=== PATIENT | female | born 1950 | race African-American/Black ===

== ENCOUNTER 2016-06-23 15:23 | Inpatient (IN) | payer OTHER, MEDICAID ==
[~2016-06-23] VITALS: Ht 167.6 cm; Wt 69.0 kg
[~2016-06-23 15:23] MED LIST: AMLO-512 PO; ASPI-1093 PO; DOXY50CA2 PO; LISI-662 PO; METF500T4 PO; METO50 PO; QUET300T2 PO; SIMV20TA6 PO
[2016-06-23 17:13] LABS: BASOPHILS % (AUTO) 0.2 % (0.0-2.0); EOSINOPHILS % (AUTO) 2.3 % (1.0-6.0); HEMATOCRIT 38.1 % (36-46); HEMOGLOBIN 12.6 g/dL (12.0-16.0); LYMPHOCYTES # (AUTO) 1.6 K/uL (1.0-4.8); LYMPHOCYTES % (AUTO) 13.1 % (22.0-44.0); MEAN CORPUSCULAR HEMOGLOBIN 31.9 pg (26.0-34.0); MEAN CORPUSCULAR HGB CONC 32.9 G/dL (31.0-37.0); MEAN CORPUSCULAR VOLUME 97 fL (80-100); MONOCYTES # (AUTO) 1.1 K/uL (0.1-1.0); MONOCYTES % (AUTO) 9.1 % (2.0-9.0); NEUTROPHILS # (AUTO) 9.3 K/uL (1.8-7.7); NEUTROPHILS % (AUTO) 75.3 % (40.0-70.0); PLATELET COUNT (AUTO) 325 K/uL (150-450); RED BLOOD CELL COUNT(AUTO) 3.94 MIL/uL (4.00-5.20); RED CELL DISTRIBUTION WIDTH 14.6 % (11.5-14.5); WHITE BLOOD COUNT (AUTO) 12.4 K/uL (4.5-11.0)
[2016-06-23 17:30] LABS: ANION GAP 20 mmol/L (8-16); CALCIUM, TOTAL 9.3 mg/dL (8.8-10.5); CARBON DIOXIDE 17 mmol/L (22-29); CHLORIDE 104 mmol/L (98-107); CREATININE 2.21 mg/dL (0.60-1.30); GLOMERULAR FILTR. RATE CALC 27 mL/min (>60); SODIUM SERUM 141 mmol/L (136-145); UREA NITROGEN, BLOOD 27 mg/dL (7-18)
[2016-06-23 17:37] LABS: ALANINE AMINOTRANSFERASE 43 U/L (12-78); ALBUMIN 3.6 g/dL (3.4-5.0); ASPARTATE AMINOTRANSFERASE 41 U/L (15-37); BILIRUBIN,TOTAL 0.6 mg/dL (0.1-1.0); TOTAL PROTEIN, SERUM 7.7 g/dL (6.4-8.2)
[2016-06-23 20:40] LABS: GLUCOSE,POINT OF CARE 137 MG/DL (70-110)
[2016-06-23] MEDS ORDERED: SODIUM CHLORIDE 0.9% 1,000 ML IV ONE (22:30)
[2016-06-24] MEDS ORDERED: HALOPERIDOL 5 MG TABLET PO PRN (00:15)
[2016-06-24] MEDS ORDERED: ZOLPIDEM TARTRATE 10 MG TABLET PO PRN (00:15)
[2016-06-24 02:42] VITALS: BP 100/71
[2016-06-24 06:26] LABS: GLUCOSE,POINT OF CARE 122 MG/DL (70-110)
[2016-06-24 08:49] VITALS: BP 164/105
[2016-06-24] MEDS: AmLODIPine BESYLATE 10 MG TABLET PO SCH (10:22)
[2016-06-24] MEDS: ASPIRIN 81 MG EC TABLET PO SCH (10:22)
[2016-06-24] MEDS: SIMVASTATIN 20 MG TABLET PO SCH (10:22)
[2016-06-24] MEDS: METOPROLOL TARTRATE 50 MG TABLET PO SCH (13:07)
[2016-06-24 13:45] VITALS: BP 129/93
[2016-06-24 16:20] LABS: GLUCOSE,POINT OF CARE 177 MG/DL (70-110)
[2016-06-24] MEDS: MetFORMIN HCL 500 MG TABLET PO SCH (16:50)
[2016-06-24] MEDS: LORazepam 2 MG TABLET PO PRN (16:50)
[2016-06-24 18:07] VITALS: BP 125/72
[2016-06-24 20:35] LABS: GLUCOSE,POINT OF CARE 143 MG/DL (70-110)
[2016-06-25] MEDS: MetFORMIN HCL 500 MG TABLET PO SCH ×2 (06:49→16:35)
[2016-06-25 06:51] LABS: GLUCOSE,POINT OF CARE 135 MG/DL (70-110)
[2016-06-25 06:56] VITALS: BP 138/86
[2016-06-25] MEDS: MULTIVITAMINS WITH MINERALS, THERAPEUTIC TABLET PO SCH (09:25)
[2016-06-25] MEDS: METOPROLOL TARTRATE 50 MG TABLET PO SCH (09:25)
[2016-06-25] MEDS: AmLODIPine BESYLATE 10 MG TABLET PO SCH (09:26)
[2016-06-25] MEDS: ASPIRIN 81 MG EC TABLET PO SCH (09:26)
[2016-06-25] MEDS: SIMVASTATIN 20 MG TABLET PO SCH (09:26)
[2016-06-25 09:33] LABS: APPEARANCE,URINE CLOUDY (CLEAR); GLUCOSE, URINE (UA) NEGATIVE (NEGATIVE); KETONES,URINE 15 mg/dL (NEGATIVE); LEUKOCYTE ESTERASE ,URINE MODERATE (NEGATIVE); OCCULT BLOOD,URINE TRACE (NEGATIVE); PROTEIN,URINE SEE CONFIRM (NEGATIVE)
[2016-06-25 09:38] LABS: ADD UA MICROSCOPIC YES
[2016-06-25 09:39] LABS: SULFOSALICYLIC ACID,URINE 2+ (Negative)
[2016-06-25 09:41] LABS: RENAL EPITHELIAL CELLS,URINE Few /LPF (None Seen); SQUAMOUS EPITHELIAL CELL,UR Few /LPF (None Seen); WBC,URINE 51-100 /HPF (0-5)
[2016-06-25 11:05] LABS: GLUCOSE,POINT OF CARE 112 MG/DL (70-110)
[2016-06-25] MEDS ORDERED: PERMETHRIN 5% 60 GM CREAM TP ONE (11:30)
[2016-06-25] MEDS: CEPHALEXIN MONOHYDRATE 500 MG CAPSULE PO SCH ×2 (13:00→16:35)
[2016-06-25 16:19] VITALS: BP 145/86
[2016-06-25] MEDS: DOXYCYCLINE 100 MG CAPSULE PO SCH (16:35)
[2016-06-25 16:46] LABS: GLUCOSE COMMENT 1 Received Meds; GLUCOSE,POINT OF CARE 118 MG/DL (70-110)
[2016-06-25 17:31] VITALS: BP 130/76
[2016-06-25] MEDS: QUEtiapine FUMARATE 300 MG TABLET PO SCH (20:08)
[2016-06-25 20:36] LABS: GLUCOSE COMMENT 1 Received Meds; GLUCOSE,POINT OF CARE 168 MG/DL (70-110)
[2016-06-26] MEDS: MetFORMIN HCL 500 MG TABLET PO SCH ×2 (06:55→17:00)
[2016-06-26] MEDS: CEPHALEXIN MONOHYDRATE 500 MG CAPSULE PO SCH ×3 (09:00→16:54)
[2016-06-26] MEDS: ASPIRIN 81 MG EC TABLET PO SCH (09:00)
[2016-06-26] MEDS: SIMVASTATIN 20 MG TABLET PO SCH (09:00)
[2016-06-26] MEDS: METOPROLOL TARTRATE 50 MG TABLET PO SCH (09:00)
[2016-06-26] MEDS: MULTIVITAMINS WITH MINERALS, THERAPEUTIC TABLET PO SCH (09:00)
[2016-06-26] MEDS: DOXYCYCLINE 100 MG CAPSULE PO SCH ×2 (09:00→16:54)
[2016-06-26] MEDS: AmLODIPine BESYLATE 10 MG TABLET PO SCH (09:00)
[2016-06-26 09:25] VITALS: BP 126/93
[2016-06-26 11:26] LABS: GLUCOSE,POINT OF CARE 118 MG/DL (70-110)
[2016-06-26 16:12] VITALS: BP 155/68
[2016-06-26 17:01] LABS: GLUCOSE,POINT OF CARE 124 MG/DL (70-110)
[2016-06-26] MEDS: LORazepam 2 MG TABLET PO PRN (17:26)
[2016-06-26 20:35] VITALS: BP 161/110
[2016-06-26] MEDS: CloNIDine HCL 0.1 MG TABLET PO PRN (20:37)
[2016-06-26] MEDS: QUEtiapine FUMARATE 300 MG TABLET PO SCH (20:37)
[2016-06-26 21:44] VITALS: BP 148/73
[2016-06-27] MEDS: MetFORMIN HCL 500 MG TABLET PO SCH ×2 (07:00→17:00)
[2016-06-27 09:45] VITALS: BP 175/105
[2016-06-27] MEDS: CEPHALEXIN MONOHYDRATE 500 MG CAPSULE PO SCH ×3 (09:45→17:00)
[2016-06-27] MEDS: METOPROLOL TARTRATE 50 MG TABLET PO SCH (09:45)
[2016-06-27] MEDS: ASPIRIN 81 MG EC TABLET PO SCH (09:45)
[2016-06-27] MEDS: MULTIVITAMINS WITH MINERALS, THERAPEUTIC TABLET PO SCH (09:46)
[2016-06-27] MEDS: AmLODIPine BESYLATE 10 MG TABLET PO SCH (09:46)
[2016-06-27] MEDS: DOXYCYCLINE 100 MG CAPSULE PO SCH ×2 (09:46→17:00)
[2016-06-27] MEDS: SIMVASTATIN 20 MG TABLET PO SCH (09:46)
[2016-06-27 11:25] VITALS: BP 164/101
[2016-06-27] MEDS: LORazepam 2 MG TABLET PO PRN ×2 (11:28→17:20)
[2016-06-27] MEDS: CloNIDine HCL 0.1 MG TABLET PO PRN ×2 (11:28→17:20)
[2016-06-27 12:30] VITALS: BP 110/56
[2016-06-27 13:06] LABS: GLUCOSE,POINT OF CARE 159 MG/DL (70-110)
[2016-06-27 17:00] VITALS: BP 160/112
[2016-06-27 18:00] VITALS: BP 120/82
[2016-06-27] MEDS: QUEtiapine FUMARATE 300 MG TABLET PO SCH (20:09)
[2016-06-28 06:17] LABS: GLUCOSE,POINT OF CARE 137 MG/DL (70-110)
[2016-06-28] MEDS: MetFORMIN HCL 500 MG TABLET PO SCH ×2 (06:44→16:33)
[2016-06-28] MEDS: MULTIVITAMINS WITH MINERALS, THERAPEUTIC TABLET PO SCH (09:00)
[2016-06-28] MEDS: DOXYCYCLINE 100 MG CAPSULE PO SCH ×2 (09:00→16:33)
[2016-06-28] MEDS: ASPIRIN 81 MG EC TABLET PO SCH (09:00)
[2016-06-28] MEDS: ZINC OXIDE PASTE 60 GM TUBE TP SCH ×3 (09:00→17:00)
[2016-06-28] MEDS: AmLODIPine BESYLATE 10 MG TABLET PO SCH (09:00)
[2016-06-28] MEDS: SIMVASTATIN 20 MG TABLET PO SCH (09:00)
[2016-06-28] MEDS: CEPHALEXIN MONOHYDRATE 500 MG CAPSULE PO SCH ×3 (09:00→16:34)
[2016-06-28] MEDS: METOPROLOL TARTRATE 50 MG TABLET PO SCH (09:00)
[2016-06-28 16:24] VITALS: BP 156/90
[2016-06-28 16:31] LABS: GLUCOSE,POINT OF CARE 178 MG/DL (70-110)
[2016-06-28 19:41] LABS: GLUCOSE,POINT OF CARE 171 MG/DL (70-110)
[2016-06-28] MEDS: CloNIDine HCL 0.1 MG TABLET PO PRN (19:51)
[2016-06-28 19:52] VITALS: BP 169/116
[2016-06-28] MEDS: QUEtiapine FUMARATE 300 MG TABLET PO SCH (20:41)
[2016-06-28 21:06] VITALS: BP 150/92
[2016-06-28] MEDS: ZOLPIDEM TARTRATE 10 MG TABLET PO SCH (21:08)
[2016-06-29 01:21] VITALS: BP 144/95
[2016-06-29] MEDS: MetFORMIN HCL 500 MG TABLET PO SCH ×2 (06:56→17:12)
[2016-06-29 08:15] VITALS: BP 171/101
[2016-06-29] MEDS: AmLODIPine BESYLATE 10 MG TABLET PO SCH (08:25)
[2016-06-29] MEDS: ASPIRIN 81 MG EC TABLET PO SCH (08:25)
[2016-06-29] MEDS: CloNIDine HCL 0.1 MG TABLET PO PRN (08:25)
[2016-06-29] MEDS: SIMVASTATIN 20 MG TABLET PO SCH (08:27)
[2016-06-29] MEDS: CEPHALEXIN MONOHYDRATE 500 MG CAPSULE PO SCH ×3 (08:45→17:12)
[2016-06-29] MEDS: METOPROLOL TARTRATE 50 MG TABLET PO SCH (08:47)
[2016-06-29] MEDS: DOXYCYCLINE 100 MG CAPSULE PO SCH ×2 (08:47→17:12)
[2016-06-29] MEDS: MULTIVITAMINS WITH MINERALS, THERAPEUTIC TABLET PO SCH (08:47)
[2016-06-29] MEDS: ZINC OXIDE PASTE 60 GM TUBE TP SCH ×3 (08:54→17:00)
[2016-06-29 10:35] VITALS: BP 151/89
[2016-06-29] MEDS: LORazepam 2 MG TABLET PO PRN (16:37)
[2016-06-29 16:38] VITALS: BP 121/76
[2016-06-29 16:41] LABS: GLUCOSE,POINT OF CARE 236 MG/DL (70-110)
[2016-06-29] MEDS: INSULIN ASPART 100 UNITS/ML SQ PRN ×2 (17:27→20:27)
[2016-06-29] MEDS ORDERED: GLUCAGON,HUMAN RECOMBINANT 1 MG VIAL IM PRN (17:30)
[2016-06-29 20:01] LABS: GLUCOSE,POINT OF CARE 169 MG/DL (70-110)
[2016-06-29] MEDS: ZOLPIDEM TARTRATE 10 MG TABLET PO SCH (20:28)
[2016-06-29] MEDS: QUEtiapine FUMARATE 300 MG TABLET PO SCH (20:28)
[2016-06-29 23:15] VITALS: BP 146/96
[2016-06-29 23:35] VITALS: BP_SYST 146; BP_SYST 149; BP_DIAS 81; BP_DIAS 96
[2016-06-30] VITALS (7 sets, daily range): BP systolic 120–167; BP diastolic 70–105
[2016-06-30] MEDS: MetFORMIN HCL 500 MG TABLET PO SCH ×2 (06:56→16:45)
[2016-06-30] MEDS: METOPROLOL TARTRATE 50 MG TABLET PO SCH (09:00)
[2016-06-30] MEDS: ZINC OXIDE PASTE 60 GM TUBE TP SCH ×3 (09:00→16:08)
[2016-06-30] MEDS: DOXYCYCLINE 100 MG CAPSULE PO SCH ×2 (09:00→16:45)
[2016-06-30] MEDS: SIMVASTATIN 20 MG TABLET PO SCH (09:00)
[2016-06-30] MEDS: CEPHALEXIN MONOHYDRATE 500 MG CAPSULE PO SCH ×3 (09:00→16:46)
[2016-06-30] MEDS: MULTIVITAMINS WITH MINERALS, THERAPEUTIC TABLET PO SCH (09:00)
[2016-06-30] MEDS: AmLODIPine BESYLATE 10 MG TABLET PO SCH (09:01)
[2016-06-30] MEDS: ASPIRIN 81 MG EC TABLET PO SCH (09:02)
[2016-06-30 12:01] LABS: GLUCOSE,POINT OF CARE 121 MG/DL (70-110)
[2016-06-30] MEDS ORDERED: OxyCODONE HCL/ACETAMINOPHEN 5-325 MG TABLET PO ONE (14:15)
[2016-06-30] MEDS ORDERED: IBUPROFEN 400 MG TABLET PO PRN (15:30)
[2016-06-30] MEDS: INSULIN ASPART 100 UNITS/ML SQ PRN ×2 (16:58→20:27)
[2016-06-30 17:11] LABS: GLUCOSE COMMENT 1 Received Meds; GLUCOSE,POINT OF CARE 148 MG/DL (70-110)
[2016-06-30] MEDS: CloNIDine HCL 0.1 MG TABLET PO PRN (17:35)
[2016-06-30] MEDS: ZOLPIDEM TARTRATE 10 MG TABLET PO SCH (20:04)
[2016-06-30] MEDS: QUEtiapine FUMARATE 300 MG TABLET PO SCH (20:04)
[2016-06-30 20:26] LABS: GLUCOSE COMMENT 1 Received Meds; GLUCOSE,POINT OF CARE 158 MG/DL (70-110)
[2016-07-01] VITALS (7 sets, daily range): BP systolic 107–172; BP diastolic 76–94
[2016-07-01 06:31] LABS: GLUCOSE,POINT OF CARE 134 MG/DL (70-110)
[2016-07-01] MEDS: MetFORMIN HCL 500 MG TABLET PO SCH ×2 (06:41→16:48)
[2016-07-01] MEDS: DOXYCYCLINE 100 MG CAPSULE PO SCH ×2 (08:29→16:48)
[2016-07-01] MEDS: CEPHALEXIN MONOHYDRATE 500 MG CAPSULE PO SCH ×3 (08:30→16:48)
[2016-07-01] MEDS: ZINC OXIDE PASTE 60 GM TUBE TP SCH ×3 (08:30→17:15)
[2016-07-01] MEDS: AmLODIPine BESYLATE 10 MG TABLET PO SCH (08:30)
[2016-07-01] MEDS: SIMVASTATIN 20 MG TABLET PO SCH (08:30)
[2016-07-01] MEDS: METOPROLOL TARTRATE 25 MG TABLET PO SCH (08:30)
[2016-07-01] MEDS: ASPIRIN 81 MG EC TABLET PO SCH (08:30)
[2016-07-01] MEDS: MULTIVITAMINS WITH MINERALS, THERAPEUTIC TABLET PO SCH (08:30)
[2016-07-01 11:36] LABS: GLUCOSE,POINT OF CARE 100 MG/DL (70-110)
[2016-07-01] MEDS: ACETAMINOPHEN 325 MG TABLET PO PRN (13:52)
[2016-07-01] MEDS: NICOTINE 14 MG/24 HOUR PATCH TD SCH (15:08)
[2016-07-01 16:31] LABS: GLUCOSE,POINT OF CARE 148 MG/DL (70-110)
[2016-07-01] MEDS: INSULIN ASPART 100 UNITS/ML SQ PRN ×2 (16:50→20:53)
[2016-07-01] MEDS: DiphenhydrAMINE/ZINC ACET 30 GM CREAM TP PRN (18:01)
[2016-07-01 20:16] LABS: GLUCOSE,POINT OF CARE 172 MG/DL (70-110)
[2016-07-01] MEDS: ZOLPIDEM TARTRATE 10 MG TABLET PO SCH (20:42)
[2016-07-01] MEDS: QUEtiapine FUMARATE 100 MG TABLET PO SCH (20:46)
[2016-07-02 03:47] VITALS: BP 107/83
[2016-07-02 06:26] LABS: GLUCOSE,POINT OF CARE 111 MG/DL (70-110)
[2016-07-02] MEDS: MetFORMIN HCL 500 MG TABLET PO SCH ×2 (06:38→16:50)
[2016-07-02] MEDS: DOXYCYCLINE 100 MG CAPSULE PO SCH ×2 (08:44→16:50)
[2016-07-02] MEDS: SIMVASTATIN 20 MG TABLET PO SCH (08:44)
[2016-07-02] MEDS: MULTIVITAMINS WITH MINERALS, THERAPEUTIC TABLET PO SCH (08:44)
[2016-07-02] MEDS: METOPROLOL TARTRATE 25 MG TABLET PO SCH (08:44)
[2016-07-02] MEDS: AmLODIPine BESYLATE 10 MG TABLET PO SCH (08:44)
[2016-07-02] MEDS: CEPHALEXIN MONOHYDRATE 500 MG CAPSULE PO SCH ×3 (08:44→16:50)
[2016-07-02] MEDS: ASPIRIN 81 MG EC TABLET PO SCH (08:44)
[2016-07-02] MEDS: NICOTINE 14 MG/24 HOUR PATCH TD SCH (08:45)
[2016-07-02] MEDS: ZINC OXIDE PASTE 60 GM TUBE TP SCH ×3 (08:47→16:58)
[2016-07-02] MEDS: DiphenhydrAMINE/ZINC ACET 30 GM CREAM TP PRN (08:47)
[2016-07-02 09:21] VITALS: BP 149/83
[2016-07-02 11:46] LABS: GLUCOSE,POINT OF CARE 104 MG/DL (70-110)
[2016-07-02 16:10] VITALS: BP 142/80
[2016-07-02 16:38] VITALS: BP 142/80
[2016-07-02 16:46] LABS: GLUCOSE,POINT OF CARE 144 MG/DL (70-110)
[2016-07-02] MEDS: INSULIN ASPART 100 UNITS/ML SQ PRN (16:50)
[2016-07-02] MEDS: HYDROCORTISONE 1% 30 GM OINTMENT TP SCH (18:00)
[2016-07-02 19:48] VITALS: BP 163/94
[2016-07-02] MEDS: CloNIDine HCL 0.1 MG TABLET PO PRN (19:48)
[2016-07-02] MEDS: ACETAMINOPHEN 325 MG TABLET PO PRN (19:50)
[2016-07-02 20:30] LABS: GLUCOSE,POINT OF CARE 101 MG/DL (70-110)
[2016-07-02 20:50] VITALS: BP 124/74
[2016-07-02] MEDS: QUEtiapine FUMARATE 100 MG TABLET PO SCH (21:07)
[2016-07-02] MEDS: ZOLPIDEM TARTRATE 10 MG TABLET PO SCH (21:07)
[2016-07-03 04:49] VITALS: BP 125/83
[2016-07-03] MEDS: MetFORMIN HCL 500 MG TABLET PO SCH ×3 (06:21→16:31)
[2016-07-03 06:47] LABS: GLUCOSE,POINT OF CARE 128 MG/DL (70-110)
[2016-07-03 09:05] VITALS: BP 125/82
[2016-07-03] MEDS: ASPIRIN 81 MG EC TABLET PO SCH (09:05)
[2016-07-03] MEDS: CEPHALEXIN MONOHYDRATE 500 MG CAPSULE PO SCH ×3 (09:05→16:31)
[2016-07-03] MEDS: SIMVASTATIN 20 MG TABLET PO SCH (09:05)
[2016-07-03] MEDS: DOXYCYCLINE 100 MG CAPSULE PO SCH ×2 (09:05→16:31)
[2016-07-03] MEDS: MULTIVITAMINS WITH MINERALS, THERAPEUTIC TABLET PO SCH (09:05)
[2016-07-03] MEDS: AmLODIPine BESYLATE 10 MG TABLET PO SCH (09:05)
[2016-07-03] MEDS: METOPROLOL TARTRATE 25 MG TABLET PO SCH (09:06)
[2016-07-03] MEDS: ZINC OXIDE PASTE 60 GM TUBE TP SCH ×3 (10:10→16:33)
[2016-07-03] MEDS: HYDROCORTISONE 1% 30 GM OINTMENT TP SCH ×2 (10:10→16:33)
[2016-07-03] MEDS: NICOTINE 14 MG/24 HOUR PATCH TD SCH (10:11)
[2016-07-03 10:55] LABS: GLUCOSE COMMENT 1 Received Meds; GLUCOSE,POINT OF CARE 80 MG/DL (70-110)
[2016-07-03 16:09] VITALS: BP 124/62
[2016-07-03 16:35] LABS: GLUCOSE COMMENT 1 Received Meds; GLUCOSE,POINT OF CARE 139 MG/DL (70-110)
[2016-07-03] MEDS: ACETAMINOPHEN 325 MG TABLET PO PRN (19:31)
[2016-07-03] MEDS: ZOLPIDEM TARTRATE 10 MG TABLET PO SCH (19:58)
[2016-07-03] MEDS: QUEtiapine FUMARATE 100 MG TABLET PO SCH (19:58)
[2016-07-03 20:01] LABS: GLUCOSE COMMENT 1 Received Meds; GLUCOSE,POINT OF CARE 122 MG/DL (70-110)
[2016-07-04 06:11] LABS: GLUCOSE,POINT OF CARE 92 MG/DL (70-110)
[2016-07-04 06:33] VITALS: BP 127/97
[2016-07-04] MEDS: MetFORMIN HCL 500 MG TABLET PO SCH ×2 (07:00→16:33)
[2016-07-04] MEDS: SIMVASTATIN 20 MG TABLET PO SCH (08:52)
[2016-07-04] MEDS: ASPIRIN 81 MG EC TABLET PO SCH (08:52)
[2016-07-04] MEDS: METOPROLOL TARTRATE 25 MG TABLET PO SCH (08:52)
[2016-07-04] MEDS: AmLODIPine BESYLATE 10 MG TABLET PO SCH (08:53)
[2016-07-04] MEDS: MULTIVITAMINS WITH MINERALS, THERAPEUTIC TABLET PO SCH (08:53)
[2016-07-04] MEDS: NICOTINE 14 MG/24 HOUR PATCH TD SCH (08:53)
[2016-07-04] MEDS: CEPHALEXIN MONOHYDRATE 500 MG CAPSULE PO SCH ×3 (08:53→16:33)
[2016-07-04] MEDS: DOXYCYCLINE 100 MG CAPSULE PO SCH ×2 (08:53→16:33)
[2016-07-04 08:54] VITALS: BP 170/103
[2016-07-04] MEDS: HYDROCORTISONE 1% 30 GM OINTMENT TP SCH ×2 (09:04→16:34)
[2016-07-04] MEDS: ZINC OXIDE PASTE 60 GM TUBE TP SCH ×3 (09:04→16:33)
[2016-07-04 10:35] VITALS: BP 164/96
[2016-07-04] MEDS: CloNIDine HCL 0.1 MG TABLET PO PRN (10:45)
[2016-07-04 11:06] LABS: GLUCOSE,POINT OF CARE 108 MG/DL (70-110)
[2016-07-04 11:50] VITALS: BP 149/91
[2016-07-04 16:06] VITALS: BP 126/81
[2016-07-04 16:16] LABS: GLUCOSE,POINT OF CARE 98 MG/DL (70-110)
[2016-07-04 20:26] LABS: GLUCOSE,POINT OF CARE 123 MG/DL (70-110)
[2016-07-04] MEDS: QUEtiapine FUMARATE 100 MG TABLET PO SCH (21:04)
[2016-07-04] MEDS: ZOLPIDEM TARTRATE 10 MG TABLET PO SCH (21:04)
[2016-07-05] MEDS: MetFORMIN HCL 500 MG TABLET PO SCH ×2 (07:00→07:21)
[2016-07-05] MEDS: DOXYCYCLINE 100 MG CAPSULE PO SCH (08:33)
[2016-07-05] MEDS: ASPIRIN 81 MG EC TABLET PO SCH (08:33)
[2016-07-05] MEDS: MULTIVITAMINS WITH MINERALS, THERAPEUTIC TABLET PO SCH (08:33)
[2016-07-05] MEDS: SIMVASTATIN 20 MG TABLET PO SCH (08:33)
[2016-07-05] MEDS: AmLODIPine BESYLATE 10 MG TABLET PO SCH (08:33)
[2016-07-05] MEDS: NICOTINE 14 MG/24 HOUR PATCH TD SCH (08:33)
[2016-07-05] MEDS: METOPROLOL TARTRATE 25 MG TABLET PO SCH (08:33)
[2016-07-05] MEDS: CEPHALEXIN MONOHYDRATE 500 MG CAPSULE PO SCH ×2 (08:33→12:33)
[2016-07-05] MEDS: HYDROCORTISONE 1% 30 GM OINTMENT TP SCH (08:34)
[2016-07-05] MEDS: ZINC OXIDE PASTE 60 GM TUBE TP SCH ×2 (08:34→12:33)
[2016-07-05 08:42] VITALS: BP 128/82
[2016-07-05 11:21] LABS: GLUCOSE,POINT OF CARE 109 MG/DL (70-110)
[2016-07-05] MEDS ORDERED: ZOLP10 PO (14:06)
== END 2016-07-05 14:30 | disposition home or self-care (01) | DRG 885 ==
LOC: EMS 15:25 → B2X 06-24 00:09
PROVIDERS: ADMIT Psychiatry & Neurology Psychiatry; ATTEND Psychiatry & Neurology Psychiatry
DX: F25.0 Schizoaffective disorder, bipolar type (principal); N39.0 Urinary tract infection, site not specified; F12.10 Cannabis abuse, uncomplicated; F15.10 Other stimulant abuse, uncomplicated; K21.9 Gastro-esophageal reflux disease without esophagitis; F17.210 Nicotine dependence, cigarettes, uncomplicated; E78.00 Pure hypercholesterolemia, unspecified; I25.10 Atherosclerotic heart disease of native coronary artery without angina pectoris; J44.9 Chronic obstructive pulmonary disease, unspecified; E86.0 Dehydration; M19.90 Unspecified osteoarthritis, unspecified site; E11.22 Type 2 diabetes mellitus with diabetic chronic kidney disease; I12.9 Hypertensive chronic kidney disease with stage 1 through stage 4 chronic kidney disease, or unspecified chronic kidney disease; N18.3 Chronic kidney disease, stage 3 (moderate); E78.5 Hyperlipidemia, unspecified; L30.9 Dermatitis, unspecified; Z90.710 Acquired absence of both cervix and uterus; Z95.1 Presence of aortocoronary bypass graft; Z91.14 Patient's other noncompliance with medication regimen; Z79.899 Other long term (current) drug therapy; Z86.73 Personal history of transient ischemic attack (TIA), and cerebral infarction without residual deficits; Z79.82 Long term (current) use of aspirin; Z79.84 Long term (current) use of oral hypoglycemic drugs
CPT/HCPCS: 80307; 82962; 87081; 87086; 93005; 96360; 96361; 99285; G0480

== ENCOUNTER 2016-08-01 21:57 | Inpatient (IN) | payer MEDICARE, MEDICAID ==
[~2016-08-01] VITALS: Ht 165.1 cm; Wt 71.2 kg
[~2016-08-01 21:57] MED LIST changes: -LISI-662 PO; +ZOLP10 PO
[2016-08-01] MEDS ORDERED: ESCI10TA PO (22:15)
[2016-08-01] MEDS ORDERED: DIPH25CA48 PO (22:15)
[2016-08-01] MEDS ORDERED: LISI-662 PO (22:15)
[2016-08-01] MEDS ORDERED: CLON.1 PO (22:15)
[2016-08-01] MEDS ORDERED: BACL10TA PO (22:15)
[2016-08-01] MEDS ORDERED: LORA10TA7 PO (22:15)
[2016-08-01] MEDS ORDERED: D-ME118S13 PO (22:15)
[2016-08-01 22:16] LABS: GLUCOSE,POINT OF CARE 127 MG/DL (70-110)
[2016-08-01 23:00] LABS: BASOPHILS # (AUTO) 0.01 K/uL (0.00-0.20); BASOPHILS % (AUTO) 0.1 % (0.0-2.0); EOSINOPHILS # (AUTO) 0.46 K/uL (0.00-0.70); EOSINOPHILS % (AUTO) 3.55 % (1.0-6.0); HEMATOCRIT 40.8 % (36-46); HEMOGLOBIN 13.5 g/dL (12.0-16.0); LYMPHOCYTES # (AUTO) 2.2 K/uL (1.0-4.8); LYMPHOCYTES % (AUTO) 17.2 % (22.0-44.0); MEAN CORPUSCULAR HEMOGLOBIN 31.1 pg (26.0-34.0); MEAN CORPUSCULAR HGB CONC 33.1 G/dL (31.0-37.0); MEAN CORPUSCULAR VOLUME 94 fL (80-100); MONOCYTES # (AUTO) 0.7 K/uL (0.1-1.0); NEUTROPHILS # (AUTO) 9.7 K/uL (1.8-7.7); NEUTROPHILS % (AUTO) 74.2 % (40.0-70.0); PLATELET COUNT (AUTO) 280 K/uL (150-450); RED BLOOD CELL COUNT(AUTO) 4.34 MIL/uL (4.00-5.20); RED CELL DISTRIBUTION WIDTH 15.7 % (11.5-14.5)
[2016-08-01 23:05] LABS: APPEARANCE,URINE CLEAR (CLEAR); GLUCOSE, URINE (UA) NEGATIVE (NEGATIVE); KETONES,URINE 40 mg/dL (NEGATIVE); LEUKOCYTE ESTERASE ,URINE NEGATIVE (NEGATIVE); OCCULT BLOOD,URINE TRACE (NEGATIVE); PH,URINE 5.5 (5.0-8.0); PROTEIN,URINE SEE CONFIRM (NEGATIVE)
[2016-08-01 23:08] LABS: ADD UA MICROSCOPIC YES
[2016-08-01 23:10] LABS: ANION GAP 19 mmol/L (8-16); CALCIUM, TOTAL 9.8 mg/dL (8.8-10.5); CARBON DIOXIDE 17 mmol/L (22-29); CHLORIDE 108 mmol/L (98-107); CREATININE 1.07 mg/dL (0.60-1.30); GLOMERULAR FILTR. RATE CALC > 60 mL/min (>60); INR 1.1 (0.9-1.1); POTASSIUM 3.9 mmol/L (3.5-5.1); PROTHROMBIN TIME 11.2 SEC (9.4-11.6); SODIUM SERUM 144 mmol/L (136-145); UREA NITROGEN, BLOOD 23 mg/dL (7-18)
[2016-08-01 23:18] LABS: TROPONIN I 0.21 ng/mL (0.00-0.05)
[2016-08-01 23:34] LABS: ALANINE AMINOTRANSFERASE 20 U/L (12-78); ALBUMIN 3.7 g/dL (3.4-5.0); ASPARTATE AMINOTRANSFERASE 25 U/L (15-37); BILIRUBIN,TOTAL 0.9 mg/dL (0.1-1.0); CREATINE KINASE MB 3.1 ng/mL (0-5); CREATINE KINASE, TOTAL 98 U/L (26-192); TOTAL PROTEIN, SERUM 7.8 g/dL (6.4-8.2)
[2016-08-01 23:43] LABS: AMORPHOUS SEDIMENT,UR Few /LPF (None Seen); RBC,URINE 0-2 /HPF (0-2); SQUAMOUS EPITHELIAL CELL,UR Few /LPF (None Seen); WBC,URINE None Seen /HPF (0-5)
[2016-08-01 23:44] LABS: HYALINE CASTS, URINE 0-2 /LPF (None Seen); SULFOSALICYLIC ACID,URINE Trace (Negative)
[2016-08-02] MEDS ORDERED: LABETALOL HCL 200 MG in DEXTROSE 5%-WATER 160 ML IV PRN ×2
[2016-08-02] MEDS ORDERED: ONDANSETRON HCL 4 MG/2 ML VIAL IVP PRN (00:30)
[2016-08-02 02:57] LABS: GLUCOSE,POINT OF CARE 134 MG/DL (70-110)
[2016-08-02] MEDS ORDERED: LISINOPRIL 20 MG TABLET PO ONE (11:15)
[2016-08-02] MEDS ORDERED: NICOTINE 21 MG/24 HOUR PATCH TD ONE (16:00)
[2016-08-02 16:53] LABS: CREATINE KINASE, TOTAL 53 U/L (26-192)
[2016-08-02] MEDS ORDERED: METOPROLOL TARTRATE 50 MG TABLET PO ONE (17:30)
[2016-08-02] MEDS ORDERED: BACLOFEN 10 MG TABLET PO PRN (20:00)
[2016-08-02] MEDS ORDERED: PROMETHAZINE HCL/D-METHORPHAN HB 5 ML ORAL.SYG PO PRN (20:00)
[2016-08-02 20:44] VITALS: BP 175/98
[2016-08-02] MEDS: LISINOPRIL 20 MG TABLET PO SCH (20:44)
[2016-08-02] MEDS: LORATADINE 10 MG TABLET PO SCH (20:44)
[2016-08-02] MEDS: METOPROLOL TARTRATE 50 MG TABLET PO SCH (20:45)
[2016-08-02] MEDS: ASPIRIN 81 MG EC TABLET PO SCH (20:45)
[2016-08-02] MEDS: SIMVASTATIN 20 MG TABLET PO SCH (20:45)
[2016-08-02] MEDS ORDERED: METOPROLOL TARTRATE 25 MG TABLET PO SCH (21:00)
[2016-08-02] MEDS: ESCITALOPRAM OXALATE 10 MG TABLET PO SCH (21:40)
[2016-08-02] MEDS: CloNIDine HCL 0.1 MG TABLET PO SCH (21:40)
[2016-08-02] MEDS: DiphenhydrAMINE HCL 25 MG CAPSULE PO PRN (23:15)
[2016-08-02] MEDS: HEPARIN SODIUM,PORCINE 5,000 UNITS/ML VIAL SQ SCH (23:16)
[2016-08-02] MEDS ORDERED: -PHARMACY VACCINE NOTE- MISC ONE ×2 (23:45)
[2016-08-02] MEDS ORDERED: PNEUMOCOCCAL VACCINE POLYVALENT 0.5 ML VIAL [PPSV23] IM ONE (23:45)
[2016-08-02 23:52] VITALS: BP 148/90
[2016-08-03] LABS: CREATINE KINASE, TOTAL 56 U/L (26-192)
[2016-08-03 03:51] VITALS: BP 156/85
[2016-08-03 06:35] LABS: BASOPHILS % (AUTO) 0.3 % (0.0-2.0); EOSINOPHILS % (AUTO) 5.7 % (1.0-6.0); HEMATOCRIT 38.7 % (36-46); HEMOGLOBIN 12.6 g/dL (12.0-16.0); LYMPHOCYTES # (AUTO) 2.2 K/uL (1.0-4.8); LYMPHOCYTES % (AUTO) 25.6 % (22.0-44.0); MEAN CORPUSCULAR HGB CONC 32.6 G/dL (31.0-37.0); MEAN CORPUSCULAR VOLUME 95 fL (80-100); MONOCYTES # (AUTO) 0.7 K/uL (0.1-1.0); NEUTROPHILS # (AUTO) 5.1 K/uL (1.8-7.7); NEUTROPHILS % (AUTO) 60.4 % (40.0-70.0); PLATELET COUNT (AUTO) 271 K/uL (150-450); RED BLOOD CELL COUNT(AUTO) 4.06 MIL/uL (4.00-5.20); RED CELL DISTRIBUTION WIDTH 14.9 % (11.5-14.5); WHITE BLOOD COUNT (AUTO) 8.5 K/uL (4.5-11.0)
[2016-08-03 07:14] LABS: B-TYPE NATRIURETIC PEPTIDE 96 pg/mL (0-100)
[2016-08-03 07:33] LABS: ALANINE AMINOTRANSFERASE 15 U/L (12-78); ALBUMIN 3.4 g/dL (3.4-5.0); ANION GAP 15 mmol/L (8-16); ASPARTATE AMINOTRANSFERASE 21 U/L (15-37); BILIRUBIN,TOTAL 0.7 mg/dL (0.1-1.0); CALCIUM, TOTAL 9.7 mg/dL (8.8-10.5); CARBON DIOXIDE 20 mmol/L (22-29); CHLORIDE 110 mmol/L (98-107); CHOL/HDL RATIO 3.1 (3.9-5.7); CREATINE KINASE MB 2.2 ng/mL (0-5); CREATINE KINASE, TOTAL 112 U/L (26-192); CREATININE 1.75 mg/dL (0.60-1.30); GLOMERULAR FILTR. RATE CALC 35 mL/min (>60); PHOSPHORUS 2.8 mg/dL (2.5-4.9); POTASSIUM 3.6 mmol/L (3.5-5.1); SODIUM SERUM 145 mmol/L (136-145); THYROID STIMULATING HORMONE 1.75 uIU/mL (0.36-3.74); TOTAL PROTEIN, SERUM 7.1 g/dL (6.4-8.2); UREA NITROGEN, BLOOD 35 mg/dL (7-18)
[2016-08-03 08:06] VITALS: BP 136/90
[2016-08-03] MEDS: HEPARIN SODIUM,PORCINE 5,000 UNITS/ML VIAL SQ SCH ×3 (09:22→23:32)
[2016-08-03] MEDS: ESCITALOPRAM OXALATE 10 MG TABLET PO SCH (09:23)
[2016-08-03] MEDS: METOPROLOL TARTRATE 50 MG TABLET PO SCH (09:23)
[2016-08-03] MEDS: LORATADINE 10 MG TABLET PO SCH (09:23)
[2016-08-03] MEDS: CloNIDine HCL 0.1 MG TABLET PO SCH ×3 (09:23→21:39)
[2016-08-03] MEDS: SIMVASTATIN 20 MG TABLET PO SCH (09:24)
[2016-08-03] MEDS: LISINOPRIL 20 MG TABLET PO SCH (09:24)
[2016-08-03] MEDS: ASPIRIN 81 MG EC TABLET PO SCH (09:24)
[2016-08-03 12:06] VITALS: BP 163/83
[2016-08-03] MEDS: DiphenhydrAMINE HCL 25 MG CAPSULE PO PRN (13:36)
[2016-08-03] MEDS: GuaiFENesin/D-METHORPHAN [SUGAR-FREE] 200-20MG/10 ML SYRUP UDCUP PO PRN (13:57)
[2016-08-03] MEDS ORDERED: LORazepam 2 MG/ML VIAL IVP ONE (15:00)
[2016-08-03 16:41] VITALS: BP 163/98
[2016-08-03 20:02] VITALS: BP 134/77
[2016-08-04] VITALS (7 sets, daily range): BP systolic 106–143; BP diastolic 64–88
[2016-08-04] MEDS: ESCITALOPRAM OXALATE 10 MG TABLET PO SCH (09:11)
[2016-08-04] MEDS: LORATADINE 10 MG TABLET PO SCH (09:11)
[2016-08-04] MEDS: SIMVASTATIN 20 MG TABLET PO SCH (09:11)
[2016-08-04] MEDS: ASPIRIN 81 MG EC TABLET PO SCH (09:11)
[2016-08-04] MEDS: LISINOPRIL 20 MG TABLET PO SCH (09:11)
[2016-08-04] MEDS: CloNIDine HCL 0.1 MG TABLET PO SCH ×3 (09:11→20:21)
[2016-08-04] MEDS: METOPROLOL TARTRATE 50 MG TABLET PO SCH (09:12)
[2016-08-04] MEDS: HEPARIN SODIUM,PORCINE 5,000 UNITS/ML VIAL SQ SCH ×2 (09:12→16:00)
[2016-08-04] MEDS: GuaiFENesin/D-METHORPHAN [SUGAR-FREE] 200-20MG/10 ML SYRUP UDCUP PO PRN (20:25)
[2016-08-05] MEDS: HEPARIN SODIUM,PORCINE 5,000 UNITS/ML VIAL SQ SCH ×4 (01:04→23:27)
[2016-08-05 04:54] VITALS: BP 134/80
[2016-08-05 06:54] LABS: CALCIUM, TOTAL 9.1 mg/dL (8.8-10.5); CREATININE 1.33 mg/dL (0.60-1.30); MAGNESIUM 1.7 mg/dL (1.80-2.40)
[2016-08-05 06:58] LABS: HEMOGLOBIN A1C 6.5 % (4.5-6.2)
[2016-08-05 07:23] VITALS: BP 136/72
[2016-08-05] MEDS: LORATADINE 10 MG TABLET PO SCH (09:10)
[2016-08-05] MEDS: ASPIRIN 81 MG EC TABLET PO SCH (09:10)
[2016-08-05] MEDS: METOPROLOL TARTRATE 50 MG TABLET PO SCH (09:10)
[2016-08-05] MEDS: ESCITALOPRAM OXALATE 10 MG TABLET PO SCH (09:10)
[2016-08-05] MEDS: LISINOPRIL 20 MG TABLET PO SCH (09:10)
[2016-08-05] MEDS: CloNIDine HCL 0.1 MG TABLET PO SCH ×3 (09:10→20:34)
[2016-08-05] MEDS: SIMVASTATIN 20 MG TABLET PO SCH (09:10)
[2016-08-05 15:27] VITALS: BP 138/71
[2016-08-05] MEDS: DiphenhydrAMINE HCL 25 MG CAPSULE PO PRN (16:32)
[2016-08-05 19:30] VITALS: BP 121/66
[2016-08-05] MEDS: OxyCODONE HCL/ACETAMINOPHEN 5-325 MG TABLET PO PRN (20:35)
[2016-08-05] MEDS: RANOLAZINE 500 MG SR TABLET PO SCH (23:27)
[2016-08-05 23:43] VITALS: BP 118/63
[2016-08-06 05:09] VITALS: BP 141/77
[2016-08-06] MEDS: OxyCODONE HCL/ACETAMINOPHEN 5-325 MG TABLET PO PRN ×2 (05:15→21:03)
[2016-08-06 06:58] LABS: BASOPHILS % (AUTO) 0.5 % (0.0-2.0); EOSINOPHILS % (AUTO) 8.1 % (1.0-6.0); HEMATOCRIT 34.4 % (36-46); HEMOGLOBIN 11.3 g/dL (12.0-16.0); LYMPHOCYTES # (AUTO) 1.8 K/uL (1.0-4.8); LYMPHOCYTES % (AUTO) 38.6 % (22.0-44.0); MEAN CORPUSCULAR HEMOGLOBIN 31.3 pg (26.0-34.0); MEAN CORPUSCULAR HGB CONC 32.7 G/dL (31.0-37.0); MEAN CORPUSCULAR VOLUME 96 fL (80-100); MONOCYTES # (AUTO) 0.5 K/uL (0.1-1.0); MONOCYTES % (AUTO) 9.7 % (2.0-9.0); NEUTROPHILS % (AUTO) 43.1 % (40.0-70.0); PLATELET COUNT (AUTO) 210 K/uL (150-450); RED CELL DISTRIBUTION WIDTH 14.7 % (11.5-14.5); WHITE BLOOD COUNT (AUTO) 4.7 K/uL (4.5-11.0)
[2016-08-06 07:15] LABS: ALBUMIN 2.7 g/dL (3.4-5.0); BILIRUBIN,TOTAL 0.3 mg/dL (0.1-1.0); CALCIUM, TOTAL 8.1 mg/dL (8.8-10.5); CREATININE 1.33 mg/dL (0.60-1.30); MAGNESIUM 1.6 mg/dL (1.80-2.40); POTASSIUM 4.3 mmol/L (3.5-5.1); TOTAL PROTEIN, SERUM 6.2 g/dL (6.4-8.2)
[2016-08-06 07:55] VITALS: BP 147/81
[2016-08-06] MEDS: RANOLAZINE 500 MG SR TABLET PO SCH ×2 (08:19→21:03)
[2016-08-06] MEDS: ISOSORBIDE MONONITRATE 30 MG ER TABLET PO SCH (08:19)
[2016-08-06] MEDS: CloNIDine HCL 0.1 MG TABLET PO SCH ×3 (08:19→20:14)
[2016-08-06] MEDS: ASPIRIN 81 MG EC TABLET PO SCH (08:19)
[2016-08-06] MEDS: LISINOPRIL 20 MG TABLET PO SCH (08:19)
[2016-08-06] MEDS: METOPROLOL TARTRATE 50 MG TABLET PO SCH (08:20)
[2016-08-06] MEDS: LORATADINE 10 MG TABLET PO SCH (08:20)
[2016-08-06] MEDS: HEPARIN SODIUM,PORCINE 5,000 UNITS/ML VIAL SQ SCH ×3 (08:20→23:55)
[2016-08-06] MEDS: ESCITALOPRAM OXALATE 10 MG TABLET PO SCH (08:20)
[2016-08-06] MEDS ORDERED: QUEtiapine FUMARATE 300 MG TABLET PO SCH (08:30)
[2016-08-06] MEDS ORDERED: ATORVASTATIN CALCIUM 40 MG TABLET PO SCH (09:00)
[2016-08-06] MEDS: QUEtiapine FUMARATE 100 MG TABLET PO SCH (11:38)
[2016-08-06 12:00] VITALS: BP 60/41
[2016-08-06] MEDS: MAGNESIUM OXIDE 400 MG TABLET PO PRN ×3 (15:12→23:54)
[2016-08-06] MEDS: ATORVASTATIN CALCIUM 20 MG TABLET PO SCH (15:12)
[2016-08-06 15:31] VITALS: BP 112/67
[2016-08-06 19:40] VITALS: BP 104/62
[2016-08-06 21:00] VITALS: BP 128/73
[2016-08-07 00:07] VITALS: BP 111/57
[2016-08-07 06:17] VITALS: BP 141/66
[2016-08-07 07:26] VITALS: BP 144/73
[2016-08-07] MEDS: CloNIDine HCL 0.1 MG TABLET PO SCH ×3 (08:01→20:37)
[2016-08-07] MEDS: HEPARIN SODIUM,PORCINE 5,000 UNITS/ML VIAL SQ SCH ×3 (08:01→23:46)
[2016-08-07] MEDS: LISINOPRIL 20 MG TABLET PO SCH (08:01)
[2016-08-07] MEDS: ASPIRIN 81 MG EC TABLET PO SCH (08:01)
[2016-08-07] MEDS: RANOLAZINE 500 MG SR TABLET PO SCH ×2 (08:02→20:42)
[2016-08-07] MEDS: ISOSORBIDE MONONITRATE 30 MG ER TABLET PO SCH (08:02)
[2016-08-07] MEDS: ATORVASTATIN CALCIUM 20 MG TABLET PO SCH (08:02)
[2016-08-07] MEDS: LORATADINE 10 MG TABLET PO SCH (08:02)
[2016-08-07] MEDS: METOPROLOL TARTRATE 50 MG TABLET PO SCH (08:02)
[2016-08-07] MEDS: ESCITALOPRAM OXALATE 10 MG TABLET PO SCH (08:02)
[2016-08-07] MEDS: OxyCODONE HCL/ACETAMINOPHEN 5-325 MG TABLET PO PRN ×2 (08:11→20:39)
[2016-08-07 08:18] LABS: BASOPHILS % (AUTO) 0.4 % (0.0-2.0); EOSINOPHILS % (AUTO) 8.4 % (1.0-6.0); HEMOGLOBIN 11.1 g/dL (12.0-16.0); LYMPHOCYTES # (AUTO) 1.4 K/uL (1.0-4.8); LYMPHOCYTES % (AUTO) 31.8 % (22.0-44.0); MEAN CORPUSCULAR HEMOGLOBIN 31.2 pg (26.0-34.0); MEAN CORPUSCULAR HGB CONC 32.7 G/dL (31.0-37.0); MEAN CORPUSCULAR VOLUME 95 fL (80-100); MONOCYTES # (AUTO) 0.5 K/uL (0.1-1.0); MONOCYTES % (AUTO) 11.5 % (2.0-9.0); NEUTROPHILS # (AUTO) 2.2 K/uL (1.8-7.7); NEUTROPHILS % (AUTO) 47.9 % (40.0-70.0); PLATELET COUNT (AUTO) 204 K/uL (150-450); RED BLOOD CELL COUNT(AUTO) 3.57 MIL/uL (4.00-5.20); RED CELL DISTRIBUTION WIDTH 15.1 % (11.5-14.5); WHITE BLOOD COUNT (AUTO) 4.5 K/uL (4.5-11.0)
[2016-08-07 08:30] LABS: ALBUMIN 2.7 g/dL (3.4-5.0); BILIRUBIN,TOTAL 0.3 mg/dL (0.1-1.0); CALCIUM, TOTAL 8.2 mg/dL (8.8-10.5); CREATININE 1.38 mg/dL (0.60-1.30); MAGNESIUM 1.7 mg/dL (1.80-2.40); POTASSIUM 4.7 mmol/L (3.5-5.1); TOTAL PROTEIN, SERUM 6.2 g/dL (6.4-8.2)
[2016-08-07] MEDS: MAGNESIUM OXIDE 400 MG TABLET PO PRN ×3 (10:05→15:35)
[2016-08-07 12:16] VITALS: BP 141/69
[2016-08-07] MEDS ORDERED: BISACODYL 5 MG EC TABLET PO PRN (15:00)
[2016-08-07] MEDS ORDERED: MAGNESIUM HYDROXIDE SUSPENSION 30 ML UDCUP PO PRN (15:00)
[2016-08-07 15:22] VITALS: BP 131/90
[2016-08-07 19:27] VITALS: BP_SYST 132; BP_SYST 148; BP_DIAS 54; BP_DIAS 84
[2016-08-07] MEDS: QUEtiapine FUMARATE 100 MG TABLET PO SCH (20:38)
[2016-08-08 00:28] VITALS: BP 100/51
[2016-08-08 05:42] VITALS: BP 134/62
[2016-08-08 07:16] LABS: BASOPHILS % (AUTO) 0.3 % (0.0-2.0); EOSINOPHILS % (AUTO) 9.3 % (1.0-6.0); HEMATOCRIT 36.9 % (36-46); HEMOGLOBIN 11.9 g/dL (12.0-16.0); LYMPHOCYTES # (AUTO) 1.2 K/uL (1.0-4.8); LYMPHOCYTES % (AUTO) 30.9 % (22.0-44.0); MEAN CORPUSCULAR HEMOGLOBIN 30.9 pg (26.0-34.0); MEAN CORPUSCULAR HGB CONC 32.3 G/dL (31.0-37.0); MEAN CORPUSCULAR VOLUME 96 fL (80-100); MONOCYTES # (AUTO) 0.5 K/uL (0.1-1.0); MONOCYTES % (AUTO) 12.5 % (2.0-9.0); NEUTROPHILS # (AUTO) 1.9 K/uL (1.8-7.7); PLATELET COUNT (AUTO) 213 K/uL (150-450); RED BLOOD CELL COUNT(AUTO) 3.86 MIL/uL (4.00-5.20); RED CELL DISTRIBUTION WIDTH 14.8 % (11.5-14.5)
[2016-08-08 07:45] VITALS: BP 132/72
[2016-08-08 07:51] LABS: ALBUMIN 2.8 g/dL (3.4-5.0); BILIRUBIN,TOTAL 0.2 mg/dL (0.1-1.0); CALCIUM, TOTAL 8.6 mg/dL (8.8-10.5); CREATININE 1.36 mg/dL (0.60-1.30); MAGNESIUM 1.8 mg/dL (1.80-2.40); POTASSIUM 4.9 mmol/L (3.5-5.1)
[2016-08-08] MEDS: ASPIRIN 81 MG EC TABLET PO SCH (08:04)
[2016-08-08] MEDS: HEPARIN SODIUM,PORCINE 5,000 UNITS/ML VIAL SQ SCH ×2 (08:04→15:57)
[2016-08-08] MEDS: LISINOPRIL 20 MG TABLET PO SCH (08:05)
[2016-08-08] MEDS: ESCITALOPRAM OXALATE 10 MG TABLET PO SCH (08:05)
[2016-08-08] MEDS: METOPROLOL TARTRATE 50 MG TABLET PO SCH (08:05)
[2016-08-08] MEDS: RANOLAZINE 500 MG SR TABLET PO SCH (08:05)
[2016-08-08] MEDS: LORATADINE 10 MG TABLET PO SCH (08:05)
[2016-08-08] MEDS: ATORVASTATIN CALCIUM 20 MG TABLET PO SCH (08:05)
[2016-08-08] MEDS: CloNIDine HCL 0.1 MG TABLET PO SCH ×2 (08:05→15:57)
[2016-08-08] MEDS: OxyCODONE HCL/ACETAMINOPHEN 5-325 MG TABLET PO PRN (08:09)
[2016-08-08 08:11] LABS: RBC MORPHOLOGY COMMENT NORMAL RBC MORPH
[2016-08-08] MEDS ORDERED: ISOSORBIDE MONONITRATE 30 MG ER TABLET PO SCH (09:00)
[2016-08-08 11:05] VITALS: BP 99/67
[2016-08-08] MEDS ORDERED: ISOS30TA6 PO (14:28)
[2016-08-08] MEDS ORDERED: METO50 PO (14:29)
[2016-08-08] MEDS ORDERED: QUET300T2 PO (14:32)
[2016-08-08] MEDS ORDERED: RANO500T3 PO (14:33)
[2016-08-08 15:52] VITALS: BP 117/66
== END 2016-08-08 19:00 | disposition home or self-care (01) | DRG 280 ==
LOC: EMS 21:59 → 5N 08-02 18:15
PROVIDERS: ADMIT Family Medicine; ATTEND Family Medicine
DX: I21.4 Non-ST elevation (NSTEMI) myocardial infarction (principal); G93.40 Encephalopathy, unspecified; I16.1 Hypertensive emergency; F20.0 Paranoid schizophrenia; K70.30 Alcoholic cirrhosis of liver without ascites; F31.9 Bipolar disorder, unspecified; I25.10 Atherosclerotic heart disease of native coronary artery without angina pectoris; E11.22 Type 2 diabetes mellitus with diabetic chronic kidney disease; F20.9 Schizophrenia, unspecified; F17.210 Nicotine dependence, cigarettes, uncomplicated; K21.9 Gastro-esophageal reflux disease without esophagitis; E78.00 Pure hypercholesterolemia, unspecified; E78.5 Hyperlipidemia, unspecified; I25.119 Atherosclerotic heart disease of native coronary artery with unspecified angina pectoris; I12.9 Hypertensive chronic kidney disease with stage 1 through stage 4 chronic kidney disease, or unspecified chronic kidney disease; N18.9 Chronic kidney disease, unspecified; I25.2 Old myocardial infarction; Z86.73 Personal history of transient ischemic attack (TIA), and cerebral infarction without residual deficits; Z71.6 Tobacco abuse counseling; Z91.19 Patient's noncompliance with other medical treatment and regimen; Z79.82 Long term (current) use of aspirin; Z79.899 Other long term (current) drug therapy; Z90.710 Acquired absence of both cervix and uterus; Z95.5 Presence of coronary angioplasty implant and graft
CPT/HCPCS: 51702; 70450; 70551; 82962; 83036; 83735; 84100; 84443; 87081; 93005; 93306; 96365; 96366; 96374; 97161; 99291; G0480; J1644; J2060; J2405; J3490; J7060

== ENCOUNTER 2016-09-11 01:55 | Inpatient (IN) | payer MEDICARE, MEDICAID ==
[~2016-09-11] VITALS: Ht 165.1 cm; Wt 67.8 kg
[~2016-09-11 01:55] MED LIST changes: -AMLO-512 PO; +BACL10TA PO; +CLON.1 PO; +D-ME118S13 PO; +DIPH25CA48 PO; -DOXY50CA2 PO; +ESCI10TA PO; +ISOS30TA6 PO; +LISI-662 PO; +LORA10TA7 PO; -METF500T4 PO; +RANO500T3 PO; -ZOLP10 PO
[2016-09-11] MEDS ORDERED: NALOXONE HCL 1 MG/ML 2 ML SYG IVP ONE (02:00)
[2016-09-11] MEDS ORDERED: AMLO-512 PO (02:25)
[2016-09-11] MEDS ORDERED: IPRA4AER IH (02:25)
[2016-09-11] MEDS ORDERED: CLOP75 PO (02:25)
[2016-09-11] MEDS ORDERED: QUET100T PO (02:25)
[2016-09-11] MEDS ORDERED: D-ME118S13 PO (02:25)
[2016-09-11] MEDS ORDERED: DIPH50 PO (02:25)
[2016-09-11] MEDS ORDERED: METF500T4 PO (02:25)
[2016-09-11] MEDS ORDERED: CARV12 PO (02:25)
[2016-09-11 02:41] LABS: ABG BASE EXCESS -3.9 mmol/L (-2.0-3.0); ABG HCO3 21.6 mmol/L (22.0-26.0); ABG OXYHEMOGLOBIN 96.6 % (94.0-100.0); ABG PCO2 38 mmHg (35-45); ABG PH 7.369 (7.35-7.450); TEMPERATURE, FAHRENHEIT, BG 98.6 FAHREN (96.0-98.6)
[2016-09-11 02:42] LABS: ALLEN TEST, BLOOD GAS Positive
[2016-09-11 03:05] LABS: BASOPHILS % (AUTO) 0.1 % (0.0-2.0); EOSINOPHILS % (AUTO) 4.9 % (1.0-6.0); HEMATOCRIT 33.1 % (36-46); HEMOGLOBIN 10.6 g/dL (12.0-16.0); LYMPHOCYTES # (AUTO) 1.2 K/uL (1.0-4.8); MEAN CORPUSCULAR HEMOGLOBIN 30.2 pg (26.0-34.0); MEAN CORPUSCULAR HGB CONC 32.1 G/dL (31.0-37.0); MEAN CORPUSCULAR VOLUME 94 fL (80-100); MONOCYTES # (AUTO) 0.5 K/uL (0.1-1.0); MONOCYTES % (AUTO) 5.4 % (2.0-9.0); NEUTROPHILS # (AUTO) 6.3 K/uL (1.8-7.7); NEUTROPHILS % (AUTO) 75.6 % (40.0-70.0); PLATELET COUNT (AUTO) 302 K/uL (150-450); RED BLOOD CELL COUNT(AUTO) 3.52 MIL/uL (4.00-5.20); RED CELL DISTRIBUTION WIDTH 14.6 % (11.5-14.5); WHITE BLOOD COUNT (AUTO) 8.3 K/uL (4.5-11.0)
[2016-09-11 03:09] LABS: ANION GAP 10 mmol/L (8-16); CALCIUM, TOTAL 9.1 mg/dL (8.8-10.5); CARBON DIOXIDE 25 mmol/L (22-29); CHLORIDE 105 mmol/L (98-107); CREATININE 1.31 mg/dL (0.60-1.30); GLOMERULAR FILTR. RATE CALC 49 mL/min (>60); POTASSIUM 3.7 mmol/L (3.5-5.1); SODIUM SERUM 140 mmol/L (136-145); UREA NITROGEN, BLOOD 22 mg/dL (7-18)
[2016-09-11 03:14] LABS: INR 0.9 (0.9-1.1)
[2016-09-11 03:15] LABS: ALANINE AMINOTRANSFERASE 30 U/L (12-78); ASPARTATE AMINOTRANSFERASE 24 U/L (15-37); BILIRUBIN,TOTAL 0.3 mg/dL (0.1-1.0); CREATINE KINASE, TOTAL 36 U/L (26-192); TOTAL PROTEIN, SERUM 7.4 g/dL (6.4-8.2)
[2016-09-11] MEDS ORDERED: IPRATROPIUM BROMIDE 0.5 MG/2.5 ML NEB SOLUTION NEB ONE (03:15)
[2016-09-11] MEDS ORDERED: ALBUTEROL SULFATE 5 MG/ML 20 ML NEB SOLN [BULK] NEB ONE (03:15)
[2016-09-11 03:28] LABS: ADD UA MICROSCOPIC NO; APPEARANCE,URINE CLOUDY (CLEAR); GLUCOSE, URINE (UA) NEGATIVE (NEGATIVE); KETONES,URINE NEGATIVE (NEGATIVE); LEUKOCYTE ESTERASE ,URINE NEGATIVE (NEGATIVE); OCCULT BLOOD,URINE NEGATIVE (NEGATIVE); PROTEIN,URINE TRACE (NEGATIVE)
[2016-09-11] MEDS ORDERED: 0.9% SODIUM CHLORIDE 10 ML SYRINGE IVP PRN (03:30)
[2016-09-11] MEDS ORDERED: ONDANSETRON HCL 4 MG/2 ML VIAL IVP PRN (03:30)
[2016-09-11] MEDS ORDERED: ACETAMINOPHEN 325 MG TABLET PO PRN (03:30)
[2016-09-11] MEDS ORDERED: 0.9% SODIUM CHLORIDE 5 ML NEB SOLUTION NEB ONE (03:42)
[2016-09-11 03:45] LABS: B-TYPE NATRIURETIC PEPTIDE 56 pg/mL (0-100)
[2016-09-11] MEDS ORDERED: LORazepam 2 MG/ML VIAL IVP ONE (04:00)
[2016-09-11] MEDS ORDERED: LORazepam 2 MG/ML VIAL ONE (04:01)
[2016-09-11 04:07] LABS: GLUCOSE COMMENT 1 Doctor Notified; GLUCOSE,POINT OF CARE 178 MG/DL (70-110)
[2016-09-11] MEDS ORDERED: LevETIRAcetam 1,000 MG in DEXTROSE 5%-WATER 100 ML IV ONE ×2 (04:15→22:30)
[2016-09-11 05:00] VITALS: BP 140/90
[2016-09-11] MEDS: IPRATROPIUM BROMIDE 0.5 MG/2.5 ML NEB SOLUTION NEB SCH ×3 (07:34→15:00)
[2016-09-11] MEDS: ALBUTEROL SULFATE 2.5 MG/0.5 ML NEB SOLUTION NEB SCH ×3 (07:35→15:00)
[2016-09-11 08:00] VITALS: BP 122/74
[2016-09-11] MEDS ORDERED: OXYGEN THERAPY IH SCH (08:00)
[2016-09-11] MEDS: LORazepam 2 MG/ML VIAL IVP PRN ×6 (11:40→21:58)
[2016-09-11 12:00] VITALS: BP 119/88
[2016-09-11 16:00] VITALS: BP 138/85
[2016-09-11 16:43] LABS: ABG A-A DIFF O2 65.9 mmHg (10-20.0); ABG BASE EXCESS -3.4 mmol/L (-2.0-3.0); ABG OXYHEMOGLOBIN 95.7 % (94.0-100.0); ABG PCO2 38 mmHg (35-45); ABG PH 7.379 (7.35-7.450); TEMPERATURE, FAHRENHEIT, BG 98.6 FAHREN (96.0-98.6)
[2016-09-11 20:00] VITALS: BP 157/86
[2016-09-11] MEDS ORDERED: LevETIRAcetam 250 MG TABLET PO SCH (22:45)
[2016-09-12] VITALS: BP 173/94
[2016-09-12] MEDS: HydrALAZINE HCL 20 MG/ML VIAL IVP PRN ×4 (00:09→22:02)
[2016-09-12] MEDS: LORazepam 2 MG/ML VIAL IVP PRN (00:21)
[2016-09-12] MEDS ORDERED: 0.9% SODIUM CHLORIDE 10 ML SYRINGE IVP PRN (02:15)
[2016-09-12] MEDS ORDERED: BACLOFEN 10 MG TABLET PO PRN (03:15)
[2016-09-12] MEDS ORDERED: DiphenhydrAMINE HCL 50 MG CAPSULE PO PRN (03:15)
[2016-09-12 04:00] VITALS: BP 181/63
[2016-09-12] MEDS: LABETALOL HCL 5 MG/ML 20 ML VIAL IVP PRN ×3 (04:02→18:34)
[2016-09-12 05:21] LABS: BASOPHILS % (AUTO) 0.3 % (0.0-2.0); EOSINOPHILS % (AUTO) 2.6 % (1.0-6.0); HEMOGLOBIN 12.1 g/dL (12.0-16.0); LYMPHOCYTES # (AUTO) 0.8 K/uL (1.0-4.8); LYMPHOCYTES % (AUTO) 7.5 % (22.0-44.0); MEAN CORPUSCULAR HEMOGLOBIN 30.4 pg (26.0-34.0); MEAN CORPUSCULAR HGB CONC 32.6 G/dL (31.0-37.0); MEAN CORPUSCULAR VOLUME 93 fL (80-100); MONOCYTES # (AUTO) 0.6 K/uL (0.1-1.0); MONOCYTES % (AUTO) 5.7 % (2.0-9.0); NEUTROPHILS # (AUTO) 9.2 K/uL (1.8-7.7); NEUTROPHILS % (AUTO) 83.9 % (40.0-70.0); PLATELET COUNT (AUTO) 375 K/uL (150-450); RED BLOOD CELL COUNT(AUTO) 3.97 MIL/uL (4.00-5.20); RED CELL DISTRIBUTION WIDTH 14.5 % (11.5-14.5)
[2016-09-12 05:35] LABS: ANION GAP 11 mmol/L (8-16); CALCIUM, TOTAL 9.8 mg/dL (8.8-10.5); CARBON DIOXIDE 23 mmol/L (22-29); CHLORIDE 108 mmol/L (98-107); CREATININE 1.05 mg/dL (0.60-1.30); GLOMERULAR FILTR. RATE CALC > 60 mL/min (>60); PHOSPHORUS 2.9 mg/dL (2.5-4.9); SODIUM SERUM 142 mmol/L (136-145); UREA NITROGEN, BLOOD 13 mg/dL (7-18)
[2016-09-12] MEDS ORDERED: PROMETHAZINE HCL/D-METHORPHAN HB 5 ML ORAL.SYG PO PRN (06:00)
[2016-09-12 08:00] VITALS: BP 140/100
[2016-09-12] MEDS: MetFORMIN HCL 500 MG TABLET PO SCH ×2 (08:00→17:30)
[2016-09-12] MEDS ORDERED: LORazepam 2 MG/ML VIAL IVP ONE (08:45)
[2016-09-12] MEDS: ESCITALOPRAM OXALATE 10 MG TABLET PO SCH (08:50)
[2016-09-12] MEDS: CARVEDILOL 25 MG TABLET PO SCH ×2 (08:50→21:34)
[2016-09-12] MEDS: LORATADINE 10 MG TABLET PO SCH (08:50)
[2016-09-12] MEDS: METOPROLOL TARTRATE 50 MG TABLET PO SCH (08:50)
[2016-09-12] MEDS: ASPIRIN 81 MG EC TABLET PO SCH (08:50)
[2016-09-12] MEDS: CloNIDine HCL 0.2 MG TABLET PO SCH ×2 (08:50→21:35)
[2016-09-12] MEDS: CLOPIDOGREL BISULFATE 75 MG TABLET PO SCH (08:51)
[2016-09-12] MEDS: AmLODIPine BESYLATE 10 MG TABLET PO SCH (08:51)
[2016-09-12] MEDS: LISINOPRIL 20 MG TABLET PO SCH (08:51)
[2016-09-12] MEDS: QUEtiapine FUMARATE 100 MG TABLET PO SCH ×3 (08:51→18:33)
[2016-09-12] MEDS ORDERED: LevETIRAcetam 250 MG TABLET PO SCH ×2 (09:00→21:00)
[2016-09-12] MEDS ORDERED: DIAZEPAM 5 MG/ML 2 ML SYRINGE IVP PRN (09:00)
[2016-09-12] MEDS: LevETIRAcetam 750 MG in DEXTROSE 5%-WATER 100 ML IV SCH ×2 (09:54→21:34)
[2016-09-12] MEDS: ALBUTEROL SULFATE/IPRATROPIUM 100-20 MCG/SPRAY 4 GM INHALER IH SCH ×4 (09:54→21:35)
[2016-09-12 12:00] VITALS: BP 156/69
[2016-09-12] MEDS: HALOPERIDOL LACTATE 5 MG/ML VIAL IM PRN ×2 (12:09→18:34)
[2016-09-12] MEDS ORDERED: MAGNESIUM SULFATE 2 GM in DEXTROSE 5%-WATER 50 ML IV ONE (15:00)
[2016-09-12 16:00] VITALS: BP 156/84
[2016-09-12 20:00] VITALS: BP 186/114
[2016-09-12] MEDS: QUEtiapine FUMARATE 25 MG TABLET PO SCH (21:35)
[2016-09-13] VITALS: BP 115/69
[2016-09-13] MEDS: HALOPERIDOL LACTATE 5 MG/ML VIAL IM PRN ×3 (03:18→17:00)
[2016-09-13 04:00] VITALS: BP 137/74
[2016-09-13 05:55] LABS: BASOPHILS # (AUTO) 0.05 K/uL (0.00-0.20); BASOPHILS % (AUTO) 0.5 % (0.0-2.0); EOSINOPHILS # (AUTO) 0.47 K/uL (0.00-0.70); EOSINOPHILS % (AUTO) 4.73 % (1.0-6.0); HEMATOCRIT 34.2 % (36-46); HEMOGLOBIN 11.5 g/dL (12.0-16.0); LYMPHOCYTES # (AUTO) 1.1 K/uL (1.0-4.8); LYMPHOCYTES % (AUTO) 11.4 % (22.0-44.0); MEAN CORPUSCULAR HEMOGLOBIN 31.1 pg (26.0-34.0); MEAN CORPUSCULAR HGB CONC 33.5 G/dL (31.0-37.0); MEAN CORPUSCULAR VOLUME 93 fL (80-100); MONOCYTES # (AUTO) 0.6 K/uL (0.1-1.0); MONOCYTES % (AUTO) 6.4 % (2.0-9.0); NEUTROPHILS # (AUTO) 7.6 K/uL (1.8-7.7); PLATELET COUNT (AUTO) 367 K/uL (150-450); RED BLOOD CELL COUNT(AUTO) 3.68 MIL/uL (4.00-5.20); RED CELL DISTRIBUTION WIDTH 14.9 % (11.5-14.5); WHITE BLOOD COUNT (AUTO) 9.9 K/uL (4.5-11.0)
[2016-09-13 08:00] VITALS: BP 170/93
[2016-09-13] MEDS: MetFORMIN HCL 500 MG TABLET PO SCH ×3 (08:00→17:30)
[2016-09-13] MEDS ORDERED: GADOBUTROL 1 MMOL/ML 10 ML VIAL IVP ONE (08:35)
[2016-09-13] MEDS: LevETIRAcetam 750 MG in DEXTROSE 5%-WATER 100 ML IV SCH ×2 (08:41→20:46)
[2016-09-13] MEDS: CloNIDine HCL 0.2 MG TABLET PO SCH ×3 (08:42→20:46)
[2016-09-13] MEDS: QUEtiapine FUMARATE 100 MG TABLET PO SCH ×4 (08:42→20:46)
[2016-09-13] MEDS: LISINOPRIL 20 MG TABLET PO SCH ×2 (08:42→08:53)
[2016-09-13] MEDS: CLOPIDOGREL BISULFATE 75 MG TABLET PO SCH ×2 (08:42→08:53)
[2016-09-13] MEDS: ALBUTEROL SULFATE/IPRATROPIUM 100-20 MCG/SPRAY 4 GM INHALER IH SCH ×6 (08:42→22:16)
[2016-09-13] MEDS: CARVEDILOL 25 MG TABLET PO SCH ×3 (08:42→20:46)
[2016-09-13] MEDS: METOPROLOL TARTRATE 50 MG TABLET PO SCH ×2 (08:42→08:52)
[2016-09-13] MEDS: LORATADINE 10 MG TABLET PO SCH ×2 (08:43→08:52)
[2016-09-13] MEDS: AmLODIPine BESYLATE 10 MG TABLET PO SCH ×2 (08:43→08:53)
[2016-09-13] MEDS: ASPIRIN 81 MG EC TABLET PO SCH ×2 (08:43→08:52)
[2016-09-13] MEDS: ESCITALOPRAM OXALATE 10 MG TABLET PO SCH ×2 (08:43→08:52)
[2016-09-13] MEDS: LABETALOL HCL 5 MG/ML 20 ML VIAL IVP PRN ×3 (08:57→13:44)
[2016-09-13] MEDS ORDERED: DEXTROSE 50%-WATER 25 GM/50 ML SYRINGE IVP PRN (11:30)
[2016-09-13] MEDS ORDERED: CARV25 PO (11:36)
[2016-09-13] MEDS ORDERED: QUET25TA PO (11:36)
[2016-09-13] MEDS ORDERED: CLON.2 PO (11:36)
[2016-09-13 12:00] VITALS: BP 145/80
[2016-09-13 14:45] LABS: ABG A-A DIFF O2 44.8 mmHg (10-20.0); ABG BASE EXCESS -5.8 mmol/L (-2.0-3.0); ABG HCO3 20.8 mmol/L (22.0-26.0); ABG OXYHEMOGLOBIN 93.9 % (94.0-100.0); ABG PCO2 26 mmHg (35-45); ABG PH 7.461 (7.35-7.450); ALLEN TEST, BLOOD GAS Positive; TEMPERATURE, FAHRENHEIT, BG 98.1 FAHREN (96.0-98.6)
[2016-09-13 16:00] VITALS: BP 148/81
[2016-09-13 20:00] VITALS: BP 168/95
[2016-09-13 20:52] LABS: GLUCOSE,POINT OF CARE 154 MG/DL (70-110)
[2016-09-13] MEDS: QUEtiapine FUMARATE 25 MG TABLET PO SCH (21:00)
[2016-09-14] VITALS (7 sets, daily range): BP systolic 90–120; BP diastolic 44–73
[2016-09-14] MEDS: HALOPERIDOL LACTATE 5 MG/ML VIAL IM PRN (00:26)
[2016-09-14] MEDS ORDERED: SODIUM CHLORIDE 0.9% 250 ML IV ONE ×2 (03:56→10:33)
[2016-09-14 04:42] LABS: GLUCOSE,POINT OF CARE 141 MG/DL (70-110)
[2016-09-14] MEDS: MetFORMIN HCL 500 MG TABLET PO SCH ×2 (08:00→17:20)
[2016-09-14 08:12] LABS: GLUCOSE,POINT OF CARE 113 MG/DL (70-110)
[2016-09-14] MEDS: LevETIRAcetam 750 MG in DEXTROSE 5%-WATER 100 ML IV SCH ×2 (08:29→21:38)
[2016-09-14] MEDS: CLOPIDOGREL BISULFATE 75 MG TABLET PO SCH (08:29)
[2016-09-14] MEDS: METOPROLOL TARTRATE 50 MG TABLET PO SCH ×2 (08:30→09:00)
[2016-09-14] MEDS: LISINOPRIL 20 MG TABLET PO SCH (08:30)
[2016-09-14] MEDS: CloNIDine HCL 0.2 MG TABLET PO SCH ×3 (08:30→21:00)
[2016-09-14] MEDS: CARVEDILOL 25 MG TABLET PO SCH ×3 (08:30→21:00)
[2016-09-14] MEDS: QUEtiapine FUMARATE 100 MG TABLET PO SCH ×2 (08:30→21:42)
[2016-09-14] MEDS: LORATADINE 10 MG TABLET PO SCH (08:30)
[2016-09-14] MEDS: ALBUTEROL SULFATE/IPRATROPIUM 100-20 MCG/SPRAY 4 GM INHALER IH SCH ×4 (08:31→21:37)
[2016-09-14] MEDS: AmLODIPine BESYLATE 10 MG TABLET PO SCH (08:31)
[2016-09-14] MEDS: ASPIRIN 81 MG EC TABLET PO SCH (08:31)
[2016-09-14] MEDS: ESCITALOPRAM OXALATE 10 MG TABLET PO SCH (08:36)
[2016-09-14 17:17] LABS: GLUCOSE,POINT OF CARE 142 MG/DL (70-110)
[2016-09-14] MEDS ORDERED: SODIUM CHLORIDE 0.9% 100 ML ONE (21:25)
[2016-09-14 22:57] LABS: GLUCOSE,POINT OF CARE 129 MG/DL (70-110)
[2016-09-15] VITALS (7 sets, daily range): BP systolic 92–134; BP diastolic 51–80
[2016-09-15] MEDS: AmLODIPine BESYLATE 10 MG TABLET PO SCH (09:00)
[2016-09-15] MEDS: METOPROLOL TARTRATE 50 MG TABLET PO SCH (09:00)
[2016-09-15] MEDS: MetFORMIN HCL 500 MG TABLET PO SCH ×2 (09:08→18:03)
[2016-09-15] MEDS: ALBUTEROL SULFATE/IPRATROPIUM 100-20 MCG/SPRAY 4 GM INHALER IH SCH ×4 (09:09→20:40)
[2016-09-15] MEDS: CloNIDine HCL 0.2 MG TABLET PO SCH ×2 (09:09→21:00)
[2016-09-15] MEDS: LORATADINE 10 MG TABLET PO SCH (09:10)
[2016-09-15] MEDS: CARVEDILOL 25 MG TABLET PO SCH ×2 (09:10→21:00)
[2016-09-15] MEDS: ESCITALOPRAM OXALATE 10 MG TABLET PO SCH (09:11)
[2016-09-15] MEDS: ASPIRIN 81 MG EC TABLET PO SCH (09:11)
[2016-09-15] MEDS: QUEtiapine FUMARATE 100 MG TABLET PO SCH ×2 (09:12→23:32)
[2016-09-15] MEDS: LISINOPRIL 20 MG TABLET PO SCH (09:12)
[2016-09-15] MEDS: CLOPIDOGREL BISULFATE 75 MG TABLET PO SCH (09:12)
[2016-09-15] MEDS: LevETIRAcetam 750 MG in DEXTROSE 5%-WATER 100 ML IV SCH ×2 (10:23→20:40)
[2016-09-15] MEDS: INSULIN ASPART 100 UNITS/ML SQ PRN ×2 (12:26→20:54)
[2016-09-16 04:18] VITALS: BP 113/51
[2016-09-16] MEDS: INSULIN ASPART 100 UNITS/ML SQ PRN ×3 (06:14→20:19)
[2016-09-16 07:25] LABS: ALBUMIN 2.7 g/dL (3.4-5.0); BILIRUBIN,TOTAL 0.3 mg/dL (0.1-1.0); CALCIUM, TOTAL 9.2 mg/dL (8.8-10.5); CREATININE 1.43 mg/dL (0.60-1.30); MAGNESIUM 1.6 mg/dL (1.80-2.40); POTASSIUM 3.9 mmol/L (3.5-5.1); TOTAL PROTEIN, SERUM 6.7 g/dL (6.4-8.2)
[2016-09-16] MEDS: LORATADINE 10 MG TABLET PO SCH (07:35)
[2016-09-16] MEDS: ALBUTEROL SULFATE/IPRATROPIUM 100-20 MCG/SPRAY 4 GM INHALER IH SCH ×3 (07:35→16:14)
[2016-09-16] MEDS: ESCITALOPRAM OXALATE 10 MG TABLET PO SCH (07:35)
[2016-09-16] MEDS: CLOPIDOGREL BISULFATE 75 MG TABLET PO SCH (07:35)
[2016-09-16] MEDS: LevETIRAcetam 750 MG in DEXTROSE 5%-WATER 100 ML IV SCH ×2 (07:35→21:04)
[2016-09-16] MEDS: MetFORMIN HCL 500 MG TABLET PO SCH ×2 (07:35→17:16)
[2016-09-16] MEDS: QUEtiapine FUMARATE 100 MG TABLET PO SCH (07:35)
[2016-09-16] MEDS: ASPIRIN 81 MG EC TABLET PO SCH (07:35)
[2016-09-16] MEDS: METOPROLOL TARTRATE 50 MG TABLET PO SCH (07:43)
[2016-09-16] MEDS: AmLODIPine BESYLATE 10 MG TABLET PO SCH (07:43)
[2016-09-16 07:45] LABS: BASOPHILS % (AUTO) 0.3 % (0.0-2.0); EOSINOPHILS % (AUTO) 6.2 % (1.0-6.0); HEMATOCRIT 31.8 % (36-46); HEMOGLOBIN 10.5 g/dL (12.0-16.0); LYMPHOCYTES # (AUTO) 1.9 K/uL (1.0-4.8); LYMPHOCYTES % (AUTO) 20.8 % (22.0-44.0); MEAN CORPUSCULAR HEMOGLOBIN 30.9 pg (26.0-34.0); MEAN CORPUSCULAR VOLUME 94 fL (80-100); MONOCYTES # (AUTO) 0.9 K/uL (0.1-1.0); MONOCYTES % (AUTO) 10.3 % (2.0-9.0); NEUTROPHILS # (AUTO) 5.6 K/uL (1.8-7.7); NEUTROPHILS % (AUTO) 62.4 % (40.0-70.0); PLATELET COUNT (AUTO) 389 K/uL (150-450); RED CELL DISTRIBUTION WIDTH 14.5 % (11.5-14.5); WHITE BLOOD COUNT (AUTO) 8.9 K/uL (4.5-11.0)
[2016-09-16 08:01] VITALS: BP_SYST 126; BP_DIAS 6; BP_DIAS 69
[2016-09-16 08:58] VITALS: BP 102/60
[2016-09-16] MEDS: CloNIDine HCL 0.2 MG TABLET PO SCH ×2 (09:00→20:20)
[2016-09-16] MEDS: CARVEDILOL 25 MG TABLET PO SCH ×2 (09:00→20:21)
[2016-09-16] MEDS: LISINOPRIL 20 MG TABLET PO SCH (09:00)
[2016-09-16 10:04] VITALS: BP 125/52
[2016-09-16] MEDS ORDERED: MAGNESIUM SULFATE 2 GM in DEXTROSE 5%-WATER 50 ML IV ONE (15:00)
[2016-09-16] MEDS: SODIUM CHLORIDE 0.45% 1,000 ML IV SCH (16:12)
[2016-09-16 16:15] VITALS: BP 100/56
[2016-09-16 19:52] VITALS: BP 141/84
[2016-09-17] VITALS (7 sets, daily range): BP systolic 108–142; BP diastolic 56–76
[2016-09-17] MEDS: ALBUTEROL SULFATE/IPRATROPIUM 100-20 MCG/SPRAY 4 GM INHALER IH SCH ×4 (00:15→18:56)
[2016-09-17] MEDS: MetFORMIN HCL 500 MG TABLET PO SCH ×2 (08:58→18:55)
[2016-09-17] MEDS: LevETIRAcetam 750 MG in DEXTROSE 5%-WATER 100 ML IV SCH (08:59)
[2016-09-17] MEDS: ASPIRIN 81 MG EC TABLET PO SCH (09:00)
[2016-09-17] MEDS: CARVEDILOL 25 MG TABLET PO SCH (09:00)
[2016-09-17] MEDS: METOPROLOL TARTRATE 50 MG TABLET PO SCH (09:00)
[2016-09-17] MEDS: CloNIDine HCL 0.2 MG TABLET PO SCH (09:00)
[2016-09-17] MEDS: AmLODIPine BESYLATE 10 MG TABLET PO SCH (09:00)
[2016-09-17] MEDS: CLOPIDOGREL BISULFATE 75 MG TABLET PO SCH (09:01)
[2016-09-17] MEDS: LORATADINE 10 MG TABLET PO SCH (09:01)
[2016-09-17] MEDS: ESCITALOPRAM OXALATE 10 MG TABLET PO SCH (09:02)
[2016-09-17] MEDS: SODIUM CHLORIDE 0.45% 1,000 ML IV SCH (09:07)
[2016-09-17] MEDS: LISINOPRIL 20 MG TABLET PO SCH (11:31)
[2016-09-17] MEDS: INSULIN ASPART 100 UNITS/ML SQ PRN (12:23)
[2016-09-26 06:29] LABS: GLUCOSE,POINT OF CARE 128 MG/DL (70-110)
[2016-09-26 06:30] LABS: GLUCOSE,POINT OF CARE 119 MG/DL (70-110)
[2016-09-26 06:30] LABS: GLUCOSE COMMENT 1 Received Meds; GLUCOSE,POINT OF CARE 161 MG/DL (70-110)
[2016-09-26 06:30] LABS: GLUCOSE,POINT OF CARE 162 MG/DL (70-110)
[2016-09-26 06:30] LABS: GLUCOSE,POINT OF CARE 149 MG/DL (70-110)
[2016-09-26 06:30] LABS: GLUCOSE,POINT OF CARE 95 MG/DL (70-110)
[2016-09-26 06:30] LABS: GLUCOSE COMMENT 1 Received Meds; GLUCOSE,POINT OF CARE 169 MG/DL (70-110)
== END 2016-09-17 19:40 | DRG 64 ==
LOC: EMS 01:57 → ICU 03:35 → 5S 03:35 → UNDOADMIN 03:35 → 5S 09-14 18:57
PROVIDERS: ADMIT Family Medicine; ATTEND Family Medicine
DX: I63.9 Cerebral infarction, unspecified (principal); G93.40 Encephalopathy, unspecified; J98.11 Atelectasis; F20.0 Paranoid schizophrenia; G40.909 Epilepsy, unspecified, not intractable, without status epilepticus; F31.9 Bipolar disorder, unspecified; I25.10 Atherosclerotic heart disease of native coronary artery without angina pectoris; F11.90 Opioid use, unspecified, uncomplicated; I10 Essential (primary) hypertension; E78.5 Hyperlipidemia, unspecified; K21.9 Gastro-esophageal reflux disease without esophagitis; K74.60 Unspecified cirrhosis of liver; F17.210 Nicotine dependence, cigarettes, uncomplicated; F19.10 Other psychoactive substance abuse, uncomplicated; K73.9 Chronic hepatitis, unspecified; G40.409 Other generalized epilepsy and epileptic syndromes, not intractable, without status epilepticus; E11.9 Type 2 diabetes mellitus without complications; Z79.899 Other long term (current) drug therapy; Z90.710 Acquired absence of both cervix and uterus; Z86.73 Personal history of transient ischemic attack (TIA), and cerebral infarction without residual deficits; Z95.1 Presence of aortocoronary bypass graft; Z79.02 Long term (current) use of antithrombotics/antiplatelets; Z79.84 Long term (current) use of oral hypoglycemic drugs; Z78.1 Physical restraint status; Z79.82 Long term (current) use of aspirin
CPT/HCPCS: 51702; 71020; 80307; 82805; 82962; 83605; 83735; 84100; 87040; 87081; 92526; 92610; 93005; 94640; 95816; 96374; 96375; 97116; 97163; 97165; 97530; 99291; A9585; G0480; J0360; J0712; J1630; J2060; J2310; J3475; J3490; J7050; J7060

== ENCOUNTER 2016-12-03 10:27 | Inpatient (IN) | payer MEDICARE, MEDICAID ==
[~2016-12-03] VITALS: Ht 162.6 cm; Wt 71.2 kg
[~2016-12-03 10:27] MED LIST changes: +AMLO-512 PO; +CARV25 PO; -CLON.1 PO; +CLON.2 PO; +CLOP75 PO; -DIPH25CA48 PO; +DIPH50 PO; +IPRA4AER IH; -ISOS30TA6 PO; +METF500T4 PO; +QUET100T PO; +QUET25TA PO; -QUET300T2 PO; -RANO500T3 PO; -SIMV20TA6 PO
[2016-12-03] MEDS ORDERED: CHL25 PO (10:46)
[2016-12-03] MEDS ORDERED: DULO60CA44 PO (10:46)
[2016-12-03] MEDS ORDERED: SIMV-260 PO (10:46)
[2016-12-03] MEDS ORDERED: ISOS30TA6 PO (10:46)
[2016-12-03] MEDS ORDERED: DIPH12.55 PO (10:46)
[2016-12-03] MEDS ORDERED: GABA-529 PO (10:46)
[2016-12-03] MEDS ORDERED: SODIUM CHLORIDE 0.9% 1,000 ML IV ONE (11:15)
[2016-12-03 11:59] LABS: BASOPHILS % (AUTO) 0.3 % (0.0-2.0); EOSINOPHILS % (AUTO) 3.7 % (1.0-6.0); HEMATOCRIT 28.8 % (36-46); HEMOGLOBIN 9.8 g/dL (12.0-16.0); LYMPHOCYTES # (AUTO) 1.1 K/uL (1.0-4.8); LYMPHOCYTES % (AUTO) 25.2 % (22.0-44.0); MEAN CORPUSCULAR HEMOGLOBIN 32.2 pg (26.0-34.0); MEAN CORPUSCULAR HGB CONC 34.1 G/dL (31.0-37.0); MEAN CORPUSCULAR VOLUME 95 fL (80-100); MONOCYTES # (AUTO) 0.3 K/uL (0.1-1.0); MONOCYTES % (AUTO) 7.7 % (2.0-9.0); NEUTROPHILS # (AUTO) 2.9 K/uL (1.8-7.7); NEUTROPHILS % (AUTO) 63.1 % (40.0-70.0); PLATELET COUNT (AUTO) 259 K/uL (150-450); RED BLOOD CELL COUNT(AUTO) 3.04 MIL/uL (4.00-5.20); RED CELL DISTRIBUTION WIDTH 16.1 % (11.5-14.5); WHITE BLOOD COUNT (AUTO) 4.5 K/uL (4.5-11.0)
[2016-12-03 12:22] LABS: LACTIC ACID 1.3 mmol/L (0.4-2.0)
[2016-12-03 12:45] LABS: CALCIUM, TOTAL 9.3 mg/dL (8.8-10.5); CREATININE 1.58 mg/dL (0.60-1.30); POTASSIUM 4.7 mmol/L (3.5-5.1)
[2016-12-03 12:49] LABS: ALBUMIN 3.3 g/dL (3.4-5.0); BILIRUBIN,TOTAL 0.4 mg/dL (0.1-1.0); TOTAL PROTEIN, SERUM 6.8 g/dL (6.4-8.2)
[2016-12-03] MEDS ORDERED: ACETAMINOPHEN 325 MG TABLET PO PRN (13:00)
[2016-12-03] MEDS ORDERED: ASPIRIN 81 MG CHEWABLE TABLET PO ONE (13:00)
[2016-12-03] MEDS ORDERED: ONDANSETRON HCL 4 MG/2 ML VIAL IVP PRN (13:00)
[2016-12-03] MEDS ORDERED: 0.9% SODIUM CHLORIDE 10 ML SYRINGE IVP PRN (13:00)
[2016-12-03 14:33] LABS: GLUCOSE,POINT OF CARE 181 MG/DL (70-110)
[2016-12-03 15:14] VITALS: BP 106/59
[2016-12-03] MEDS ORDERED: BACLOFEN 10 MG TABLET PO PRN (16:00)
[2016-12-03] MEDS ORDERED: DEXTROSE 50%-WATER 25 GM/50 ML SYRINGE IVP PRN (16:00)
[2016-12-03] MEDS ORDERED: DiphenhydrAMINE HCL 50 MG CAPSULE PO PRN (16:00)
[2016-12-03] MEDS: ALBUTEROL SULFATE/IPRATROPIUM 100-20 MCG/SPRAY 4 GM INHALER IH SCH ×2 (17:09→20:58)
[2016-12-03] MEDS: DiphenhydrAMINE HCL 50 MG CAPSULE PO SCH ×2 (17:10→20:57)
[2016-12-03] MEDS: GABAPENTIN 100 MG CAPSULE PO SCH ×2 (17:10→20:57)
[2016-12-03] MEDS: MetFORMIN HCL 500 MG TABLET PO SCH (17:10)
[2016-12-03] MEDS: INSULIN ASPART 100 UNITS/ML SQ PRN (17:34)
[2016-12-03 19:13] VITALS: BP 105/71
[2016-12-03] MEDS: CARVEDILOL 25 MG TABLET PO SCH (20:57)
[2016-12-03] MEDS: QUEtiapine FUMARATE 25 MG TABLET PO SCH (20:57)
[2016-12-03] MEDS ORDERED: DiphenhydrAMINE HCL 50 MG CAPSULE PO SCH (21:00)
[2016-12-03 23:32] VITALS: BP 119/64
[2016-12-04] MEDS: HEPARIN SODIUM,PORCINE 5,000 UNITS/ML VIAL SQ SCH ×3 (00:43→16:00)
[2016-12-04 04:36] VITALS: BP 119/61
[2016-12-04 06:16] LABS: BASOPHILS % (AUTO) 0.6 % (0.0-2.0); EOSINOPHILS % (AUTO) 5.5 % (1.0-6.0); HEMATOCRIT 27.5 % (36-46); HEMOGLOBIN 9.3 g/dL (12.0-16.0); LYMPHOCYTES # (AUTO) 1.4 K/uL (1.0-4.8); MEAN CORPUSCULAR HEMOGLOBIN 32.4 pg (26.0-34.0); MEAN CORPUSCULAR HGB CONC 33.9 G/dL (31.0-37.0); MEAN CORPUSCULAR VOLUME 95 fL (80-100); MONOCYTES # (AUTO) 0.4 K/uL (0.1-1.0); MONOCYTES % (AUTO) 9.2 % (2.0-9.0); NEUTROPHILS # (AUTO) 2.1 K/uL (1.8-7.7); NEUTROPHILS % (AUTO) 51.7 % (40.0-70.0); PLATELET COUNT (AUTO) 234 K/uL (150-450); RED BLOOD CELL COUNT(AUTO) 2.88 MIL/uL (4.00-5.20); RED CELL DISTRIBUTION WIDTH 16.1 % (11.5-14.5); WHITE BLOOD COUNT (AUTO) 4.1 K/uL (4.5-11.0)
[2016-12-04 06:31] LABS: ALBUMIN 2.9 g/dL (3.4-5.0); BILIRUBIN,TOTAL 0.2 mg/dL (0.1-1.0); CALCIUM, TOTAL 8.8 mg/dL (8.8-10.5); CREATININE 1.41 mg/dL (0.60-1.30); MAGNESIUM 1.6 mg/dL (1.80-2.40); POTASSIUM 4.3 mmol/L (3.5-5.1); TOTAL PROTEIN, SERUM 6.2 g/dL (6.4-8.2)
[2016-12-04 07:11] VITALS: BP 112/58
[2016-12-04] MEDS: GABAPENTIN 100 MG CAPSULE PO SCH ×3 (07:57→20:44)
[2016-12-04] MEDS: DULoxetine HCL 60 MG CAPSULE PO SCH (07:57)
[2016-12-04] MEDS: ESCITALOPRAM OXALATE 10 MG TABLET PO SCH (07:58)
[2016-12-04] MEDS: MetFORMIN HCL 500 MG TABLET PO SCH ×2 (07:58→17:44)
[2016-12-04] MEDS: ASPIRIN 81 MG EC TABLET PO SCH (07:58)
[2016-12-04] MEDS: CLOPIDOGREL BISULFATE 75 MG TABLET PO SCH (07:58)
[2016-12-04] MEDS: DiphenhydrAMINE HCL 50 MG CAPSULE PO SCH ×3 (08:00→20:42)
[2016-12-04] MEDS: ALBUTEROL SULFATE/IPRATROPIUM 100-20 MCG/SPRAY 4 GM INHALER IH SCH ×4 (08:00→20:47)
[2016-12-04] MEDS ORDERED: LORATADINE 10 MG TABLET PO SCH ×2 (09:00)
[2016-12-04 11:34] VITALS: BP 110/53
[2016-12-04] MEDS: SIMVASTATIN 20 MG TABLET PO SCH (11:47)
[2016-12-04] MEDS: CARVEDILOL 25 MG TABLET PO SCH ×2 (11:47→20:44)
[2016-12-04] MEDS ORDERED: SODIUM CHLORIDE 0.9% 100 ML ONE (11:59)
[2016-12-04] MEDS ORDERED: MAGNESIUM SULFATE 2 GM in DEXTROSE 5%-WATER 50 ML IV ONE (12:00)
[2016-12-04 14:44] VITALS: BP_SYST 138; BP_DIAS 68; BP_DIAS 78
[2016-12-04] MEDS: ISOSORBIDE MONONITRATE 30 MG ER TABLET PO SCH (14:47)
[2016-12-04] MEDS: CHLORTHALIDONE 25 MG TABLET PO SCH (14:47)
[2016-12-04] MEDS: AmLODIPine BESYLATE 10 MG TABLET PO SCH (14:47)
[2016-12-04 15:30] VITALS: BP 132/72
[2016-12-04] MEDS: LISINOPRIL 20 MG TABLET PO SCH (15:36)
[2016-12-04 19:48] VITALS: BP 127/69
[2016-12-04] MEDS: QUEtiapine FUMARATE 25 MG TABLET PO SCH (20:43)
[2016-12-04] MEDS ORDERED: ACETAMINOPHEN 325 MG TABLET PO PRN (21:45)
[2016-12-05] MEDS: HEPARIN SODIUM,PORCINE 5,000 UNITS/ML VIAL SQ SCH ×4 (00:31→23:37)
[2016-12-05 06:37] LABS: BILIRUBIN,TOTAL 0.2 mg/dL (0.1-1.0); CALCIUM, TOTAL 8.8 mg/dL (8.8-10.5); CREATININE 1.32 mg/dL (0.60-1.30); MAGNESIUM 1.6 mg/dL (1.80-2.40); POTASSIUM 4.4 mmol/L (3.5-5.1); TOTAL PROTEIN, SERUM 6.5 g/dL (6.4-8.2)
[2016-12-05 06:38] LABS: BASOPHILS % (AUTO) 0.7 % (0.0-2.0); EOSINOPHILS % (AUTO) 6.2 % (1.0-6.0); HEMATOCRIT 28.7 % (36-46); HEMOGLOBIN 9.8 g/dL (12.0-16.0); LYMPHOCYTES # (AUTO) 1.6 K/uL (1.0-4.8); LYMPHOCYTES % (AUTO) 38.9 % (22.0-44.0); MEAN CORPUSCULAR HEMOGLOBIN 32.4 pg (26.0-34.0); MEAN CORPUSCULAR HGB CONC 34.3 G/dL (31.0-37.0); MEAN CORPUSCULAR VOLUME 94 fL (80-100); MONOCYTES # (AUTO) 0.4 K/uL (0.1-1.0); MONOCYTES % (AUTO) 9.1 % (2.0-9.0); NEUTROPHILS # (AUTO) 1.8 K/uL (1.8-7.7); NEUTROPHILS % (AUTO) 45.1 % (40.0-70.0); PLATELET COUNT (AUTO) 242 K/uL (150-450); RED BLOOD CELL COUNT(AUTO) 3.04 MIL/uL (4.00-5.20); RED CELL DISTRIBUTION WIDTH 15.5 % (11.5-14.5); WHITE BLOOD COUNT (AUTO) 4.1 K/uL (4.5-11.0)
[2016-12-05 07:12] VITALS: BP 142/80
[2016-12-05 07:43] VITALS: BP 134/71
[2016-12-05] MEDS: MetFORMIN HCL 500 MG TABLET PO SCH ×2 (09:34→17:47)
[2016-12-05] MEDS: ALBUTEROL SULFATE/IPRATROPIUM 100-20 MCG/SPRAY 4 GM INHALER IH SCH ×4 (09:35→20:30)
[2016-12-05] MEDS: AmLODIPine BESYLATE 10 MG TABLET PO SCH (09:35)
[2016-12-05] MEDS: SIMVASTATIN 20 MG TABLET PO SCH (09:35)
[2016-12-05] MEDS: CLOPIDOGREL BISULFATE 75 MG TABLET PO SCH (09:36)
[2016-12-05] MEDS: ASPIRIN 81 MG EC TABLET PO SCH (09:36)
[2016-12-05] MEDS: DiphenhydrAMINE HCL 50 MG CAPSULE PO SCH ×3 (09:36→20:30)
[2016-12-05] MEDS: ISOSORBIDE MONONITRATE 30 MG ER TABLET PO SCH (09:36)
[2016-12-05] MEDS: LISINOPRIL 20 MG TABLET PO SCH (09:36)
[2016-12-05] MEDS: GABAPENTIN 100 MG CAPSULE PO SCH ×3 (09:37→20:30)
[2016-12-05] MEDS: CARVEDILOL 25 MG TABLET PO SCH ×2 (09:37→23:37)
[2016-12-05] MEDS: DULoxetine HCL 60 MG CAPSULE PO SCH (09:38)
[2016-12-05] MEDS: CHLORTHALIDONE 25 MG TABLET PO SCH (09:38)
[2016-12-05] MEDS: ESCITALOPRAM OXALATE 10 MG TABLET PO SCH (09:38)
[2016-12-05 11:38] VITALS: BP 126/61
[2016-12-05] MEDS: INSULIN ASPART 100 UNITS/ML SQ PRN (12:33)
[2016-12-05] MEDS ORDERED: MAGNESIUM SULFATE 2 GM in DEXTROSE 5%-WATER 50 ML IV ONE (14:00)
[2016-12-05 14:46] LABS: APPEARANCE,URINE CLEAR (CLEAR); GLUCOSE, URINE (UA) NEGATIVE (NEGATIVE); KETONES,URINE NEGATIVE (NEGATIVE); LEUKOCYTE ESTERASE ,URINE NEGATIVE (NEGATIVE); OCCULT BLOOD,URINE NEGATIVE (NEGATIVE); PROTEIN,URINE NEGATIVE (NEGATIVE)
[2016-12-05 14:54] LABS: RBC,URINE None Seen /HPF (0-2); SQUAMOUS EPITHELIAL CELL,UR Few /LPF (None Seen)
[2016-12-05 16:09] VITALS: BP 133/74
[2016-12-05 16:57] LABS: GLUCOSE,POINT OF CARE 127 MG/DL (70-110)
[2016-12-05 20:22] VITALS: BP 118/68
[2016-12-05] MEDS: QUEtiapine FUMARATE 25 MG TABLET PO SCH (20:30)
[2016-12-05 20:42] LABS: GLUCOSE,POINT OF CARE 95 MG/DL (70-110)
[2016-12-05 21:02] LABS: GLUCOSE,POINT OF CARE 119 MG/DL (70-110)
[2016-12-05 23:18] VITALS: BP 120/53
[2016-12-05 23:37] LABS: GLUCOSE,POINT OF CARE 117 MG/DL (70-110)
[2016-12-06 04:28] VITALS: BP 106/66
[2016-12-06 07:07] LABS: GLUCOSE,POINT OF CARE 89 MG/DL (70-110)
[2016-12-06 07:30] VITALS: BP 118/62
[2016-12-06] MEDS: ASPIRIN 81 MG EC TABLET PO SCH (09:07)
[2016-12-06] MEDS: ESCITALOPRAM OXALATE 10 MG TABLET PO SCH (09:07)
[2016-12-06] MEDS: GABAPENTIN 100 MG CAPSULE PO SCH (09:07)
[2016-12-06] MEDS: ALBUTEROL SULFATE/IPRATROPIUM 100-20 MCG/SPRAY 4 GM INHALER IH SCH (09:07)
[2016-12-06] MEDS: DULoxetine HCL 60 MG CAPSULE PO SCH (09:07)
[2016-12-06] MEDS: DiphenhydrAMINE HCL 50 MG CAPSULE PO SCH (09:07)
[2016-12-06] MEDS: CLOPIDOGREL BISULFATE 75 MG TABLET PO SCH (09:08)
[2016-12-06] MEDS: LISINOPRIL 20 MG TABLET PO SCH (09:08)
[2016-12-06] MEDS: ISOSORBIDE MONONITRATE 30 MG ER TABLET PO SCH (09:08)
[2016-12-06] MEDS: CARVEDILOL 25 MG TABLET PO SCH (09:08)
[2016-12-06] MEDS: SIMVASTATIN 20 MG TABLET PO SCH (09:08)
[2016-12-06] MEDS: AmLODIPine BESYLATE 10 MG TABLET PO SCH (09:08)
[2016-12-06] MEDS: HEPARIN SODIUM,PORCINE 5,000 UNITS/ML VIAL SQ SCH (09:08)
[2016-12-06] MEDS: MetFORMIN HCL 500 MG TABLET PO SCH (09:08)
[2016-12-06] MEDS: CHLORTHALIDONE 25 MG TABLET PO SCH (09:08)
[2016-12-06 11:38] LABS: GLUCOSE,POINT OF CARE 94 MG/DL (70-110)
[2016-12-06 12:00] VITALS: BP 115/68
[2016-12-07 08:28] LABS: GLUCOSE,POINT OF CARE 109 MG/DL (70-110)
[2016-12-07 08:28] LABS: GLUCOSE COMMENT 1 Received Meds; GLUCOSE,POINT OF CARE 172 MG/DL (70-110)
[2016-12-07 08:28] LABS: GLUCOSE,POINT OF CARE 120 MG/DL (70-110)
[2016-12-07 08:28] LABS: GLUCOSE,POINT OF CARE 98 MG/DL (70-110)
[2016-12-07 08:28] LABS: GLUCOSE,POINT OF CARE 136 MG/DL (70-110)
[2016-12-07 08:28] LABS: GLUCOSE,POINT OF CARE 121 MG/DL (70-110)
[2016-12-07 17:32] LABS: GLUCOSE COMMENT 1 Received Meds; GLUCOSE,POINT OF CARE 125 MG/DL (70-110)
== END 2016-12-06 14:35 | disposition home or self-care (01) | DRG 74 ==
LOC: EMS 10:29 → 5S 13:34 → 6N 12-05 15:45
PROVIDERS: ADMIT Family Medicine; ATTEND Family Medicine
DX: G90.8 Other disorders of autonomic nervous system (principal); R55 Syncope and collapse; N18.3 Chronic kidney disease, stage 3 (moderate); F20.9 Schizophrenia, unspecified; J44.9 Chronic obstructive pulmonary disease, unspecified; E11.22 Type 2 diabetes mellitus with diabetic chronic kidney disease; E78.00 Pure hypercholesterolemia, unspecified; E78.5 Hyperlipidemia, unspecified; F17.210 Nicotine dependence, cigarettes, uncomplicated; G89.29 Other chronic pain; I12.9 Hypertensive chronic kidney disease with stage 1 through stage 4 chronic kidney disease, or unspecified chronic kidney disease; I25.10 Atherosclerotic heart disease of native coronary artery without angina pectoris; K21.9 Gastro-esophageal reflux disease without esophagitis; Z95.1 Presence of aortocoronary bypass graft; Z87.898 Personal history of other specified conditions
CPT/HCPCS: 80307; 82948; 82962; 83605; 83735; 93005; 96361; 96374; 97161; 97165; 99285; J1644; J2405; J3475; J7050; J7060

== ENCOUNTER 2017-02-02 14:37 | Emergency (ER) | payer MEDICAID, MEDICARE ==
[~2017-02-02] VITALS: Ht 162.6 cm; Wt 68.0 kg
[~2017-02-02 14:37] MED LIST changes: -ASPI-1093 PO; +CHL25 PO; +DIPH12.55 PO; +DULO60CA44 PO; +GABA-529 PO; +ISOS30TA6 PO; -LORA10TA7 PO; +SIMV-260 PO
[2017-02-02 14:52] LABS: GLUCOSE,POINT OF CARE 129 MG/DL (70-110)
[2017-02-02 16:39] LABS: BASOPHILS % (AUTO) 1.4 % (0.0-2.0); EOSINOPHILS % (AUTO) 6.8 % (1.0-6.0); HEMATOCRIT 41.5 % (36-46); HEMOGLOBIN 13.9 g/dL (12.0-16.0); LYMPHOCYTES # (AUTO) 1.6 K/uL (1.0-4.8); MEAN CORPUSCULAR HEMOGLOBIN 30.2 pg (26.0-34.0); MEAN CORPUSCULAR HGB CONC 33.5 G/dL (31.0-37.0); MEAN CORPUSCULAR VOLUME 90 fL (80-100); MONOCYTES # (AUTO) 0.3 K/uL (0.1-1.0); MONOCYTES % (AUTO) 6.4 % (2.0-9.0); NEUTROPHILS # (AUTO) 2.2 K/uL (1.8-7.7); NEUTROPHILS % (AUTO) 49.4 % (40.0-70.0); PLATELET COUNT (AUTO) 244 K/uL (150-450); RED CELL DISTRIBUTION WIDTH 14.7 % (11.5-14.5); WHITE BLOOD COUNT (AUTO) 4.5 K/uL (4.5-11.0)
[2017-02-02 16:41] LABS: ANION GAP 15 mmol/L (8-16); CALCIUM, TOTAL 9.3 mg/dL (8.8-10.5); CARBON DIOXIDE 20 mmol/L (22-29); CHLORIDE 104 mmol/L (98-107); CREATININE 1.81 mg/dL (0.60-1.30); GLOMERULAR FILTR. RATE CALC 34 mL/min (>60); POTASSIUM 3.2 mmol/L (3.5-5.1); SODIUM SERUM 139 mmol/L (136-145); UREA NITROGEN, BLOOD 42 mg/dL (7-18)
[2017-02-02 17:07] LABS: RBC MORPHOLOGY COMMENT NORMAL RBC MORPH
[2017-02-02] MEDS ORDERED: HALOPERIDOL 5 MG TABLET PO ONE (17:45)
[2017-02-02] MEDS ORDERED: LORazepam 1 MG TABLET PO ONE (17:45)
[2017-02-02 17:52] VITALS: BP 147/82
== END 2017-02-02 18:01 | disposition home or self-care (01) ==
LOC: EMS 14:44 → EEVIPCON 14:44 → EMS 18:01
DX: F20.9 Schizophrenia, unspecified (principal); F31.9 Bipolar disorder, unspecified; F17.210 Nicotine dependence, cigarettes, uncomplicated; I25.10 Atherosclerotic heart disease of native coronary artery without angina pectoris; E11.9 Type 2 diabetes mellitus without complications; K72.90 Hepatic failure, unspecified without coma; K21.9 Gastro-esophageal reflux disease without esophagitis; E78.00 Pure hypercholesterolemia, unspecified; Z86.73 Personal history of transient ischemic attack (TIA), and cerebral infarction without residual deficits; Z95.1 Presence of aortocoronary bypass graft
CPT/HCPCS: 36415; 80048; 82962; 85025; 99284; G0480

== ENCOUNTER 2017-03-12 22:01 | Inpatient (IN) | payer MEDICARE ==
[~2017-03-12] VITALS: Ht 162.6 cm; Wt 71.1 kg
[2017-03-12 22:13] LABS: GLUCOSE,POINT OF CARE 112 MG/DL (70-110)
[2017-03-12 23:44] LABS: BASOPHILS # (AUTO) 0.04 K/uL (0.00-0.20); BASOPHILS % (AUTO) 0.4 % (0.0-2.0); EOSINOPHILS # (AUTO) 0.35 K/uL (0.00-0.70); EOSINOPHILS % (AUTO) 4.34 % (1.0-6.0); HEMATOCRIT 35.3 % (36-46); HEMOGLOBIN 11.7 g/dL (12.0-16.0); LYMPHOCYTES # (AUTO) 1.8 K/uL (1.0-4.8); LYMPHOCYTES % (AUTO) 21.7 % (22.0-44.0); MEAN CORPUSCULAR HEMOGLOBIN 30.2 pg (26.0-34.0); MEAN CORPUSCULAR HGB CONC 33.2 G/dL (31.0-37.0); MEAN CORPUSCULAR VOLUME 91 fL (80-100); MONOCYTES # (AUTO) 0.7 K/uL (0.1-1.0); MONOCYTES % (AUTO) 8.2 % (2.0-9.0); NEUTROPHILS # (AUTO) 5.3 K/uL (1.8-7.7); NEUTROPHILS % (AUTO) 65.3 % (40.0-70.0); PLATELET COUNT (AUTO) 281 K/uL (150-450); RED BLOOD CELL COUNT(AUTO) 3.87 MIL/uL (4.00-5.20); RED CELL DISTRIBUTION WIDTH 16.8 % (11.5-14.5); WHITE BLOOD COUNT (AUTO) 8.1 K/uL (4.5-11.0)
[2017-03-12 23:52] LABS: ANION GAP 11 mmol/L (8-16); CALCIUM, TOTAL 9.2 mg/dL (8.8-10.5); CARBON DIOXIDE 25 mmol/L (22-29); CHLORIDE 107 mmol/L (98-107); GLOMERULAR FILTR. RATE CALC 60 mL/min (>60); POTASSIUM 3.2 mmol/L (3.5-5.1); SODIUM SERUM 143 mmol/L (136-145); UREA NITROGEN, BLOOD 25 mg/dL (7-18)
[2017-03-12 23:58] LABS: ALANINE AMINOTRANSFERASE 17 U/L (12-78); ALBUMIN 3.5 g/dL (3.4-5.0); ASPARTATE AMINOTRANSFERASE 19 U/L (15-37); BILIRUBIN,TOTAL 0.5 mg/dL (0.1-1.0); TOTAL PROTEIN, SERUM 7.2 g/dL (6.4-8.2)
[2017-03-13] MEDS ORDERED: CloNIDine HCL 0.1 MG TABLET PO ONE (00:30)
[2017-03-13] MEDS ORDERED: ACETAMINOPHEN 325 MG TABLET PO PRN ×2 (00:45→15:00)
[2017-03-13] MEDS ORDERED: 0.9% SODIUM CHLORIDE 10 ML SYRINGE IVP PRN (00:45)
[2017-03-13] MEDS ORDERED: ONDANSETRON HCL 4 MG/2 ML VIAL IVP PRN (00:45)
[2017-03-13 01:06] LABS: APPEARANCE,URINE CLEAR (CLEAR); GLUCOSE, URINE (UA) NEGATIVE (NEGATIVE); KETONES,URINE NEGATIVE (NEGATIVE); LEUKOCYTE ESTERASE ,URINE MODERATE (NEGATIVE); OCCULT BLOOD,URINE NEGATIVE (NEGATIVE); PROTEIN,URINE SEE CONFIRM (NEGATIVE)
[2017-03-13 01:10] LABS: SQUAMOUS EPITHELIAL CELL,UR Few /LPF (None Seen); SULFOSALICYLIC ACID,URINE 3+ (Negative)
[2017-03-13 01:11] LABS: RBC,URINE 0-2 /HPF (0-2)
[2017-03-13 01:12] LABS: HYALINE CASTS, URINE 0-2 /LPF (None Seen)
[2017-03-13] MEDS ORDERED: LORazepam 1 MG TABLET PO ONE (01:15)
[2017-03-13] MEDS ORDERED: ASPIRIN 325 MG TABLET PO ONE (02:00)
[2017-03-13] MEDS ORDERED: CefTRIAXone 1 GM/DEXTROSE 50 ML IV ONE (02:00)
[2017-03-13] MEDS ORDERED: NITROGLYCERIN 2% (1 GM=INCH) PACKET TP ONE ×2 (02:00→04:00)
[2017-03-13] MEDS ORDERED: POTASSIUM CHLORIDE 10% 40 MEQ/30 ML LIQUID UDCUP PO ONE (02:15)
[2017-03-13 03:05] VITALS: BP 129/80
[2017-03-13 11:39] VITALS: BP 131/93
[2017-03-13] MEDS: CARVEDILOL 25 MG TABLET PO SCH ×2 (14:38→20:19)
[2017-03-13] MEDS: METOPROLOL SUCCINATE 50 MG ER TABLET PO SCH (14:38)
[2017-03-13] MEDS: ISOSORBIDE MONONITRATE 30 MG ER TABLET PO SCH (14:38)
[2017-03-13] MEDS: AmLODIPine BESYLATE 5 MG TABLET PO SCH ×2 (14:38→20:20)
[2017-03-13] MEDS ORDERED: DiphenhydrAMINE HCL 25 MG/10 ML ELIXIR UDCUP PO PRN (14:45)
[2017-03-13] MEDS ORDERED: BACLOFEN 10 MG TABLET PO PRN (14:45)
[2017-03-13] MEDS ORDERED: DiphenhydrAMINE HCL 50 MG CAPSULE PO PRN (14:45)
[2017-03-13] MEDS: QUEtiapine FUMARATE 100 MG TABLET PO SCH ×2 (15:18→20:20)
[2017-03-13] MEDS: HEPARIN SODIUM,PORCINE 5,000 UNITS/ML VIAL SQ SCH ×3 (15:18→23:26)
[2017-03-13] MEDS: PANTOPRAZOLE SODIUM 40 MG DR TABLET PO SCH (15:18)
[2017-03-13] MEDS: CLOPIDOGREL BISULFATE 75 MG TABLET PO SCH (15:18)
[2017-03-13 16:13] VITALS: BP 141/83
[2017-03-13] MEDS ORDERED: INFLUENZA VIRUS VACCINE QVS 2017-18 (3YR+)/PF 60 MCG/0.5 ML SYRINGE IM ONE (16:30)
[2017-03-13] MEDS: GABAPENTIN 100 MG CAPSULE PO SCH ×2 (18:12→20:19)
[2017-03-13] MEDS: ESCITALOPRAM OXALATE 10 MG TABLET PO SCH (18:12)
[2017-03-13] MEDS: MetFORMIN HCL 500 MG TABLET PO SCH (18:13)
[2017-03-13] MEDS: CHLORTHALIDONE 25 MG TABLET PO SCH (18:13)
[2017-03-13] MEDS: ALBUTEROL SULFATE/IPRATROPIUM 100-20 MCG/SPRAY 4 GM INHALER IH SCH ×2 (18:15→20:20)
[2017-03-13 19:51] VITALS: BP 137/75
[2017-03-13] MEDS ORDERED: QUEtiapine FUMARATE 25 MG TABLET PO SCH (21:00)
[2017-03-13] MEDS ORDERED: SIMVASTATIN 20 MG TABLET PO SCH (21:00)
[2017-03-14 00:14] VITALS: BP 126/78
[2017-03-14] MEDS ORDERED: SODIUM CHLORIDE 0.9% 500 ML IV ONE (01:24)
[2017-03-14] MEDS ORDERED: CefTRIAXone 1 GM/DEXTROSE 50 ML IV SCH (02:00)
[2017-03-14 04:51] VITALS: BP 127/71
[2017-03-14 06:54] LABS: BASOPHILS % (AUTO) 0.7 % (0.0-2.0); EOSINOPHILS % (AUTO) 8.4 % (1.0-6.0); HEMATOCRIT 32.2 % (36-46); HEMOGLOBIN 10.7 g/dL (12.0-16.0); LYMPHOCYTES # (AUTO) 1.6 K/uL (1.0-4.8); LYMPHOCYTES % (AUTO) 30.8 % (22.0-44.0); MEAN CORPUSCULAR HEMOGLOBIN 30.2 pg (26.0-34.0); MEAN CORPUSCULAR HGB CONC 33.3 G/dL (31.0-37.0); MEAN CORPUSCULAR VOLUME 91 fL (80-100); MONOCYTES # (AUTO) 0.5 K/uL (0.1-1.0); MONOCYTES % (AUTO) 8.6 % (2.0-9.0); NEUTROPHILS # (AUTO) 2.7 K/uL (1.8-7.7); NEUTROPHILS % (AUTO) 51.5 % (40.0-70.0); PLATELET COUNT (AUTO) 229 K/uL (150-450); RED BLOOD CELL COUNT(AUTO) 3.56 MIL/uL (4.00-5.20); RED CELL DISTRIBUTION WIDTH 16.9 % (11.5-14.5)
[2017-03-14 07:16] LABS: CALCIUM, TOTAL 8.6 mg/dL (8.8-10.5); CHOL/HDL RATIO 4.9 (3.9-5.7); CREATININE 1.22 mg/dL (0.60-1.30); MAGNESIUM 1.9 mg/dL (1.80-2.40); POTASSIUM 3.8 mmol/L (3.5-5.1)
[2017-03-14 07:20] LABS: HEMOGLOBIN A1C 6.5 % (4.5-6.2)
[2017-03-14 07:28] VITALS: BP 130/74
[2017-03-14 07:42] LABS: WHITE BLOOD COUNT (AUTO) 5.3 K/uL (4.5-11.0)
[2017-03-14] MEDS: HEPARIN SODIUM,PORCINE 5,000 UNITS/ML VIAL SQ SCH ×2 (08:00→16:00)
[2017-03-14] MEDS: PANTOPRAZOLE SODIUM 40 MG DR TABLET PO SCH (08:47)
[2017-03-14] MEDS: CLOPIDOGREL BISULFATE 75 MG TABLET PO SCH (08:47)
[2017-03-14] MEDS: MetFORMIN HCL 500 MG TABLET PO SCH (08:47)
[2017-03-14] MEDS: ISOSORBIDE MONONITRATE 30 MG ER TABLET PO SCH (08:47)
[2017-03-14] MEDS: AmLODIPine BESYLATE 5 MG TABLET PO SCH (08:48)
[2017-03-14] MEDS: GABAPENTIN 100 MG CAPSULE PO SCH ×2 (08:48→16:09)
[2017-03-14] MEDS: ALBUTEROL SULFATE/IPRATROPIUM 100-20 MCG/SPRAY 4 GM INHALER IH SCH ×3 (08:49→16:00)
[2017-03-14] MEDS: ESCITALOPRAM OXALATE 10 MG TABLET PO SCH (08:50)
[2017-03-14] MEDS ORDERED: DULoxetine HCL 60 MG CAPSULE PO SCH (09:00)
[2017-03-14] MEDS: CHLORTHALIDONE 25 MG TABLET PO SCH (09:02)
[2017-03-14] MEDS: CARVEDILOL 25 MG TABLET PO SCH (11:05)
[2017-03-14] MEDS: METOPROLOL SUCCINATE 50 MG ER TABLET PO SCH (11:05)
[2017-03-14] MEDS: QUEtiapine FUMARATE 100 MG TABLET PO SCH ×2 (11:05→16:10)
[2017-03-14 12:00] VITALS: BP 120/68
[2017-03-14] MEDS ORDERED: BACL10TA PO (14:42)
[2017-03-14 15:04] VITALS: BP 100/62
[2017-05-29] MEDS ORDERED: AMLO-511 PO (19:23)
== END 2017-03-14 16:45 | disposition home or self-care (01) | DRG 441 ==
LOC: EMS 22:03 → 5N 03-13 00:59 → 5S 03-14 02:00
PROVIDERS: ADMIT Family Medicine; ATTEND Family Medicine
DX: K72.90 Hepatic failure, unspecified without coma (principal); I21.4 Non-ST elevation (NSTEMI) myocardial infarction; R45.851 Suicidal ideations; N39.0 Urinary tract infection, site not specified; F20.0 Paranoid schizophrenia; I25.110 Atherosclerotic heart disease of native coronary artery with unstable angina pectoris; E11.9 Type 2 diabetes mellitus without complications; J44.9 Chronic obstructive pulmonary disease, unspecified; I10 Essential (primary) hypertension; F19.10 Other psychoactive substance abuse, uncomplicated; I25.10 Atherosclerotic heart disease of native coronary artery without angina pectoris; F31.9 Bipolar disorder, unspecified; E78.00 Pure hypercholesterolemia, unspecified; F17.210 Nicotine dependence, cigarettes, uncomplicated; E87.6 Hypokalemia; K21.9 Gastro-esophageal reflux disease without esophagitis; K74.60 Unspecified cirrhosis of liver; Z86.73 Personal history of transient ischemic attack (TIA), and cerebral infarction without residual deficits; Z79.02 Long term (current) use of antithrombotics/antiplatelets; Z79.84 Long term (current) use of oral hypoglycemic drugs; Z79.899 Other long term (current) drug therapy; Z90.710 Acquired absence of both cervix and uterus; Z95.1 Presence of aortocoronary bypass graft; Z91.19 Patient's noncompliance with other medical treatment and regimen; Z71.6 Tobacco abuse counseling
CPT/HCPCS: 82962; 83036; 83735; 87086; 93005; 96365; 97162; 97165; 99291; G0480; J0696; J1644; J7040

== ENCOUNTER 2017-04-30 13:07 | Inpatient (IN) | payer MEDICARE, MEDICAID ==
[~2017-04-30] VITALS: Ht 162.6 cm; Wt 64.3 kg
[2017-04-30 13:49] LABS: BASOPHILS % (AUTO) 0.6 % (0.0-2.0); EOSINOPHILS % (AUTO) 5.2 % (1.0-6.0); HEMATOCRIT 36.2 % (36-46); HEMOGLOBIN 12.2 g/dL (12.0-16.0); LYMPHOCYTES # (AUTO) 1.4 K/uL (1.0-4.8); LYMPHOCYTES % (AUTO) 24.5 % (22.0-44.0); MEAN CORPUSCULAR HEMOGLOBIN 30.5 pg (26.0-34.0); MEAN CORPUSCULAR HGB CONC 33.8 G/dL (31.0-37.0); MEAN CORPUSCULAR VOLUME 90 fL (80-100); MONOCYTES # (AUTO) 0.6 K/uL (0.1-1.0); MONOCYTES % (AUTO) 10.2 % (2.0-9.0); NEUTROPHILS # (AUTO) 3.3 K/uL (1.8-7.7); NEUTROPHILS % (AUTO) 59.5 % (40.0-70.0); PLATELET COUNT (AUTO) 229 K/uL (150-450); RED BLOOD CELL COUNT(AUTO) 4.01 MIL/uL (4.00-5.20); WHITE BLOOD COUNT (AUTO) 5.5 K/uL (4.5-11.0)
[2017-04-30 14:00] LABS: ANION GAP 9 mmol/L (8-16); CALCIUM, TOTAL 9.3 mg/dL (8.8-10.5); CARBON DIOXIDE 23 mmol/L (22-29); CHLORIDE 107 mmol/L (98-107); CREATININE 1.03 mg/dL (0.60-1.30); GLOMERULAR FILTR. RATE CALC > 60 mL/min (>60); POTASSIUM 3.1 mmol/L (3.5-5.1); SODIUM SERUM 139 mmol/L (136-145); UREA NITROGEN, BLOOD 18 mg/dL (7-18)
[2017-04-30 14:05] LABS: ALANINE AMINOTRANSFERASE 17 U/L (12-78); ALBUMIN 3.3 g/dL (3.4-5.0); ASPARTATE AMINOTRANSFERASE 16 U/L (15-37); BILIRUBIN,TOTAL 0.5 mg/dL (0.1-1.0); TOTAL PROTEIN, SERUM 6.9 g/dL (6.4-8.2)
[2017-04-30 14:16] LABS: RBC MORPHOLOGY COMMENT NORMAL RBC MORPH
[2017-04-30] MEDS ORDERED: ASPIRIN 325 MG TABLET PO ONE (15:00)
[2017-04-30] MEDS ORDERED: NITROGLYCERIN 2% (1 GM=INCH) PACKET TP ONE (15:00)
[2017-04-30 15:29] LABS: APPEARANCE,URINE CLEAR (CLEAR); GLUCOSE, URINE (UA) NEGATIVE (NEGATIVE); KETONES,URINE TRACE mg/dL (NEGATIVE); LEUKOCYTE ESTERASE ,URINE SMALL (NEGATIVE); OCCULT BLOOD,URINE TRACE (NEGATIVE); PH,URINE 5.5 (5.0-8.0); PROTEIN,URINE SEE CONFIRM (NEGATIVE)
[2017-04-30] MEDS ORDERED: POTASSIUM CHLORIDE 20 MEQ ER TABLET PO ONE (15:30)
[2017-04-30 15:43] LABS: SQUAMOUS EPITHELIAL CELL,UR Few /LPF (None Seen); SULFOSALICYLIC ACID,URINE 4+ (Negative)
[2017-04-30] MEDS ORDERED: ACETAMINOPHEN 325 MG TABLET PO PRN (16:15)
[2017-04-30] MEDS ORDERED: 0.9% SODIUM CHLORIDE 10 ML SYRINGE IVP PRN (16:15)
[2017-04-30] MEDS ORDERED: ONDANSETRON HCL 4 MG/2 ML VIAL IVP PRN ×2 (16:15→19:00)
[2017-04-30] MEDS ORDERED: IOVERSOL 320 MG/ML 100 ML VIAL ONE (17:00)
[2017-04-30 18:27] VITALS: BP 147/106
[2017-04-30] MEDS ORDERED: METOPROLOL TARTRATE 50 MG TABLET PO SCH (19:00)
[2017-04-30] MEDS ORDERED: BACLOFEN 10 MG TABLET PO PRN (19:00)
[2017-04-30] MEDS ORDERED: NITROGLYCERIN 2% (1 GM=INCH) PACKET TP PRN (19:00)
[2017-04-30] MEDS ORDERED: HydrALAZINE HCL 20 MG/ML VIAL IVP PRN (19:00)
[2017-04-30 19:54] VITALS: BP 159/100
[2017-04-30] MEDS: LISINOPRIL 20 MG TABLET PO SCH (20:05)
[2017-04-30] MEDS: SIMVASTATIN 20 MG TABLET PO SCH (20:05)
[2017-04-30] MEDS: CARVEDILOL 25 MG TABLET PO SCH (20:09)
[2017-04-30] MEDS: GABAPENTIN 100 MG CAPSULE PO SCH (20:09)
[2017-04-30] MEDS: CHLORTHALIDONE 25 MG TABLET PO SCH (20:09)
[2017-04-30] MEDS: QUEtiapine FUMARATE 25 MG TABLET PO SCH (20:09)
[2017-04-30] MEDS: DULoxetine HCL 60 MG CAPSULE PO SCH (20:10)
[2017-04-30] MEDS: ESCITALOPRAM OXALATE 10 MG TABLET PO SCH (20:10)
[2017-04-30] MEDS: CLOPIDOGREL BISULFATE 75 MG TABLET PO SCH (21:24)
[2017-04-30] MEDS: ISOSORBIDE MONONITRATE 30 MG ER TABLET PO SCH (21:44)
[2017-04-30] MEDS: CloNIDine HCL 0.2 MG TABLET PO SCH (21:44)
[2017-04-30] MEDS: HYDROCODONE/ACETAMINOPHEN 5-325 MG TABLET PO PRN (21:45)
[2017-04-30] MEDS: ALBUTEROL SULFATE/IPRATROPIUM 100-20 MCG/SPRAY 4 GM INHALER IH SCH (21:45)
[2017-04-30 23:44] VITALS: BP 134/85
[2017-05-01] VITALS (14 sets, daily range): BP systolic 89–175; BP diastolic 52–94
[2017-05-01] MEDS ORDERED: SODIUM CHLORIDE 0.9% 500 ML IV ONE ×2 (06:21→08:53)
[2017-05-01 07:11] LABS: BASOPHILS % (AUTO) 0.4 % (0.0-2.0); EOSINOPHILS % (AUTO) 4.1 % (1.0-6.0); HEMATOCRIT 32.7 % (36-46); HEMOGLOBIN 11.1 g/dL (12.0-16.0); LYMPHOCYTES # (AUTO) 1.1 K/uL (1.0-4.8); LYMPHOCYTES % (AUTO) 18.3 % (22.0-44.0); MEAN CORPUSCULAR VOLUME 91 fL (80-100); MONOCYTES # (AUTO) 0.6 K/uL (0.1-1.0); MONOCYTES % (AUTO) 9.4 % (2.0-9.0); NEUTROPHILS # (AUTO) 4.3 K/uL (1.8-7.7); NEUTROPHILS % (AUTO) 67.8 % (40.0-70.0); PLATELET COUNT (AUTO) 223 K/uL (150-450); RED BLOOD CELL COUNT(AUTO) 3.58 MIL/uL (4.00-5.20); RED CELL DISTRIBUTION WIDTH 16.1 % (11.5-14.5); WHITE BLOOD COUNT (AUTO) 6.3 K/uL (4.5-11.0)
[2017-05-01 07:40] LABS: ALBUMIN 2.8 g/dL (3.4-5.0); BILIRUBIN,TOTAL 0.2 mg/dL (0.1-1.0); CALCIUM, TOTAL 8.9 mg/dL (8.8-10.5); CREATININE 1.72 mg/dL (0.60-1.30); POTASSIUM 4.7 mmol/L (3.5-5.1); TOTAL PROTEIN, SERUM 6.4 g/dL (6.4-8.2)
[2017-05-01] MEDS ORDERED: ALBUMIN HUMAN 5%-12.5GM/250ML 250 ML IV ONE (07:45)
[2017-05-01] MEDS ORDERED: MetFORMIN HCL 500 MG TABLET PO SCH (08:00)
[2017-05-01] MEDS: ALBUTEROL SULFATE/IPRATROPIUM 100-20 MCG/SPRAY 4 GM INHALER IH SCH ×4 (08:57→20:31)
[2017-05-01] MEDS: DULoxetine HCL 60 MG CAPSULE PO SCH (08:59)
[2017-05-01] MEDS: CARVEDILOL 25 MG TABLET PO SCH (08:59)
[2017-05-01] MEDS: CloNIDine HCL 0.2 MG TABLET PO SCH (08:59)
[2017-05-01] MEDS: GABAPENTIN 100 MG CAPSULE PO SCH ×3 (09:00→20:31)
[2017-05-01] MEDS: ISOSORBIDE MONONITRATE 30 MG ER TABLET PO SCH (09:00)
[2017-05-01] MEDS: QUEtiapine FUMARATE 100 MG TABLET PO SCH ×3 (09:00→16:08)
[2017-05-01] MEDS: ESCITALOPRAM OXALATE 10 MG TABLET PO SCH (09:00)
[2017-05-01] MEDS ORDERED: AmLODIPine BESYLATE 10 MG TABLET PO SCH (09:00)
[2017-05-01] MEDS: LISINOPRIL 20 MG TABLET PO SCH (09:00)
[2017-05-01] MEDS: SIMVASTATIN 20 MG TABLET PO SCH (09:00)
[2017-05-01] MEDS: CLOPIDOGREL BISULFATE 75 MG TABLET PO SCH (09:00)
[2017-05-01] MEDS: CHLORTHALIDONE 25 MG TABLET PO SCH (09:00)
[2017-05-01] MEDS: HYDROCODONE/ACETAMINOPHEN 5-325 MG TABLET PO PRN ×2 (10:35→20:33)
[2017-05-01] MEDS ORDERED: BISACODYL 10 MG RECTAL RECTAL SUPPOSITORY PR ONE (11:30)
[2017-05-01] MEDS: MAGNESIUM HYDROXIDE SUSPENSION 30 ML UDCUP PO PRN (16:09)
[2017-05-01] MEDS: QUEtiapine FUMARATE 25 MG TABLET PO SCH (20:31)
[2017-05-01 23:59] LABS: GLUCOSE,POINT OF CARE 185 MG/DL (70-110)
[2017-05-02] VITALS (9 sets, daily range): BP systolic 94–144; BP diastolic 53–85
[2017-05-02 05:36] LABS: BASOPHILS # (AUTO) 0.02 K/uL (0.00-0.20); BASOPHILS % (AUTO) 0.3 % (0.0-2.0); EOSINOPHILS # (AUTO) 0.22 K/uL (0.00-0.70); EOSINOPHILS % (AUTO) 3.18 % (1.0-6.0); HEMATOCRIT 32.2 % (36-46); HEMOGLOBIN 10.6 g/dL (12.0-16.0); LYMPHOCYTES # (AUTO) 1.4 K/uL (1.0-4.8); LYMPHOCYTES % (AUTO) 19.6 % (22.0-44.0); MEAN CORPUSCULAR HEMOGLOBIN 30.5 pg (26.0-34.0); MEAN CORPUSCULAR HGB CONC 32.9 G/dL (31.0-37.0); MEAN CORPUSCULAR VOLUME 93 fL (80-100); MONOCYTES # (AUTO) 0.5 K/uL (0.1-1.0); MONOCYTES % (AUTO) 6.8 % (2.0-9.0); NEUTROPHILS # (AUTO) 4.8 K/uL (1.8-7.7); NEUTROPHILS % (AUTO) 70.2 % (40.0-70.0); PLATELET COUNT (AUTO) 189 K/uL (150-450); RED BLOOD CELL COUNT(AUTO) 3.48 MIL/uL (4.00-5.20); RED CELL DISTRIBUTION WIDTH 16.7 % (11.5-14.5); WHITE BLOOD COUNT (AUTO) 6.9 K/uL (4.5-11.0)
[2017-05-02 05:40] LABS: CALCIUM, TOTAL 8.9 mg/dL (8.8-10.5); CREATININE 1.32 mg/dL (0.60-1.30); POTASSIUM 3.9 mmol/L (3.5-5.1)
[2017-05-02] MEDS ORDERED: MetFORMIN HCL 500 MG TABLET PO SCH (08:00)
[2017-05-02] MEDS: ALBUTEROL SULFATE/IPRATROPIUM 100-20 MCG/SPRAY 4 GM INHALER IH SCH ×4 (09:28→20:53)
[2017-05-02] MEDS: ISOSORBIDE MONONITRATE 30 MG ER TABLET PO SCH (09:28)
[2017-05-02] MEDS: DULoxetine HCL 60 MG CAPSULE PO SCH (09:28)
[2017-05-02] MEDS: QUEtiapine FUMARATE 100 MG TABLET PO SCH ×3 (09:29→16:00)
[2017-05-02] MEDS: ESCITALOPRAM OXALATE 10 MG TABLET PO SCH (09:29)
[2017-05-02] MEDS: CLOPIDOGREL BISULFATE 75 MG TABLET PO SCH (09:29)
[2017-05-02] MEDS: GABAPENTIN 100 MG CAPSULE PO SCH ×3 (09:30→20:56)
[2017-05-02] MEDS: SIMVASTATIN 20 MG TABLET PO SCH (09:34)
[2017-05-02] MEDS: CARVEDILOL 25 MG TABLET PO SCH (15:57)
[2017-05-02] MEDS: QUEtiapine FUMARATE 25 MG TABLET PO SCH (20:54)
[2017-05-03] MEDS: CARVEDILOL 25 MG TABLET PO SCH ×2 (00:22→12:17)
[2017-05-03] MEDS: HYDROCODONE/ACETAMINOPHEN 5-325 MG TABLET PO PRN (00:29)
[2017-05-03 04:01] VITALS: BP 132/75
[2017-05-03 06:51] LABS: BASOPHILS % (AUTO) 0.4 % (0.0-2.0); EOSINOPHILS % (AUTO) 4.7 % (1.0-6.0); HEMATOCRIT 30.7 % (36-46); HEMOGLOBIN 10.4 g/dL (12.0-16.0); LYMPHOCYTES # (AUTO) 1.7 K/uL (1.0-4.8); LYMPHOCYTES % (AUTO) 28.8 % (22.0-44.0); MEAN CORPUSCULAR HEMOGLOBIN 31.2 pg (26.0-34.0); MEAN CORPUSCULAR HGB CONC 33.8 G/dL (31.0-37.0); MEAN CORPUSCULAR VOLUME 92 fL (80-100); MONOCYTES # (AUTO) 0.5 K/uL (0.1-1.0); MONOCYTES % (AUTO) 8.5 % (2.0-9.0); NEUTROPHILS # (AUTO) 3.5 K/uL (1.8-7.7); NEUTROPHILS % (AUTO) 57.6 % (40.0-70.0); PLATELET COUNT (AUTO) 187 K/uL (150-450); RED BLOOD CELL COUNT(AUTO) 3.32 MIL/uL (4.00-5.20); RED CELL DISTRIBUTION WIDTH 16.6 % (11.5-14.5); WHITE BLOOD COUNT (AUTO) 6.1 K/uL (4.5-11.0)
[2017-05-03 07:11] LABS: CREATININE 1.18 mg/dL (0.60-1.30); MAGNESIUM 1.7 mg/dL (1.80-2.40); POTASSIUM 3.7 mmol/L (3.5-5.1)
[2017-05-03 07:58] VITALS: BP 146/87
[2017-05-03] MEDS: ALBUTEROL SULFATE/IPRATROPIUM 100-20 MCG/SPRAY 4 GM INHALER IH SCH ×3 (09:30→16:56)
[2017-05-03] MEDS: DULoxetine HCL 60 MG CAPSULE PO SCH (09:30)
[2017-05-03] MEDS: ESCITALOPRAM OXALATE 10 MG TABLET PO SCH (09:31)
[2017-05-03] MEDS: GABAPENTIN 100 MG CAPSULE PO SCH ×2 (09:31→16:56)
[2017-05-03] MEDS: CLOPIDOGREL BISULFATE 75 MG TABLET PO SCH (09:31)
[2017-05-03] MEDS: ISOSORBIDE MONONITRATE 30 MG ER TABLET PO SCH (09:31)
[2017-05-03] MEDS: SIMVASTATIN 20 MG TABLET PO SCH (09:32)
[2017-05-03] MEDS: QUEtiapine FUMARATE 100 MG TABLET PO SCH ×3 (09:32→16:56)
[2017-05-03 11:28] VITALS: BP 142/81
[2017-05-03] MEDS: MAGNESIUM HYDROXIDE SUSPENSION 30 ML UDCUP PO PRN (12:18)
[2017-05-03] MEDS ORDERED: MAGNESIUM SULFATE 2 GM in DEXTROSE 5%-WATER 50 ML IV ONE (14:45)
[2017-05-03] MEDS ORDERED: SODIUM CHLORIDE 0.9% 100 ML ONE (15:13)
[2017-05-03] MEDS ORDERED: HYDR-309 PO (15:46)
[2017-05-03] MEDS ORDERED: MOM30 PO (15:46)
[2017-05-03] MEDS ORDERED: NTP TD (15:47)
[2017-05-03 16:12] VITALS: BP 152/86
[2017-05-03] MEDS ORDERED: AmLODIPine BESYLATE 5 MG TABLET PO SCH (17:00)
[2017-05-29] MEDS ORDERED: AMLO-511 PO (19:23)
== END 2017-05-03 17:50 | DRG 281 ==
LOC: EMS 13:09 → 5S 16:18 → ICU 05-01 09:30 → 5S 05-02 21:15
PROVIDERS: ADMIT Family Medicine; ATTEND Family Medicine
PROC: 05HM33Z Insertion of Infusion Device into Right Internal Jugular Vein, Percutaneous Approach (ICD-10-PCS; principal; 2017-05-01)
PROC: B543ZZA Ultrasonography of Right Jugular Veins, Guidance (ICD-10-PCS; 2017-05-01)
DX: I21.4 Non-ST elevation (NSTEMI) myocardial infarction (principal); I13.0 Hypertensive heart and chronic kidney disease with heart failure and stage 1 through stage 4 chronic kidney disease, or unspecified chronic kidney disease; E11.22 Type 2 diabetes mellitus with diabetic chronic kidney disease; I95.9 Hypotension, unspecified; I50.32 Chronic diastolic (congestive) heart failure; K74.60 Unspecified cirrhosis of liver; F45.8 Other somatoform disorders; N18.3 Chronic kidney disease, stage 3 (moderate); I25.10 Atherosclerotic heart disease of native coronary artery without angina pectoris; E78.5 Hyperlipidemia, unspecified; E87.6 Hypokalemia; F17.210 Nicotine dependence, cigarettes, uncomplicated; F20.9 Schizophrenia, unspecified; F31.9 Bipolar disorder, unspecified; K21.9 Gastro-esophageal reflux disease without esophagitis; R29.6 Repeated falls; Z86.73 Personal history of transient ischemic attack (TIA), and cerebral infarction without residual deficits; Z90.710 Acquired absence of both cervix and uterus; Z91.14 Patient's other noncompliance with medication regimen; Z91.19 Patient's noncompliance with other medical treatment and regimen; Z95.1 Presence of aortocoronary bypass graft
CPT/HCPCS: 70450; 71275; 80307; 82962; 83735; 84145; 87081; 87086; 93005; 97161; 99285; J0360; J3475; J7040; J7050; J7060; P9041

== ENCOUNTER 2017-09-04 06:43 | Emergency (ER) | payer MEDICARE, MEDICAID ==
[~2017-09-04] VITALS: Ht 157.5 cm; Wt 63.6 kg
[~2017-09-04 06:43] MED LIST changes: +AMLO-511 PO; -AMLO-512 PO; -CHL25 PO; -CLON.2 PO; -D-ME118S13 PO; -DIPH12.55 PO; -DIPH50 PO; +HYDR-309 PO; -LISI-662 PO; -METF500T4 PO; -METO50 PO; +MOM30 PO; +NTP TD
[2017-09-04 06:45] VITALS: BP 132/78
[2017-09-04] MEDS ORDERED: LISI1TAB11 PO (19:57)
[2017-09-04] MEDS ORDERED: METF500T4 PO (19:57)
== END 2017-09-04 07:30 | disposition left against medical advice (07) ==
LOC: EMS 06:45
DX: F91.8 Other conduct disorders (principal); K21.9 Gastro-esophageal reflux disease without esophagitis; F31.9 Bipolar disorder, unspecified; E11.9 Type 2 diabetes mellitus without complications; E78.00 Pure hypercholesterolemia, unspecified; I10 Essential (primary) hypertension; I25.10 Atherosclerotic heart disease of native coronary artery without angina pectoris; F20.9 Schizophrenia, unspecified; F17.210 Nicotine dependence, cigarettes, uncomplicated; Z86.73 Personal history of transient ischemic attack (TIA), and cerebral infarction without residual deficits; Z53.21 Procedure and treatment not carried out due to patient leaving prior to being seen by health care provider

== ENCOUNTER 2017-09-04 19:30 | Inpatient (IN) | payer OTHER, MEDICAID ==
[~2017-09-04] VITALS: Ht 162.6 cm; Wt 63.6 kg
[2017-09-04 19:57] LABS: GLUCOSE,POINT OF CARE 106 MG/DL (70-110)
[2017-09-04] MEDS ORDERED: METF500T4 PO (19:57)
[2017-09-04] MEDS ORDERED: LISI1TAB11 PO (19:57)
[2017-09-04 20:48] LABS: BASOPHILS % (AUTO) 0.3 % (0.0-2.0); EOSINOPHILS % (AUTO) 3.4 % (1.0-6.0); HEMATOCRIT 33.3 % (36-46); HEMOGLOBIN 11.2 g/dL (12.0-16.0); LYMPHOCYTES # (AUTO) 1.3 K/uL (1.0-4.8); MEAN CORPUSCULAR HEMOGLOBIN 30.4 pg (26.0-34.0); MEAN CORPUSCULAR HGB CONC 33.7 G/dL (31.0-37.0); MEAN CORPUSCULAR VOLUME 90 fL (80-100); MONOCYTES # (AUTO) 0.7 K/uL (0.1-1.0); MONOCYTES % (AUTO) 8.2 % (2.0-9.0); NEUTROPHILS # (AUTO) 6.5 K/uL (1.8-7.7); NEUTROPHILS % (AUTO) 73.1 % (40.0-70.0); PLATELET COUNT (AUTO) 297 K/uL (150-450); RED BLOOD CELL COUNT(AUTO) 3.69 MIL/uL (4.00-5.20); RED CELL DISTRIBUTION WIDTH 16.6 % (11.5-14.5)
[2017-09-04 20:56] LABS: ANION GAP 18 mmol/L (8-16); CALCIUM, TOTAL 9.6 mg/dL (8.8-10.5); CARBON DIOXIDE 18 mmol/L (22-29); CHLORIDE 107 mmol/L (98-107); CREATININE 2.02 mg/dL (0.60-1.30); GLOMERULAR FILTR. RATE CALC 30 mL/min (>60); GLUCOSE,RANDOM 103 mg/dL (70-110); POTASSIUM 3.9 mmol/L (3.5-5.1); SODIUM SERUM 143 mmol/L (136-145); UREA NITROGEN, BLOOD 37 mg/dL (7-18)
[2017-09-04 21:01] LABS: ALANINE AMINOTRANSFERASE 18 U/L (12-78); ALKALINE PHOSPHATASE 98 U/L (46-116); ASPARTATE AMINOTRANSFERASE 22 U/L (15-37); BILIRUBIN,TOTAL 0.5 mg/dL (0.1-1.0); TOTAL PROTEIN, SERUM 8.3 g/dL (6.4-8.2)
[2017-09-04 22:43] LABS: APPEARANCE,URINE CLOUDY (CLEAR); BILIRUBIN,URINE PRELIM. POSITIVE (NEGATIVE); GLUCOSE, URINE (UA) NEGATIVE (NEGATIVE); KETONES,URINE TRACE mg/dL (NEGATIVE); LEUKOCYTE ESTERASE ,URINE SMALL (NEGATIVE); NITRATE,URINE NEGATIVE (NEGATIVE); OCCULT BLOOD,URINE TRACE (NEGATIVE); PROTEIN,URINE SEE CONFIRM (NEGATIVE)
[2017-09-04] MEDS ORDERED: HALOPERIDOL 5 MG TABLET PO PRN (22:45)
[2017-09-04 22:58] LABS: SULFOSALICYLIC ACID,URINE 3+ (Negative)
[2017-09-04 23:00] LABS: BACTERIA,URINE Few /HPF (None Seen)
[2017-09-04 23:01] LABS: RENAL EPITHELIAL CELLS,URINE Few /LPF (None Seen); TRANSITIONAL EPI CELLS,URINE Few /LPF (None Seen)
[2017-09-04 23:02] LABS: HYALINE CASTS, URINE 0-2 /LPF (None Seen)
[2017-09-04 23:03] LABS: COARSE GRANULAR CASTS,URINE 0-2 /LPF (None Seen)
[2017-09-04 23:07] LABS: AMPHET/METH SCREEN,URINE NEGATIVE (NEGATIVE); BARBITURATE SCREEN, URINE NEGATIVE (NEGATIVE); BENZODIAZEPINES SCREEN,URINE NEGATIVE (NEGATIVE); CANNABINOID SCREEN,URINE NEGATIVE (NEGATIVE); COCAINE SCREEN,URINE NEGATIVE (NEGATIVE); METHADONE SCREEN, URINE NEGATIVE (NEGATIVE); OPIATE SCREEN,URINE NEGATIVE (NEGATIVE)
[2017-09-04 23:08] LABS: PHENCYCLIDINE SCREEN,URINE NEGATIVE (NEGATIVE)
[2017-09-05 01:02] LABS: CHOL/HDL RATIO 4.1 (3.9-5.7); CHOLESTEROL 221 mg/dL (131-200); HDL CHOLESTEROL 54 mg/dL (40-60); LDL CHOL (CALC.) 150 mg/dL (0-130); TRIGLYCERIDES 84 mg/dL (15-150)
[2017-09-05] MEDS ORDERED: DiphenhydrAMINE HCL 25 MG CAPSULE PO ONE (11:00)
[2017-09-05 19:02] LABS: GLUCOSE,POINT OF CARE 136 MG/DL (70-110)
[2017-09-05] MEDS: LORazepam 2 MG TABLET PO PRN (20:08)
[2017-09-05 21:28] VITALS: BP 168/110
[2017-09-05 21:42] VITALS: BP 168/110
[2017-09-06] MEDS ORDERED: PNEUMOCOCCAL VACCINE POLYVALENT 0.5 ML VIAL [PPSV23] IM ONE (01:00)
[2017-09-06 05:47] LABS: GLUCOMETER DEV NAME(LOC) 3EI B; GLUCOSE,POINT OF CARE 78 MG/DL (70-110)
[2017-09-06] MEDS: MetFORMIN HCL 500 MG TABLET PO SCH ×2 (07:20→17:27)
[2017-09-06] MEDS: ESCITALOPRAM OXALATE 10 MG TABLET PO SCH (09:00)
[2017-09-06] MEDS: LISINOPRIL 20 MG TABLET PO SCH (09:00)
[2017-09-06] MEDS ORDERED: HYDROCHLOROTHIAZIDE 25 MG TABLET PO SCH (09:00)
[2017-09-06 09:30] VITALS: BP 152/76
[2017-09-06 16:48] LABS: GLUCOMETER DEV NAME(LOC) 3EX 1; GLUCOSE,POINT OF CARE 90 MG/DL (70-110)
[2017-09-06] MEDS: DiphenhydrAMINE HCL 25 MG CAPSULE PO PRN (17:28)
[2017-09-06] MEDS ORDERED: IBUPROFEN 400 MG TABLET PO PRN (18:30)
[2017-09-06] MEDS ORDERED: ACETAMINOPHEN 325 MG TABLET PO PRN (18:30)
[2017-09-06 19:30] VITALS: BP 149/92
[2017-09-06] MEDS: SIMVASTATIN 20 MG TABLET PO SCH (20:11)
[2017-09-06] MEDS: HydrALAZINE HCL 25 MG TABLET PO SCH (20:12)
[2017-09-07 06:19] LABS: GLUCOMETER DEV NAME(LOC) 3EI B; GLUCOSE,POINT OF CARE 86 MG/DL (70-110)
[2017-09-07] MEDS ORDERED: GlipiZIDE 5 MG TABLET PO SCH (07:00)
[2017-09-07] MEDS: ESCITALOPRAM OXALATE 10 MG TABLET PO SCH (08:36)
[2017-09-07] MEDS: LISINOPRIL 20 MG TABLET PO SCH (08:36)
[2017-09-07] MEDS: HydrALAZINE HCL 25 MG TABLET PO SCH ×2 (08:36→16:45)
[2017-09-07 09:15] VITALS: BP 142/85
[2017-09-07] MEDS: DiphenhydrAMINE HCL 25 MG CAPSULE PO PRN (16:45)
[2017-09-07 16:49] VITALS: BP 128/69
[2017-09-07 16:49] LABS: GLUCOMETER DEV NAME(LOC) 3EX 1; GLUCOSE,POINT OF CARE 67 MG/DL (70-110)
[2017-09-07] MEDS: GlipiZIDE 5 MG TABLET PO SCH (17:23)
[2017-09-07] MEDS: SIMVASTATIN 20 MG TABLET PO SCH (20:11)
[2017-09-08 06:28] VITALS: BP 165/100
[2017-09-08 06:33] LABS: GLUCOMETER DEV NAME(LOC) 3EI B; GLUCOSE,POINT OF CARE 87 MG/DL (70-110)
[2017-09-08] MEDS: GlipiZIDE 5 MG TABLET PO SCH ×2 (06:55→17:26)
[2017-09-08 08:00] VITALS: BP 107/58
[2017-09-08] MEDS: HydrALAZINE HCL 25 MG TABLET PO SCH ×3 (09:00→17:26)
[2017-09-08] MEDS: LISINOPRIL 20 MG TABLET PO SCH (09:00)
[2017-09-08] MEDS: ESCITALOPRAM OXALATE 10 MG TABLET PO SCH (09:11)
[2017-09-08 17:37] LABS: GLUCOMETER DEV NAME(LOC) 3EX 1; GLUCOSE,POINT OF CARE 84 MG/DL (70-110)
[2017-09-08] MEDS ORDERED: PERMETHRIN 5% 60 GM CREAM TP ONE (20:00)
[2017-09-08] MEDS: SIMVASTATIN 20 MG TABLET PO SCH (20:36)
[2017-09-08] MEDS: RisperiDONE 0.5 MG TABLET PO SCH (20:36)
[2017-09-08 21:53] VITALS: BP 137/76
[2017-09-08] MEDS: ZOLPIDEM TARTRATE 10 MG TABLET PO PRN (23:10)
[2017-09-09 05:38] VITALS: BP 159/110
[2017-09-09] MEDS: LORazepam 2 MG TABLET PO PRN (05:48)
[2017-09-09 06:15] VITALS: BP 147/93
[2017-09-09 06:17] LABS: GLUCOMETER DEV NAME(LOC) 3EI B; GLUCOSE,POINT OF CARE 119 MG/DL (70-110)
[2017-09-09] MEDS: GlipiZIDE 5 MG TABLET PO SCH ×2 (06:40→08:47)
[2017-09-09 07:28] LABS: CALCIUM, TOTAL 9.3 mg/dL (8.8-10.5); CREATININE 1.27 mg/dL (0.60-1.30); POTASSIUM 3.7 mmol/L (3.5-5.1)
[2017-09-09 08:16] VITALS: BP 181/104
[2017-09-09] MEDS: LISINOPRIL 20 MG TABLET PO SCH (08:44)
[2017-09-09] MEDS: ESCITALOPRAM OXALATE 10 MG TABLET PO SCH (08:47)
[2017-09-09] MEDS: HydrALAZINE HCL 25 MG TABLET PO SCH ×3 (08:47→16:19)
[2017-09-09 09:15] VITALS: BP 143/85
[2017-09-09 16:32] LABS: GLUCOMETER DEV NAME(LOC) 3EX 1; GLUCOSE,POINT OF CARE 61 MG/DL (70-110)
[2017-09-09 16:42] LABS: GLUCOMETER DEV NAME(LOC) 3EX 1; GLUCOSE,POINT OF CARE 67 MG/DL (70-110)
[2017-09-09 17:17] VITALS: BP 164/90
[2017-09-09 17:17] LABS: GLUCOMETER DEV NAME(LOC) 3EX 1; GLUCOSE,POINT OF CARE 127 MG/DL (70-110)
[2017-09-09] MEDS: RisperiDONE 0.5 MG TABLET PO SCH (20:35)
[2017-09-09] MEDS: SIMVASTATIN 20 MG TABLET PO SCH (20:35)
[2017-09-09] MEDS: DiphenhydrAMINE HCL 25 MG CAPSULE PO PRN (20:36)
[2017-09-10 05:22] VITALS: BP 152/95
[2017-09-10 05:22] LABS: GLUCOMETER DEV NAME(LOC) 3EI B; GLUCOSE,POINT OF CARE 90 MG/DL (70-110)
[2017-09-10 08:00] VITALS: BP 178/102
[2017-09-10] MEDS: HydrALAZINE HCL 25 MG TABLET PO SCH ×3 (08:45→17:11)
[2017-09-10] MEDS: ESCITALOPRAM OXALATE 10 MG TABLET PO SCH (08:46)
[2017-09-10] MEDS: LISINOPRIL 20 MG TABLET PO SCH (08:46)
[2017-09-10 12:34] VITALS: BP 124/84
[2017-09-10] MEDS: DiphenhydrAMINE HCL 25 MG CAPSULE PO PRN (14:12)
[2017-09-10 17:09] VITALS: BP 143/70
[2017-09-10] MEDS: RisperiDONE 0.5 MG TABLET PO SCH (20:36)
[2017-09-10 22:03] LABS: GLUCOMETER DEV NAME(LOC) 3EX 1; GLUCOSE,POINT OF CARE 104 MG/DL (70-110)
[2017-09-11 05:28] LABS: GLUCOMETER DEV NAME(LOC) 3EI B; GLUCOSE,POINT OF CARE 115 MG/DL (70-110)
[2017-09-11 05:40] VITALS: BP 135/75
[2017-09-11 08:00] VITALS: BP 152/92
[2017-09-11] MEDS: DiphenhydrAMINE HCL 25 MG CAPSULE PO PRN (08:13)
[2017-09-11] MEDS: HydrALAZINE HCL 25 MG TABLET PO SCH ×3 (08:28→16:59)
[2017-09-11] MEDS: ESCITALOPRAM OXALATE 10 MG TABLET PO SCH (08:28)
[2017-09-11] MEDS: RisperiDONE 0.5 MG TABLET PO SCH ×2 (08:29→20:07)
[2017-09-11] MEDS: LISINOPRIL 20 MG TABLET PO SCH (08:29)
[2017-09-11 11:10] VITALS: BP 126/60
[2017-09-11 16:38] LABS: GLUCOMETER DEV NAME(LOC) 3EI B; GLUCOSE,POINT OF CARE 117 MG/DL (70-110)
[2017-09-11 18:48] VITALS: BP 137/81
[2017-09-11] MEDS ORDERED: SIMVASTATIN 20 MG TABLET PO SCH (21:00)
[2017-09-11] MEDS: ZOLPIDEM TARTRATE 10 MG TABLET PO PRN (22:18)
[2017-09-12 05:37] LABS: GLUCOMETER DEV NAME(LOC) 3EI B; GLUCOSE,POINT OF CARE 100 MG/DL (70-110)
[2017-09-12] MEDS: ESCITALOPRAM OXALATE 10 MG TABLET PO SCH (08:12)
[2017-09-12] MEDS: RisperiDONE 0.5 MG TABLET PO SCH (08:13)
[2017-09-12] MEDS: HydrALAZINE HCL 25 MG TABLET PO SCH ×2 (08:13→12:45)
[2017-09-12] MEDS: LISINOPRIL 20 MG TABLET PO SCH (08:13)
[2017-09-12 09:07] VITALS: BP 163/101
[2017-09-12] MEDS: DiphenhydrAMINE HCL 25 MG CAPSULE PO PRN (11:10)
[2017-09-12] MEDS ORDERED: ESCI10TA54 PO (11:27)
[2017-09-12] MEDS ORDERED: RISP.5 PO (11:27)
[2017-09-12] MEDS ORDERED: LISI-662 PO (11:53)
[2017-09-12] MEDS ORDERED: HYDR25TA84 PO (11:53)
[2017-09-12] MEDS ORDERED: HYDROCORTISONE 1% 30 GM OINTMENT TP PRN (12:15)
== END 2017-09-12 15:00 | disposition home or self-care (01) | DRG 885 ==
LOC: EMS 19:34 → 3EX 09-05 13:15
DX: F20.0 Paranoid schizophrenia (principal); E11.22 Type 2 diabetes mellitus with diabetic chronic kidney disease; E11.649 Type 2 diabetes mellitus with hypoglycemia without coma; D64.9 Anemia, unspecified; E78.00 Pure hypercholesterolemia, unspecified; E78.5 Hyperlipidemia, unspecified; F17.210 Nicotine dependence, cigarettes, uncomplicated; J44.9 Chronic obstructive pulmonary disease, unspecified; M19.90 Unspecified osteoarthritis, unspecified site; Z28.21 Immunization not carried out because of patient refusal; F12.90 Cannabis use, unspecified, uncomplicated; I12.9 Hypertensive chronic kidney disease with stage 1 through stage 4 chronic kidney disease, or unspecified chronic kidney disease; I25.10 Atherosclerotic heart disease of native coronary artery without angina pectoris; K21.9 Gastro-esophageal reflux disease without esophagitis; N18.3 Chronic kidney disease, stage 3 (moderate); Z79.899 Other long term (current) drug therapy; Z86.73 Personal history of transient ischemic attack (TIA), and cerebral infarction without residual deficits; Z90.710 Acquired absence of both cervix and uterus; F41.9 Anxiety disorder, unspecified
CPT/HCPCS: 82962; 83036; 99285; 99406; G0480

== ENCOUNTER 2017-11-17 14:36 | Inpatient (IN) | payer OTHER, MEDICAID ==
[~2017-11-17] VITALS: Ht 162.6 cm; Wt 61.2 kg
[~2017-11-17 14:36] MED LIST changes: -BACL10TA PO; -CARV25 PO; -CLOP75 PO; -DULO60CA44 PO; -ESCI10TA PO; -HYDR-309 PO; +HYDR25TA84 PO; -IPRA4AER IH; -ISOS30TA6 PO; +METF500T6 PO; -MOM30 PO; -NTP TD; +PARO20TA24 PO
[2017-11-17 16:36] LABS: BASOPHILS % (AUTO) 0.3 % (0.0-2.0); EOSINOPHILS % (AUTO) 2.9 % (1.0-6.0); HEMATOCRIT 31.9 % (36-46); LYMPHOCYTES # (AUTO) 2.2 K/uL (1.0-4.8); LYMPHOCYTES % (AUTO) 29.1 % (22.0-44.0); MEAN CORPUSCULAR HGB CONC 34.6 G/dL (31.0-37.0); MEAN CORPUSCULAR VOLUME 89 fL (80-100); MONOCYTES # (AUTO) 0.7 K/uL (0.1-1.0); MONOCYTES % (AUTO) 9.2 % (2.0-9.0); NEUTROPHILS # (AUTO) 4.5 K/uL (1.8-7.7); NEUTROPHILS % (AUTO) 58.5 % (40.0-70.0); PLATELET COUNT (AUTO) 276 K/uL (150-450); RED BLOOD CELL COUNT(AUTO) 3.57 MIL/uL (4.00-5.20); RED CELL DISTRIBUTION WIDTH 16.2 % (11.5-14.5)
[2017-11-17 16:41] LABS: ANION GAP 11 mmol/L (8-16); CARBON DIOXIDE 22 mmol/L (22-29); CHLORIDE 101 mmol/L (98-107); GLOMERULAR FILTR. RATE CALC 39 mL/min (>60); GLUCOSE,RANDOM 103 mg/dL (70-110); POTASSIUM 3.7 mmol/L (3.5-5.1); SODIUM SERUM 134 mmol/L (136-145); UREA NITROGEN, BLOOD 37 mg/dL (7-18)
[2017-11-17 16:42] LABS: CALCIUM, TOTAL 9.3 mg/dL (8.8-10.5)
[2017-11-17 16:47] LABS: ALANINE AMINOTRANSFERASE 30 U/L (12-78); ALBUMIN 4.2 g/dL (3.4-5.0); ALKALINE PHOSPHATASE 99 U/L (46-116); ASPARTATE AMINOTRANSFERASE 23 U/L (15-37); BILIRUBIN,TOTAL 0.4 mg/dL (0.1-1.0); TOTAL PROTEIN, SERUM 8.6 g/dL (6.4-8.2)
[2017-11-17] MEDS ORDERED: HydrALAZINE HCL 20 MG/ML VIAL IVP ONE (18:45)
[2017-11-17] MEDS ORDERED: AmLODIPine BESYLATE 5 MG TABLET PO ONE (18:45)
[2017-11-17] MEDS ORDERED: SODIUM CHLORIDE 0.9% 1,000 ML IV ONE ×2 (18:45→21:45)
[2017-11-17 19:44] LABS: APPEARANCE,URINE CLEAR (CLEAR); BILIRUBIN,URINE NEGATIVE (NEGATIVE); GLUCOSE, URINE (UA) NEGATIVE (NEGATIVE); KETONES,URINE TRACE mg/dL (NEGATIVE); LEUKOCYTE ESTERASE ,URINE SMALL (NEGATIVE); NITRATE,URINE NEGATIVE (NEGATIVE); OCCULT BLOOD,URINE NEGATIVE (NEGATIVE); PROTEIN,URINE SEE CONFIRM (NEGATIVE); UROBILINOGEN,URINE 0.2 mg/dL (<=1.0)
[2017-11-17 20:05] LABS: AMPHET/METH SCREEN,URINE NEGATIVE (NEGATIVE); BARBITURATE SCREEN, URINE NEGATIVE (NEGATIVE); BENZODIAZEPINES SCREEN,URINE NEGATIVE (NEGATIVE); CANNABINOID SCREEN,URINE NEGATIVE (NEGATIVE); COCAINE SCREEN,URINE NEGATIVE (NEGATIVE); METHADONE SCREEN, URINE NEGATIVE (NEGATIVE); OPIATE SCREEN,URINE NEGATIVE (NEGATIVE)
[2017-11-17 20:08] LABS: PHENCYCLIDINE SCREEN,URINE NEGATIVE (NEGATIVE)
[2017-11-17 20:59] LABS: SULFOSALICYLIC ACID,URINE 4+ (Negative)
[2017-11-17 21:03] LABS: RBC,URINE None Seen /HPF (0-2)
[2017-11-17 21:04] LABS: BACTERIA,URINE None Seen /HPF (None Seen); SQUAMOUS EPITHELIAL CELL,UR Few /LPF (None Seen)
[2017-11-17] MEDS ORDERED: LABETALOL HCL 5 MG/ML 20 ML VIAL IVP ONE (21:45)
[2017-11-17] MEDS ORDERED: CloNIDine HCL 0.2 MG TABLET PO ONE (22:30)
[2017-11-17] MEDS ORDERED: DiphenhydrAMINE HCL 50 MG/ML VIAL IM ONE (23:15)
[2017-11-17] MEDS ORDERED: HALOPERIDOL LACTATE 5 MG/ML VIAL IM ONE (23:15)
[2017-11-17] MEDS ORDERED: LORazepam 2 MG/ML VIAL IM ONE (23:15)
[2017-11-18] MEDS ORDERED: ZOLPIDEM TARTRATE 10 MG TABLET PO PRN (01:00)
[2017-11-18] MEDS ORDERED: LORazepam 2 MG TABLET PO PRN (01:00)
[2017-11-18] MEDS ORDERED: HALOPERIDOL 5 MG TABLET PO PRN (01:00)
[2017-11-18] MEDS ORDERED: PNEUMOCOCCAL VACCINE POLYVALENT 0.5 ML VIAL [PPSV23] IM ONE (03:15)
[2017-11-18 09:00] VITALS: BP 145/94
[2017-11-18] MEDS ORDERED: AMLO-512 PO (12:57)
[2017-11-18] MEDS: NICOTINE 14 MG/24 HOUR PATCH TD SCH (16:15)
[2017-11-18] MEDS: MetFORMIN HCL 500 MG TABLET PO SCH (17:30)
[2017-11-18 18:47] VITALS: BP 138/89
[2017-11-18] MEDS: QUEtiapine FUMARATE 100 MG TABLET PO SCH (20:49)
[2017-11-18] MEDS: SIMVASTATIN 20 MG TABLET PO SCH (20:49)
[2017-11-18] MEDS: HydrALAZINE HCL 25 MG TABLET PO SCH (20:49)
[2017-11-19] MEDS: MetFORMIN HCL 500 MG TABLET PO SCH ×2 (07:01→17:30)
[2017-11-19] MEDS: PARoxetine HCL 20 MG TABLET PO SCH (08:32)
[2017-11-19] MEDS: HydrALAZINE HCL 25 MG TABLET PO SCH ×2 (08:32→20:09)
[2017-11-19] MEDS: QUEtiapine FUMARATE 25 MG TABLET PO SCH (08:32)
[2017-11-19] MEDS: AmLODIPine BESYLATE 10 MG TABLET PO SCH (08:32)
[2017-11-19] MEDS: NICOTINE 14 MG/24 HOUR PATCH TD SCH (08:32)
[2017-11-19 08:55] VITALS: BP 132/78
[2017-11-19 08:58] LABS: CALCIUM, TOTAL 8.6 mg/dL (8.8-10.5); CHOL/HDL RATIO 2.8 (3.9-5.7); CREATININE 1.39 mg/dL (0.60-1.30); POTASSIUM 3.9 mmol/L (3.5-5.1)
[2017-11-19 09:03] LABS: HEMOGLOBIN A1C 5.5 % (4.5-6.2)
[2017-11-19] MEDS: MUPIROCIN CALCIUM 2% 22 GM OINTMENT NASAL SCH (17:22)
[2017-11-19 18:38] VITALS: BP 137/37
[2017-11-19] MEDS: SIMVASTATIN 20 MG TABLET PO SCH (20:09)
[2017-11-19] MEDS: QUEtiapine FUMARATE 100 MG TABLET PO SCH (20:09)
[2017-11-20] MEDS: MetFORMIN HCL 500 MG TABLET PO SCH ×2 (06:34→17:27)
[2017-11-20] MEDS: PARoxetine HCL 20 MG TABLET PO SCH (08:17)
[2017-11-20] MEDS: QUEtiapine FUMARATE 25 MG TABLET PO SCH (08:18)
[2017-11-20] MEDS: AmLODIPine BESYLATE 10 MG TABLET PO SCH (08:18)
[2017-11-20] MEDS: NICOTINE 14 MG/24 HOUR PATCH TD SCH (08:19)
[2017-11-20] MEDS: MUPIROCIN CALCIUM 2% 22 GM OINTMENT NASAL SCH ×2 (08:19→16:44)
[2017-11-20] MEDS: HydrALAZINE HCL 25 MG TABLET PO SCH ×2 (08:20→20:20)
[2017-11-20] MEDS ORDERED: PALIPERIDONE PALMITATE 234 MG/1.5 ML SYRINGE IM ONE (09:15)
[2017-11-20] MEDS ORDERED: TraMADol HCL 50 MG TABLET PO PRN (10:00)
[2017-11-20 10:16] VITALS: BP 131/87
[2017-11-20 13:24] VITALS: BP 126/79
[2017-11-20] MEDS: GABAPENTIN 100 MG CAPSULE PO SCH (16:45)
[2017-11-20 17:36] VITALS: BP 147/86
[2017-11-20] MEDS: SIMVASTATIN 20 MG TABLET PO SCH (20:20)
[2017-11-20] MEDS: QUEtiapine FUMARATE 100 MG TABLET PO SCH (20:20)
[2017-11-21] MEDS: IBUPROFEN 400 MG TABLET PO PRN ×2 (05:05→16:54)
[2017-11-21] MEDS: MetFORMIN HCL 500 MG TABLET PO SCH ×2 (06:58→16:47)
[2017-11-21] MEDS: AmLODIPine BESYLATE 10 MG TABLET PO SCH (09:10)
[2017-11-21] MEDS: HydrALAZINE HCL 25 MG TABLET PO SCH ×2 (09:10→20:44)
[2017-11-21] MEDS: MUPIROCIN CALCIUM 2% 22 GM OINTMENT NASAL SCH ×2 (09:10→16:47)
[2017-11-21] MEDS: GABAPENTIN 100 MG CAPSULE PO SCH ×3 (09:10→16:47)
[2017-11-21] MEDS: QUEtiapine FUMARATE 25 MG TABLET PO SCH (09:10)
[2017-11-21] MEDS: PARoxetine HCL 20 MG TABLET PO SCH (09:12)
[2017-11-21] MEDS: NICOTINE 14 MG/24 HOUR PATCH TD SCH (09:12)
[2017-11-21 09:58] VITALS: BP 127/86
[2017-11-21 16:45] VITALS: BP 129/83
[2017-11-21 17:45] VITALS: BP 167/104
[2017-11-21 20:00] VITALS: BP 180/109
[2017-11-21] MEDS: SIMVASTATIN 20 MG TABLET PO SCH (20:44)
[2017-11-21] MEDS: QUEtiapine FUMARATE 100 MG TABLET PO SCH (20:44)
[2017-11-21] MEDS ORDERED: DOCUSATE SODIUM 100 MG CAPSULE PO PRN (22:30)
[2017-11-22] VITALS: BP 140/80
[2017-11-22] MEDS: MetFORMIN HCL 500 MG TABLET PO SCH ×2 (07:15→16:07)
[2017-11-22] MEDS: PARoxetine HCL 20 MG TABLET PO SCH (09:32)
[2017-11-22] MEDS: QUEtiapine FUMARATE 25 MG TABLET PO SCH (09:33)
[2017-11-22] MEDS: GABAPENTIN 100 MG CAPSULE PO SCH ×3 (09:33→16:07)
[2017-11-22] MEDS: HydrALAZINE HCL 25 MG TABLET PO SCH ×3 (09:34→16:06)
[2017-11-22] MEDS: NICOTINE 14 MG/24 HOUR PATCH TD SCH (09:34)
[2017-11-22] MEDS: MUPIROCIN CALCIUM 2% 22 GM OINTMENT NASAL SCH ×2 (09:34→16:06)
[2017-11-22] MEDS: AmLODIPine BESYLATE 10 MG TABLET PO SCH (09:34)
[2017-11-22 13:02] VITALS: BP 146/77
[2017-11-22 16:13] VITALS: BP 154/90
[2017-11-22] MEDS: IBUPROFEN 400 MG TABLET PO PRN (16:13)
[2017-11-22] MEDS: QUEtiapine FUMARATE 100 MG TABLET PO SCH (20:18)
[2017-11-22] MEDS: SIMVASTATIN 20 MG TABLET PO SCH (20:18)
[2017-11-23] MEDS: MetFORMIN HCL 500 MG TABLET PO SCH ×2 (07:08→16:13)
[2017-11-23] MEDS: MUPIROCIN CALCIUM 2% 22 GM OINTMENT NASAL SCH ×2 (07:59→16:13)
[2017-11-23] MEDS: GABAPENTIN 100 MG CAPSULE PO SCH ×3 (07:59→16:13)
[2017-11-23] MEDS: PARoxetine HCL 20 MG TABLET PO SCH (07:59)
[2017-11-23] MEDS: HydrALAZINE HCL 25 MG TABLET PO SCH ×3 (07:59→16:13)
[2017-11-23] MEDS: QUEtiapine FUMARATE 25 MG TABLET PO SCH (07:59)
[2017-11-23] MEDS: NICOTINE 14 MG/24 HOUR PATCH TD SCH (08:04)
[2017-11-23 08:05] VITALS: BP 156/97
[2017-11-23] MEDS: AmLODIPine BESYLATE 10 MG TABLET PO SCH (09:05)
[2017-11-23 17:00] VITALS: BP 142/92
[2017-11-23] MEDS: SIMVASTATIN 20 MG TABLET PO SCH (20:54)
[2017-11-23] MEDS: QUEtiapine FUMARATE 100 MG TABLET PO SCH (20:54)
[2017-11-24] MEDS: MetFORMIN HCL 500 MG TABLET PO SCH ×2 (06:55→16:38)
[2017-11-24 07:09] LABS: CALCIUM, TOTAL 8.8 mg/dL (8.8-10.5); CREATININE 1.22 mg/dL (0.60-1.30); POTASSIUM 4.1 mmol/L (3.5-5.1)
[2017-11-24 07:15] LABS: HEMOGLOBIN A1C 5.8 % (4.5-6.2)
[2017-11-24 08:30] VITALS: BP 145/86
[2017-11-24] MEDS: AmLODIPine BESYLATE 10 MG TABLET PO SCH (08:34)
[2017-11-24] MEDS: HydrALAZINE HCL 25 MG TABLET PO SCH ×3 (08:34→16:38)
[2017-11-24] MEDS: PARoxetine HCL 20 MG TABLET PO SCH (08:34)
[2017-11-24] MEDS: GABAPENTIN 100 MG CAPSULE PO SCH ×3 (08:34→16:38)
[2017-11-24] MEDS: NICOTINE 14 MG/24 HOUR PATCH TD SCH (08:36)
[2017-11-24] MEDS: QUEtiapine FUMARATE 25 MG TABLET PO SCH (08:36)
[2017-11-24] MEDS ORDERED: PALIPERIDONE PALMITATE 156 MG/ML SYRINGE IM ONE (09:00)
[2017-11-24] MEDS: MUPIROCIN CALCIUM 2% 22 GM OINTMENT NASAL SCH ×2 (10:32→16:38)
[2017-11-24 18:36] VITALS: BP 153/91
[2017-11-24] MEDS: SIMVASTATIN 20 MG TABLET PO SCH (20:20)
[2017-11-24] MEDS: QUEtiapine FUMARATE 100 MG TABLET PO SCH (20:20)
[2017-11-25] MEDS: MetFORMIN HCL 500 MG TABLET PO SCH (07:07)
[2017-11-25 08:47] VITALS: BP 147/84
[2017-11-25] MEDS: AmLODIPine BESYLATE 10 MG TABLET PO SCH (09:13)
[2017-11-25] MEDS: GABAPENTIN 100 MG CAPSULE PO SCH ×2 (09:13→12:26)
[2017-11-25] MEDS: QUEtiapine FUMARATE 25 MG TABLET PO SCH (09:13)
[2017-11-25] MEDS: MUPIROCIN CALCIUM 2% 22 GM OINTMENT NASAL SCH (09:13)
[2017-11-25] MEDS: NICOTINE 14 MG/24 HOUR PATCH TD SCH (09:14)
[2017-11-25] MEDS: PARoxetine HCL 20 MG TABLET PO SCH (09:14)
[2017-11-25] MEDS: HydrALAZINE HCL 25 MG TABLET PO SCH ×2 (09:44→12:26)
[2017-11-25] MEDS ORDERED: MUPI1OIN4 NS (10:01)
== END 2017-11-25 12:30 | disposition home or self-care (01) | DRG 885 ==
LOC: EMS 15:01 → 3EX 11-18 01:00
PROVIDERS: ADMIT Psychiatry & Neurology Psychiatry; ATTEND Psychiatry & Neurology Psychiatry
DX: F20.0 Paranoid schizophrenia (principal); Z28.21 Immunization not carried out because of patient refusal; K21.9 Gastro-esophageal reflux disease without esophagitis; E78.5 Hyperlipidemia, unspecified; Z86.73 Personal history of transient ischemic attack (TIA), and cerebral infarction without residual deficits; G40.909 Epilepsy, unspecified, not intractable, without status epilepticus; I25.10 Atherosclerotic heart disease of native coronary artery without angina pectoris; E11.22 Type 2 diabetes mellitus with diabetic chronic kidney disease; E78.00 Pure hypercholesterolemia, unspecified; F17.200 Nicotine dependence, unspecified, uncomplicated; F31.9 Bipolar disorder, unspecified; I12.9 Hypertensive chronic kidney disease with stage 1 through stage 4 chronic kidney disease, or unspecified chronic kidney disease; N18.9 Chronic kidney disease, unspecified; Z87.440 Personal history of urinary (tract) infections; Z90.710 Acquired absence of both cervix and uterus; Z91.14 Patient's other noncompliance with medication regimen; K75.9 Inflammatory liver disease, unspecified; Z71.6 Tobacco abuse counseling; D72.829 Elevated white blood cell count, unspecified
CPT/HCPCS: 83036; 87081; 87086; 99285; G0480; J0360; J1200; J1630; J2060; J3490; J7030

== ENCOUNTER 2018-07-24 12:22 | Emergency (ER) | payer MEDICARE, MEDICAID ==
[~2018-07-24] VITALS: Ht 162.6 cm; Wt 81.8 kg
[~2018-07-24 12:22] MED LIST changes: -AMLO-511 PO; +AMLO-512 PO; +METF-960 PO; -METF500T6 PO; +MUPI1OIN4 NS
[2018-07-24] MEDS ORDERED: LISI-662 PO (12:48)
[2018-07-24 14:12] LABS: BASOPHILS % (AUTO) 1.1 % (0.0-2.0); EOSINOPHILS % (AUTO) 2.5 % (1.0-6.0); HEMATOCRIT 35.1 % (36-46); HEMOGLOBIN 11.6 g/dL (12.0-16.0); LYMPHOCYTES # (AUTO) 1.9 K/uL (1.0-4.8); LYMPHOCYTES % (AUTO) 37.2 % (22.0-44.0); MEAN CORPUSCULAR HGB CONC 33.1 G/dL (31.0-37.0); MEAN CORPUSCULAR VOLUME 91 fL (80-100); MONOCYTES # (AUTO) 0.4 K/uL (0.1-1.0); MONOCYTES % (AUTO) 7.5 % (2.0-9.0); NEUTROPHILS # (AUTO) 2.7 K/uL (1.8-7.7); NEUTROPHILS % (AUTO) 51.7 % (40.0-70.0); PLATELET COUNT (AUTO) 207 K/uL (150-450); RED BLOOD CELL COUNT(AUTO) 3.88 MIL/uL (4.00-5.20)
[2018-07-24 14:30] LABS: CALCIUM, TOTAL 9.4 mg/dL (8.8-10.5); CREATININE 1.22 mg/dL (0.60-1.30)
[2018-07-24 14:36] LABS: ALBUMIN 3.5 g/dL (3.4-5.0); BILIRUBIN,TOTAL 0.4 mg/dL (0.1-1.0); TOTAL PROTEIN, SERUM 7.2 g/dL (6.4-8.2)
[2018-07-24 15:09] VITALS: BP 153/93
[2018-07-24 15:54] LABS: APPEARANCE,URINE CLEAR (CLEAR); BILIRUBIN,URINE NEGATIVE (NEGATIVE); GLUCOSE, URINE (UA) NEGATIVE (NEGATIVE); KETONES,URINE NEGATIVE (NEGATIVE); LEUKOCYTE ESTERASE ,URINE MODERATE (NEGATIVE); NITRATE,URINE NEGATIVE (NEGATIVE); OCCULT BLOOD,URINE NEGATIVE (NEGATIVE); PROTEIN,URINE SEE CONFIRM (NEGATIVE); UROBILINOGEN,URINE 0.2 mg/dL (<=1.0)
[2018-07-24 16:10] LABS: SULFOSALICYLIC ACID,URINE 4+ (Negative)
[2018-07-24 16:11] LABS: RBC,URINE None Seen /HPF (0-2); SQUAMOUS EPITHELIAL CELL,UR Few /LPF (None Seen)
[2018-07-24 16:15] LABS: BACTERIA,URINE Rare /HPF (None Seen)
== END 2018-07-24 15:31 | disposition home or self-care (01) ==
LOC: EMS 12:23
DX: J44.1 Chronic obstructive pulmonary disease with (acute) exacerbation (principal); F17.210 Nicotine dependence, cigarettes, uncomplicated; F31.9 Bipolar disorder, unspecified; I25.10 Atherosclerotic heart disease of native coronary artery without angina pectoris; E11.9 Type 2 diabetes mellitus without complications; K21.9 Gastro-esophageal reflux disease without esophagitis; E78.00 Pure hypercholesterolemia, unspecified; I10 Essential (primary) hypertension; F20.9 Schizophrenia, unspecified; Z90.710 Acquired absence of both cervix and uterus; Z95.1 Presence of aortocoronary bypass graft; Z79.899 Other long term (current) drug therapy; Z79.84 Long term (current) use of oral hypoglycemic drugs
CPT/HCPCS: 87086; 99406

== ENCOUNTER 2018-08-12 03:28 | Inpatient (IN) | payer MEDICARE, MEDICAID ==
[~2018-08-12] VITALS: Ht 157.5 cm; Wt 67.0 kg
[~2018-08-12 03:28] MED LIST changes: +LISI-662 PO; -MUPI1OIN4 NS
[2018-08-12] MEDS ORDERED: SODIUM CHLORIDE 0.9% 1,950 ML IV ONE (04:13)
[2018-08-12] MEDS ORDERED: 0.9% SODIUM CHLORIDE 10 ML SYRINGE IVP PRN ×2 (04:15→07:00)
[2018-08-12 04:29] LABS: GLUCOSE,POINT OF CARE 108 MG/DL (70-110)
[2018-08-12 05:39] LABS: BASOPHILS % (AUTO) 0.5 % (0.0-2.0); EOSINOPHILS % (AUTO) 1.5 % (1.0-6.0); HEMATOCRIT 36.1 % (36-46); HEMOGLOBIN 12.2 g/dL (12.0-16.0); LYMPHOCYTES # (AUTO) 1.8 K/uL (1.0-4.8); LYMPHOCYTES % (AUTO) 18.1 % (22.0-44.0); MEAN CORPUSCULAR HEMOGLOBIN 30.2 pg (26.0-34.0); MEAN CORPUSCULAR HGB CONC 33.8 G/dL (31.0-37.0); MEAN CORPUSCULAR VOLUME 89 fL (80-100); MONOCYTES # (AUTO) 0.7 K/uL (0.1-1.0); NEUTROPHILS # (AUTO) 7.1 K/uL (1.8-7.7); NEUTROPHILS % (AUTO) 72.9 % (40.0-70.0); PLATELET COUNT (AUTO) 267 K/uL (150-450); RED BLOOD CELL COUNT(AUTO) 4.04 MIL/uL (4.00-5.20); RED CELL DISTRIBUTION WIDTH 17.4 % (11.5-14.5)
[2018-08-12 05:49] LABS: APPEARANCE,URINE CLOUDY (CLEAR); GLUCOSE, URINE (UA) NEGATIVE (NEGATIVE); KETONES,URINE 15 mg/dL (NEGATIVE); LEUKOCYTE ESTERASE ,URINE NEGATIVE (NEGATIVE); NITRATE,URINE NEGATIVE (NEGATIVE); OCCULT BLOOD,URINE LARGE (NEGATIVE); PH,URINE 5.5 (5.0-8.0); PROTEIN,URINE SEE CONFIRM (NEGATIVE)
[2018-08-12 05:55] LABS: AMPHET/METH SCREEN,URINE NEGATIVE (NEGATIVE); BARBITURATE SCREEN, URINE NEGATIVE (NEGATIVE); BENZODIAZEPINES SCREEN,URINE NEGATIVE (NEGATIVE); CANNABINOID SCREEN,URINE POSITIVE (NEGATIVE); COCAINE SCREEN,URINE NEGATIVE (NEGATIVE); METHADONE SCREEN, URINE NEGATIVE (NEGATIVE); OPIATE SCREEN,URINE NEGATIVE (NEGATIVE)
[2018-08-12 05:56] LABS: BILIRUBIN,URINE PRELIM. POSITIVE (NEGATIVE); PHENCYCLIDINE SCREEN,URINE NEGATIVE (NEGATIVE)
[2018-08-12 05:57] LABS: B-TYPE NATRIURETIC PEPTIDE 143 pg/mL (0-100)
[2018-08-12 05:58] LABS: LACTIC ACID 0.9 mmol/L (0.4-2.0)
[2018-08-12 06:04] LABS: ANION GAP 17 mmol/L (8-16); CALCIUM, TOTAL 10.4 mg/dL (8.8-10.5); CARBON DIOXIDE 19 mmol/L (22-29); CHLORIDE 108 mmol/L (98-107); CREATININE 1.27 mg/dL (0.60-1.30); GLOMERULAR FILTR. RATE CALC 51 mL/min (>60); GLUCOSE,RANDOM 91 mg/dL (70-110); POTASSIUM 3.4 mmol/L (3.5-5.1); SODIUM SERUM 144 mmol/L (136-145); UREA NITROGEN, BLOOD 25 mg/dL (7-18)
[2018-08-12 06:07] LABS: ALANINE AMINOTRANSFERASE 20 U/L (12-78); ALBUMIN 4.4 g/dL (3.4-5.0); ALKALINE PHOSPHATASE 89 U/L (46-116); ASPARTATE AMINOTRANSFERASE 27 U/L (15-37); BILIRUBIN,TOTAL 0.8 mg/dL (0.1-1.0); TOTAL PROTEIN, SERUM 8.3 g/dL (6.4-8.2)
[2018-08-12] MEDS ORDERED: HydrALAZINE HCL 20 MG/ML VIAL IVP ONE ×2 (06:15→08:00)
[2018-08-12] MEDS ORDERED: NITROGLYCERIN 2% (1 GM=INCH) PACKET TP ONE (06:15)
[2018-08-12] MEDS ORDERED: ASPIRIN 81 MG CHEWABLE TABLET PO ONE (06:30)
[2018-08-12] MEDS ORDERED: NITROGLYCERIN 0.4 MG SUBLINGUAL TABLET #25 SL ONE (06:30)
[2018-08-12 06:48] LABS: BACTERIA,URINE Few /HPF (None Seen); WBC,URINE 0-2 /HPF (0-5)
[2018-08-12 06:49] LABS: SQUAMOUS EPITHELIAL CELL,UR Few /LPF (None Seen); SULFOSALICYLIC ACID,URINE 4+ (Negative)
[2018-08-12] MEDS ORDERED: ONDANSETRON HCL 4 MG/2 ML VIAL IVP PRN (07:00)
[2018-08-12] MEDS ORDERED: LORazepam 2 MG/ML VIAL IVP ONE (07:00)
[2018-08-12] MEDS ORDERED: ACETAMINOPHEN 325 MG TABLET PO PRN (07:00)
[2018-08-12] MEDS ORDERED: DiphenhydrAMINE HCL 50 MG/ML VIAL IVP ONE (07:00)
[2018-08-12 07:38] LABS: GLUCOSE,POINT OF CARE 111 MG/DL (70-110)
[2018-08-12 15:53] LABS: GLUCOSE,POINT OF CARE 88 MG/DL (70-110)
[2018-08-12] MEDS ORDERED: DEXTROSE 5%-0.9% SODIUM CHL 1,000 ML IV ONE (16:15)
[2018-08-12] MEDS ORDERED: DEXTROSE 5%-0.45% SODIUM CHL 1,000 ML IV ONE (16:30)
[2018-08-12 21:54] VITALS: BP 123/67
[2018-08-13 00:01] VITALS: BP 117/70
[2018-08-13 04:03] VITALS: BP 133/81
[2018-08-13 06:12] LABS: BASOPHILS % (AUTO) 0.5 % (0.0-2.0); EOSINOPHILS % (AUTO) 3.6 % (1.0-6.0); HEMATOCRIT 33.9 % (36-46); HEMOGLOBIN 11.6 g/dL (12.0-16.0); LYMPHOCYTES % (AUTO) 28.6 % (22.0-44.0); MEAN CORPUSCULAR HEMOGLOBIN 30.5 pg (26.0-34.0); MEAN CORPUSCULAR HGB CONC 34.3 G/dL (31.0-37.0); MEAN CORPUSCULAR VOLUME 89 fL (80-100); MONOCYTES # (AUTO) 0.6 K/uL (0.1-1.0); MONOCYTES % (AUTO) 8.7 % (2.0-9.0); NEUTROPHILS # (AUTO) 4.2 K/uL (1.8-7.7); NEUTROPHILS % (AUTO) 58.6 % (40.0-70.0); PLATELET COUNT (AUTO) 241 K/uL (150-450); RED BLOOD CELL COUNT(AUTO) 3.82 MIL/uL (4.00-5.20); RED CELL DISTRIBUTION WIDTH 17.7 % (11.5-14.5)
[2018-08-13 06:26] LABS: ALBUMIN 3.3 g/dL (3.4-5.0); BILIRUBIN,TOTAL 0.4 mg/dL (0.1-1.0); CALCIUM, TOTAL 9.6 mg/dL (8.8-10.5); CREATININE 1.28 mg/dL (0.60-1.30); POTASSIUM 3.5 mmol/L (3.5-5.1); TOTAL PROTEIN, SERUM 6.7 g/dL (6.4-8.2)
[2018-08-13 07:19] VITALS: BP 120/86
[2018-08-13 11:08] VITALS: BP 151/75
[2018-08-13] MEDS ORDERED: ONDANSETRON HCL 4 MG/2 ML VIAL IVP PRN (14:45)
[2018-08-13] MEDS ORDERED: ALBUTEROL SULFATE 2.5 MG/0.5 ML NEB SOLUTION NEB PRN (14:45)
[2018-08-13] MEDS ORDERED: PARoxetine HCL 20 MG TABLET PO ONE (14:45)
[2018-08-13] MEDS ORDERED: IPRATROPIUM BROMIDE 0.5 MG/2.5 ML NEB SOLUTION NEB PRN (14:45)
[2018-08-13] MEDS ORDERED: ZOLPIDEM TARTRATE 5 MG TABLET PO PRN (14:45)
[2018-08-13] MEDS ORDERED: ACETAMINOPHEN 325 MG TABLET PO PRN (14:45)
[2018-08-13] MEDS ORDERED: HYDROCODONE/ACETAMINOPHEN 5-325 MG TABLET PO PRN (14:45)
[2018-08-13] MEDS ORDERED: BISACODYL 10 MG RECTAL RECTAL SUPPOSITORY PR PRN (14:45)
[2018-08-13 15:18] VITALS: BP 123/74
[2018-08-13] MEDS: HydrALAZINE HCL 25 MG TABLET PO SCH ×2 (16:31→20:37)
[2018-08-13] MEDS: MORPHINE SULFATE 2 MG/ML SYRINGE IVP PRN (16:31)
[2018-08-13] MEDS: GABAPENTIN 100 MG CAPSULE PO SCH ×2 (16:31→20:37)
[2018-08-13] MEDS: HEPARIN SODIUM,PORCINE 5,000 UNITS/ML VIAL SQ SCH ×2 (16:32→23:42)
[2018-08-13 19:33] VITALS: BP 134/75
[2018-08-13] MEDS: DOCUSATE SODIUM 100 MG CAPSULE PO SCH (20:37)
[2018-08-13] MEDS: SIMVASTATIN 20 MG TABLET PO SCH (20:37)
[2018-08-13] MEDS: QUEtiapine FUMARATE 25 MG TABLET PO SCH (20:38)
[2018-08-14 00:02] VITALS: BP 111/70
[2018-08-14 04:52] VITALS: BP 126/61
[2018-08-14 07:21] VITALS: BP 135/80
[2018-08-14] MEDS: DOCUSATE SODIUM 100 MG CAPSULE PO SCH ×2 (09:00→21:00)
[2018-08-14] MEDS: PANTOPRAZOLE SODIUM 40 MG/VIAL IVP SCH (10:21)
[2018-08-14] MEDS: ASPIRIN 81 MG EC TABLET PO SCH (10:22)
[2018-08-14] MEDS: HEPARIN SODIUM,PORCINE 5,000 UNITS/ML VIAL SQ SCH ×2 (10:22→16:56)
[2018-08-14] MEDS: GABAPENTIN 100 MG CAPSULE PO SCH ×4 (10:22→21:12)
[2018-08-14] MEDS: HydrALAZINE HCL 25 MG TABLET PO SCH ×4 (10:23→21:12)
[2018-08-14] MEDS: MORPHINE SULFATE 2 MG/ML SYRINGE IVP PRN ×2 (10:41→21:30)
[2018-08-14] MEDS: MAGNESIUM HYDROXIDE SUSPENSION 30 ML UDCUP PO PRN (10:48)
[2018-08-14 11:45] VITALS: BP 143/68
[2018-08-14 15:01] VITALS: BP 135/74
[2018-08-14] MEDS ORDERED: GABA-529 PO (18:01)
[2018-08-14] MEDS ORDERED: HYDR25TA84 PO (18:03)
[2018-08-14] MEDS ORDERED: QUET25TA PO (18:05)
[2018-08-14] MEDS ORDERED: SIMV-260 PO (18:06)
[2018-08-14 20:35] VITALS: BP 128/76
[2018-08-14] MEDS: SIMVASTATIN 20 MG TABLET PO SCH ×2 (21:00→21:12)
[2018-08-14] MEDS: QUEtiapine FUMARATE 25 MG TABLET PO SCH (21:00)
[2018-08-15 00:27] VITALS: BP 126/70
[2018-08-15 04:50] VITALS: BP 146/76
[2018-08-15] MEDS: MORPHINE SULFATE 2 MG/ML SYRINGE IVP PRN ×2 (04:51→08:50)
[2018-08-15 07:11] VITALS: BP 142/74
[2018-08-15] MEDS: GABAPENTIN 100 MG CAPSULE PO SCH (08:47)
[2018-08-15] MEDS: DOCUSATE SODIUM 100 MG CAPSULE PO SCH (08:47)
[2018-08-15] MEDS: HydrALAZINE HCL 25 MG TABLET PO SCH (08:47)
[2018-08-15] MEDS: ASPIRIN 81 MG EC TABLET PO SCH (08:48)
[2018-08-15] MEDS: HEPARIN SODIUM,PORCINE 5,000 UNITS/ML VIAL SQ SCH ×2 (08:48)
[2018-08-15] MEDS: PANTOPRAZOLE SODIUM 40 MG/VIAL IVP SCH (08:49)
[2018-08-15] MEDS: MAGNESIUM HYDROXIDE SUSPENSION 30 ML UDCUP PO PRN (11:17)
[2018-08-15 11:28] VITALS: BP 143/90
== END 2018-08-15 11:45 | disposition home or self-care (01) | DRG 71 ==
LOC: EMS 03:28 → 5S 21:15
PROVIDERS: ADMIT Hospitalist; ATTEND Hospitalist
DX: G93.40 Encephalopathy, unspecified (principal); I16.1 Hypertensive emergency; G40.909 Epilepsy, unspecified, not intractable, without status epilepticus; Z86.73 Personal history of transient ischemic attack (TIA), and cerebral infarction without residual deficits; K21.9 Gastro-esophageal reflux disease without esophagitis; I25.10 Atherosclerotic heart disease of native coronary artery without angina pectoris; F20.9 Schizophrenia, unspecified; E78.00 Pure hypercholesterolemia, unspecified; E11.9 Type 2 diabetes mellitus without complications; K72.90 Hepatic failure, unspecified without coma; Z90.710 Acquired absence of both cervix and uterus; Z83.3 Family history of diabetes mellitus; Z82.49 Family history of ischemic heart disease and other diseases of the circulatory system; E78.5 Hyperlipidemia, unspecified; I11.9 Hypertensive heart disease without heart failure; F17.210 Nicotine dependence, cigarettes, uncomplicated; Z95.1 Presence of aortocoronary bypass graft
CPT/HCPCS: 51702; 70450; 70551; 83605; 84145; 87040; 93005; 93306; 93880; 95816; 96365; 96375; 96376; 99291; C9113; G0378; G0480; J0360; J1200; J1644; J2060; J2270

== ENCOUNTER 2018-12-17 18:27 | Inpatient (IN) | payer MEDICARE, MEDICAID ==
[~2018-12-17] VITALS: Ht 162.6 cm; Wt 71.0 kg
[~2018-12-17 18:27] MED LIST changes: -AMLO-512 PO; -LISI-662 PO; -METF-960 PO; -PARO20TA24 PO; -QUET100T PO
[2018-12-17 19:59] LABS: BASOPHILS % (AUTO) 0.5 % (0.0-2.0); EOSINOPHILS % (AUTO) 0.7 % (1.0-6.0); HEMATOCRIT 36.6 % (36-46); HEMOGLOBIN 12.2 g/dL (12.0-16.0); LYMPHOCYTES # (AUTO) 1.4 K/uL (1.0-4.8); LYMPHOCYTES % (AUTO) 14.8 % (22.0-44.0); MEAN CORPUSCULAR HEMOGLOBIN 30.4 pg (26.0-34.0); MEAN CORPUSCULAR HGB CONC 33.5 G/dL (31.0-37.0); MEAN CORPUSCULAR VOLUME 91 fL (80-100); MONOCYTES # (AUTO) 0.8 K/uL (0.1-1.0); MONOCYTES % (AUTO) 8.2 % (2.0-9.0); NEUTROPHILS % (AUTO) 75.8 % (40.0-70.0); PLATELET COUNT (AUTO) 250 K/uL (150-450); RED BLOOD CELL COUNT(AUTO) 4.03 MIL/uL (4.00-5.20); RED CELL DISTRIBUTION WIDTH 16.5 % (11.5-14.5)
[2018-12-17 20:18] LABS: CALCIUM, TOTAL 10.5 mg/dL (8.8-10.5); CREATININE 2.21 mg/dL (0.60-1.30); POTASSIUM 3.6 mmol/L (3.5-5.1)
[2018-12-17 20:26] LABS: AMMONIA < 10 umol/L (11-32); TROPONIN I 0.26 ng/mL (0.00-0.05)
[2018-12-17 20:43] LABS: ALBUMIN 3.8 g/dL (3.4-5.0); BILIRUBIN,TOTAL 0.6 mg/dL (0.1-1.0); TOTAL PROTEIN, SERUM 8.3 g/dL (6.4-8.2)
[2018-12-17] MEDS ORDERED: SODIUM CHLORIDE 0.9% 1,000 ML IV ONE (21:00)
[2018-12-17] MEDS ORDERED: ASPIRIN 81 MG CHEWABLE TABLET PO ONE (21:15)
[2018-12-17] MEDS ORDERED: ONDANSETRON HCL 4 MG/2 ML VIAL IVP PRN (21:30)
[2018-12-17] MEDS ORDERED: ACETAMINOPHEN 325 MG TABLET PO PRN (21:30)
[2018-12-18 00:52] VITALS: BP 134/98
[2018-12-18] MEDS ORDERED: ACETAMINOPHEN 325 MG TABLET PO PRN (02:45)
[2018-12-18] MEDS ORDERED: 0.9% SODIUM CHLORIDE 10 ML SYRINGE IVP PRN (02:45)
[2018-12-18] MEDS ORDERED: MAGNESIUM HYDROXIDE SUSPENSION 30 ML UDCUP PO PRN (02:45)
[2018-12-18] MEDS ORDERED: OxyCODONE HCL/ACETAMINOPHEN 5-325 MG TABLET PO PRN (02:45)
[2018-12-18] MEDS ORDERED: ONDANSETRON HCL 4 MG/2 ML VIAL IVP PRN (02:45)
[2018-12-18] MEDS: SODIUM CHLORIDE 0.9% 1,000 ML IV SCH ×2 (03:41→11:03)
[2018-12-18 04:38] VITALS: BP 153/82
[2018-12-18] MEDS ORDERED: INSULIN LISPRO 100 UNITS/ML SQ PRN (05:30)
[2018-12-18] MEDS ORDERED: DEXTROSE 50%-WATER 25 GM/50 ML SYRINGE IVP PRN (05:30)
[2018-12-18 05:49] LABS: GLUCOMETER DEV NAME(LOC) 5S.1; GLUCOSE,POINT OF CARE 138 MG/DL (70-110)
[2018-12-18 06:55] LABS: GLUCOMETER DEV NAME(LOC) 5S.1; GLUCOSE,POINT OF CARE 116 MG/DL (70-110)
[2018-12-18 07:50] VITALS: BP 142/78
[2018-12-18] MEDS: HydrALAZINE HCL 25 MG TABLET PO SCH ×3 (08:30→20:36)
[2018-12-18] MEDS: GABAPENTIN 100 MG CAPSULE PO SCH ×3 (08:30→20:38)
[2018-12-18] MEDS: FAMOTIDINE 20 MG TABLET PO SCH (08:30)
[2018-12-18] MEDS: DOCUSATE SODIUM 100 MG CAPSULE PO SCH ×2 (08:30→20:36)
[2018-12-18] MEDS: SODIUM CHLORIDE 0.45% 1,000 ML IV SCH ×2 (11:02→23:05)
[2018-12-18 11:34] VITALS: BP 122/78
[2018-12-18 19:40] LABS: GLUCOMETER DEV NAME(LOC) 5S.1; GLUCOSE,POINT OF CARE 131 MG/DL (70-110)
[2018-12-18] MEDS: SIMVASTATIN 20 MG TABLET PO SCH (20:38)
[2018-12-18] MEDS: QUEtiapine FUMARATE 25 MG TABLET PO SCH (20:38)
[2018-12-19] MEDS: SODIUM CHLORIDE 0.9% 1,000 ML IV SCH ×2 (03:45→16:15)
[2018-12-19 05:14] VITALS: BP 161/126
[2018-12-19] MEDS: HydrALAZINE HCL 25 MG TABLET PO SCH ×3 (09:00→17:34)
[2018-12-19] MEDS: GABAPENTIN 100 MG CAPSULE PO SCH ×2 (09:00→17:34)
[2018-12-19] MEDS: FAMOTIDINE 20 MG TABLET PO SCH (09:00)
[2018-12-19] MEDS: DOCUSATE SODIUM 100 MG CAPSULE PO SCH ×2 (09:00→21:17)
[2018-12-19 11:43] VITALS: BP 100/73
[2018-12-19] MEDS: SODIUM CHLORIDE 0.45% 1,000 ML IV SCH (13:34)
[2018-12-19] MEDS: OxyCODONE HCL/ACETAMINOPHEN 5-325 MG TABLET PO PRN ×2 (17:34→21:41)
[2018-12-19 17:39] VITALS: BP 149/99
[2018-12-19 19:45] VITALS: BP 151/93
[2018-12-19] MEDS: SIMVASTATIN 20 MG TABLET PO SCH (21:17)
[2018-12-19] MEDS: QUEtiapine FUMARATE 25 MG TABLET PO SCH (21:17)
[2018-12-20] MEDS: SODIUM CHLORIDE 0.45% 1,000 ML IV SCH (03:52)
[2018-12-20 04:00] VITALS: BP 148/88
[2018-12-20] MEDS: SODIUM CHLORIDE 0.9% 1,000 ML IV SCH (04:45)
[2018-12-20 07:48] VITALS: BP 120/77
[2018-12-20] MEDS: DOCUSATE SODIUM 100 MG CAPSULE PO SCH (08:20)
[2018-12-20] MEDS: FAMOTIDINE 20 MG TABLET PO SCH (08:27)
[2018-12-20] MEDS: GABAPENTIN 100 MG CAPSULE PO SCH ×2 (08:27)
[2018-12-20] MEDS: OxyCODONE HCL/ACETAMINOPHEN 5-325 MG TABLET PO PRN (08:27)
[2018-12-20] MEDS: HydrALAZINE HCL 25 MG TABLET PO SCH ×2 (08:27)
[2018-12-20] MEDS ORDERED: PARoxetine HCL 20 MG TABLET PO SCH (09:30)
[2018-12-20 11:18] VITALS: BP 140/80
[2018-12-20] MEDS ORDERED: PARO20TA24 PO (11:39)
[2018-12-20] MEDS ORDERED: QUET25TA PO (11:39)
[2018-12-20] MEDS ORDERED: QUET100T PO (11:39)
[2018-12-20] MEDS ORDERED: QUEtiapine FUMARATE 100 MG TABLET PO SCH (21:00)
[2018-12-21 08:56] LABS: GLUCOMETER DEV NAME(LOC) 6N.2; GLUCOSE,POINT OF CARE 85 MG/DL (70-110)
[2018-12-21 08:56] LABS: GLUCOMETER DEV NAME(LOC) 6N.2; GLUCOSE,POINT OF CARE 128 MG/DL (70-110)
[2018-12-21 08:56] LABS: GLUCOMETER DEV NAME(LOC) 6N.2; GLUCOSE,POINT OF CARE 122 MG/DL (70-110)
[2018-12-21] MEDS ORDERED: QUEtiapine FUMARATE 25 MG TABLET PO SCH (09:00)
== END 2018-12-20 13:45 | disposition home or self-care (01) | DRG 683 ==
LOC: EMS 18:46 → 5S 21:16 → 6N 12-19 16:45
PROVIDERS: ADMIT Internal Medicine; ATTEND Internal Medicine
DX: N17.9 Acute kidney failure, unspecified (principal); E87.0 Hyperosmolality and hypernatremia; F20.0 Paranoid schizophrenia; E87.1 Hypo-osmolality and hyponatremia; R55 Syncope and collapse; E86.0 Dehydration; E11.65 Type 2 diabetes mellitus with hyperglycemia; E78.00 Pure hypercholesterolemia, unspecified; I10 Essential (primary) hypertension; E78.5 Hyperlipidemia, unspecified; F03.90 Unspecified dementia, unspecified severity, without behavioral disturbance, psychotic disturbance, mood disturbance, and anxiety; F17.210 Nicotine dependence, cigarettes, uncomplicated; F31.9 Bipolar disorder, unspecified; G40.909 Epilepsy, unspecified, not intractable, without status epilepticus; I25.10 Atherosclerotic heart disease of native coronary artery without angina pectoris; K21.9 Gastro-esophageal reflux disease without esophagitis; W01.0XXA Fall on same level from slipping, tripping and stumbling without subsequent striking against object, initial encounter; Z79.899 Other long term (current) drug therapy; Z86.73 Personal history of transient ischemic attack (TIA), and cerebral infarction without residual deficits; Z95.1 Presence of aortocoronary bypass graft; Z90.710 Acquired absence of both cervix and uterus; Y93.89 Activity, other specified; Y92.89 Other specified places as the place of occurrence of the external cause; Y99.8 Other external cause status
CPT/HCPCS: 70450; 72125; 93005; J7030

== ENCOUNTER 2020-03-29 13:50 | Emergency (ER) | payer MEDICARE, MEDICAID ==
[~2020-03-29] VITALS: Ht 165.1 cm; Wt 83.4 kg
[2020-03-29 15:16] LABS: BASOPHILS % (AUTO) 0.4 % (0.0-2.0); EOSINOPHILS % (AUTO) 1.7 % (1.0-6.0); HEMATOCRIT 34.3 % (36-46); HEMOGLOBIN 11.6 g/dL (12.0-16.0); LYMPHOCYTES # (AUTO) 1.5 K/uL (1.0-4.8); LYMPHOCYTES % (AUTO) 17.9 % (22.0-44.0); MEAN CORPUSCULAR HEMOGLOBIN 29.8 pg (26.0-34.0); MEAN CORPUSCULAR HGB CONC 33.8 G/dL (31.0-37.0); MEAN CORPUSCULAR VOLUME 88 fL (80-100); MONOCYTES # (AUTO) 0.6 K/uL (0.1-1.0); MONOCYTES % (AUTO) 7.3 % (2.0-9.0); NEUTROPHILS # (AUTO) 6.1 K/uL (1.8-7.7); NEUTROPHILS % (AUTO) 72.7 % (40.0-70.0); PLATELET COUNT (AUTO) 345 K/uL (150-450); RED BLOOD CELL COUNT(AUTO) 3.88 MIL/uL (4.00-5.20); RED CELL DISTRIBUTION WIDTH 18.6 % (11.5-14.5)
[2020-03-29 15:28] LABS: APPEARANCE,URINE CLOUDY (CLEAR); BILIRUBIN,URINE NEGATIVE (NEGATIVE); GLUCOSE, URINE (UA) NEGATIVE (NEGATIVE); KETONES,URINE TRACE mg/dL (NEGATIVE); LEUKOCYTE ESTERASE ,URINE SMALL (NEGATIVE); NITRATE,URINE NEGATIVE (NEGATIVE); OCCULT BLOOD,URINE LARGE (NEGATIVE); PH,URINE 6.5 (5.0-8.0); PROTEIN,URINE SEE CONFIRM (NEGATIVE); UROBILINOGEN,URINE 0.2 mg/dL (<=1.0)
[2020-03-29 15:32] LABS: AMPHET/METH SCREEN,URINE POSITIVE (NEGATIVE); BARBITURATE SCREEN, URINE NEGATIVE (NEGATIVE); BENZODIAZEPINES SCREEN,URINE NEGATIVE (NEGATIVE); CANNABINOID SCREEN,URINE NEGATIVE (NEGATIVE); COCAINE SCREEN,URINE NEGATIVE (NEGATIVE); METHADONE SCREEN, URINE NEGATIVE (NEGATIVE); OPIATE SCREEN,URINE NEGATIVE (NEGATIVE); PHENCYCLIDINE SCREEN,URINE NEGATIVE (NEGATIVE)
[2020-03-29 15:34] LABS: ANION GAP 10 mmol/L (8-16); CALCIUM, TOTAL 9.5 mg/dL (8.8-10.5); CARBON DIOXIDE 24 mmol/L (22-29); CHLORIDE 105 mmol/L (98-107); CREATININE 2.82 mg/dL (0.60-1.30); GLOMERULAR FILTR. RATE CALC 20 mL/min (>60); GLUCOSE,RANDOM 110 mg/dL (70-110); POTASSIUM 3.7 mmol/L (3.5-5.1); SODIUM SERUM 139 mmol/L (136-145); UREA NITROGEN, BLOOD 26 mg/dL (7-18)
[2020-03-29 15:34] LABS: RBC,URINE >100 /HPF (0-2); SULFOSALICYLIC ACID,URINE 3+ (Negative)
[2020-03-29 15:35] LABS: BACTERIA,URINE Moderate /HPF (None Seen); SQUAMOUS EPITHELIAL CELL,UR Moderate /LPF (None Seen)
[2020-03-29 15:40] LABS: ALANINE AMINOTRANSFERASE 18 U/L (12-78); ALBUMIN 3.7 g/dL (3.4-5.0); ALKALINE PHOSPHATASE 92 U/L (46-116); ASPARTATE AMINOTRANSFERASE 21 U/L (15-37); BILIRUBIN,TOTAL 0.4 mg/dL (0.1-1.0); TOTAL PROTEIN, SERUM 8.3 g/dL (6.4-8.2)
[2020-03-29 17:08] VITALS: BP 182/92
== END 2020-03-29 19:28 | disposition home or self-care (01) ==
LOC: EMS 13:54
DX: F20.9 Schizophrenia, unspecified (principal); F15.10 Other stimulant abuse, uncomplicated; N39.0 Urinary tract infection, site not specified; F31.9 Bipolar disorder, unspecified; I25.10 Atherosclerotic heart disease of native coronary artery without angina pectoris; E11.9 Type 2 diabetes mellitus without complications; K21.9 Gastro-esophageal reflux disease without esophagitis; E78.00 Pure hypercholesterolemia, unspecified; I10 Essential (primary) hypertension; F17.210 Nicotine dependence, cigarettes, uncomplicated; Z90.710 Acquired absence of both cervix and uterus
CPT/HCPCS: 36415; 80053; 80307; 81001; 85025; 87086; 99284; G0480